=== PATIENT | male | born 1960 | race Hispanic/Latino ===

== ENCOUNTER 2018-01-18 16:32 | Inpatient (IN) | payer MEDICAID ==
[2018-01-17 23:17] VITALS: BMI 28.8
[2018-01-18] MEDS: Propofol 10 mg/ml 1,000 MG/100 ML VIAL IV PRN (16:59)
[2018-01-18] MEDS ORDERED: (Novolin R) Insulin Human Regular 100 units/ml vial SC SCH (17:00)
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
[2018-01-18] MEDS: DOBUTamine 500mg/250ml D5W 500 MG/250 ML BAG IV SCH (17:14)
[2018-01-18 17:33] LABS: BASO % 0.2 % (0.0-2.0); HEMOGLOBIN 11.4 g/dL (12.0-18.0); LYMPH # 0.3 K/uL (1.0-4.3); LYMPH % 4.1 % (20.0-40.0); MEAN CELL VOLUME 87.5 fL (80.0-94.0); MEAN CORPUSCULAR HEMOGLOBIN 28.8 pg (27.0-31.0); MEAN CORPUSCULAR HGB CONC 32.9 g/dL (33.0-37.0); MEAN PLATELET VOLUME 10.2 fL (7.2-11.7); MONO # 0.3 K/uL (0.0-0.8); MONO % 4.1 % (0.0-10.0); NEUT # 7.2 K/uL (1.8-7.0); NEUT % 91.6 % (50.0-75.0); PLATELET COUNT 144 K/uL (130-400); RBC 3.97 Mil/uL (4.40-5.90); RED CELL DISTRIBUTION WIDTH 16.3 % (11.5-14.5); WHITE BLOOD COUNT 7.9 K/uL (4.8-10.8)
[2018-01-18 17:48] LABS: ALB/GLOB RATIO 1.3 (1.0-2.1); ALBUMIN 3.6 g/dL (3.5-5.0); CALCIUM 7.4 mg/dl (8.6-10.4)
[2018-01-18] MEDS ORDERED: Sod Polystyrene Sulf 15 gm/60 ml Susp PO ONE (17:56)
[2018-01-18 18:14] LABS: HEPATITIS B SURFACE AG Negative (NEGATIVE)
[2018-01-18 18:21] LABS: HEPATITIS A IGM NEGATIVE (NEGATIVE); HEPATITIS B CORE AB NEGATIVE (NEGATIVE)
[2018-01-18 18:31] LABS: HEPATITIS C ANTIBODY NEGATIVE (NEGATIVE)
[2018-01-18 18:54] LABS: BASOPHIL 1 % (0-2); LYMPHOCYTE 6 % (20-40); MONOCYTE 5 % (0-10); NEUTROPHIL 88 % (50-75); PLATELET ESTIMATE NORMAL (NORMAL); TOTAL CELLS COUNTED 100
[2018-01-18 18:55] LABS: ANISOCYTOSIS SLIGHT; BURR CELLS SLIGHT; HYPOCHROMIC SLIGHT; OVALOCYTES SLIGHT; POIKILOCYTOSIS SLIGHT
[2018-01-19] MEDS: (Novolin R) Insulin Human Regular 100 units/ml vial SC SCH ×5 (00:25→21:26)
[2018-01-19] MEDS: Propofol 10 mg/ml 1,000 MG/100 ML VIAL IV PRN (04:32)
[2018-01-19 06:48] LABS: HEMOGLOBIN 11.3 g/dL (12.0-18.0); LYMPH # 0.3 K/uL (1.0-4.3); LYMPH % 3.7 % (20.0-40.0); MEAN CORPUSCULAR HEMOGLOBIN 29.5 pg (27.0-31.0); MEAN CORPUSCULAR HGB CONC 33.9 g/dL (33.0-37.0); MONO # 0.5 K/uL (0.0-0.8); MONO % 5.8 % (0.0-10.0); NEUT # 7.1 K/uL (1.8-7.0); NEUT % 90.5 % (50.0-75.0); PLATELET COUNT 124 K/uL (130-400); RBC 3.82 Mil/uL (4.40-5.90); RED CELL DISTRIBUTION WIDTH 16.2 % (11.5-14.5); WHITE BLOOD COUNT 7.8 K/uL (4.8-10.8)
[2018-01-19 06:53] LABS: ALB/GLOB RATIO 1.2 (1.0-2.1); ALBUMIN 3.4 g/dL (3.5-5.0); CALCIUM 8.3 mg/dl (8.6-10.4)
--- NOTE | 2018-01-19 07:57 | RAD ---
PROCEDURE: CHEST RADIOGRAPH, 1 VIEW HISTORY: intubated COMPARISON: None available. FINDINGS: LUNGS: Hazy opacity left lung base compatible with left inferolateral pleural thickening and fluid. Concomitant compressive atelectasis here possible. No dense consolidation noted. PLEURA: No pneumothorax. Left inferolateral pleural thickening/ fluid CARDIOVASCULAR: Mild cardiomegaly. Sternotomy. Coronary artery bypass clips. OSSEOUS STRUCTURES: Possible old healed right lateral rib fracture VISUALIZED UPPER ABDOMEN: Normal. OTHER FINDINGS: Endotracheal tube tip 3.5 cm cephalad to ayush Inferred nasogastric tube tip inferior to the inferior field of view image. At least coursing stomach. IMPRESSION: Left inferolateral pleural effusion/thickening. Concomitant subsegmental atelectasis (and/or infiltrate) also needs to be considered
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
[2018-01-19] MEDS: Cefepime IV 1 gm in Dextrose 1 GM/50 ML BAG IVPB SCH (09:07)
[2018-01-19 09:30] LABS: LYMPHOCYTE 4 % (20-40); MONOCYTE 4 % (0-10); NEUTROPHIL 92 % (50-75); TOTAL CELLS COUNTED 100
--- NOTE | 2018-01-19 09:30 | CP.PCM.PN ---
Subjective - Date & Time of Evaluation Date of Evaluation: 01/19/18 Time of Evaluation: 09:25 - Subjective Subjective: Medical Attending Note: Patient is awake and alert. He is not oriented. He is does not know where he is which is expected nor recall the events that brought him here. Patient does not have family except his friend Geoffrey Patient reports he is in pain over the chest. I have explained to him that he had chest compressions when he arrested at [facility] and that he is currently at [facility] because they can perform dialysis. Patient underwent dialysis. I spoke with his nurse, Rubia, they have lowered the sedation on him since he was apneic when they tried cpap trials overnight. He reports he is aware of tube and he feels it. He is ambivalent about immediate removal of the ET tube. He does not remember creation of POLST from prior hospitalization. He is amenable to discussion with the ICU in regards to the tube. He denies headache, reports chest pain, denies abdominal pain, and reports he was having diarrhea. patient is on 2 pressors, low sedation. Objective - Vital Signs/Intake and Output Vital Signs (last 24 hours): Temp Pulse Resp BP Pulse Ox 98.7 F 94 H 17 155/74 H 99 01/19/18 08:00 01/19/18 08:00 01/19/18 08:00 01/19/18 08:00 01/19/18 08:00 Intake and Output: 01/19/18 01/19/18 06:59 18:59 Intake Total 306.1 78.3 Output Total 345 25 Balance -38.9 53.3 - Medications Medications: Current Medications Acetaminophen (Tylenol 650 Mg Supp) 650 mg WA Q6H PRN PRN Reason: Fever >100.4 F Aspirin (Aspirin Chewable) 81 mg PO DAILY [facility] Last Admin: 01/19/18 09:09 Dose: 81 mg Calcium Acetate (Phoslo) 667 mg PO BIDCC [facility] Last Admin: 01/19/18 07:38 Dose: 667 mg Epoetin Jasiel (Procrit) 10,000 unit IV TTS [facility] Last Admin: 01/19/18 09:06 Dose: 10,000 unit Heparin Sodium (Porcine) (Heparin) 5,000 units SC Q8 [facility] Last Admin: 01/19/18 05:26 Dose: 5,000 units Hydrocortisone Sodium Succinate (Solu-Cortef) 50 mg IV Q8H [facility] Last Admin: 01/19/18 08:05 Dose: 50 mg Norepinephrine Bitartrate 8 mg (/ Sodium Chloride) 258 mls @ 7.74 mls/hr IV .Q24H PRN; Protocol; 4 MCG/MIN PRN Reason: TITRATE PER MD ORDER Propofol (Diprivan) 1,000 mg in 100 mls @ 2.585 mls/hr IV .Q24H PRN; Protocol; 5 MCG/KG/MIN PRN Reason: TITRATE PER MD ORDER Last Titration: 01/19/18 07:38 Dose: 5 mcg/kg/min, 2.585 mls/hr Dobutamine HCl/Dextrose (Dobutamine/Dextrose 5% 500mg/250ml) 500 mg in 250 mls @ 6.464 mls/hr IV .Q24H [facility]; 2.5 MCG/KG/MIN PRN Reason: Protocol Last Admin: 01/18/18 17:14 Dose: 2.5 mcg/kg/min, 6.464 mls/hr Cefepime HCl (Maxipime Iv 1 Gm Premix) 1 gm in 50 mls @ 100 mls/hr IVPB Q24H [facility] PRN Reason: Protocol Last Admin: 01/19/18 09:07 Dose: 100 mls/hr Insulin Human Regular (Novolin R) 0 unit SC Q6H [facility] PRN Reason: Protocol Last Admin: 01/19/18 06:11 Dose: 2 u Pantoprazole Sodium (Protonix Inj) 40 mg IVP DAILY [facility] Last Admin: 01/19/18 09:06 Dose: 40 mg - Labs Labs: 01/19/18 06:32 01/19/18 06:20 - Constitutional Appears: Non-toxic, No Acute Distress - Head Exam Additional comments: intubated. OGT. - Eye Exam Eye Exam: EOMI, PERRL - Respiratory Exam Respiratory Exam: Decreased Breath Sounds, Rales (bibasilar) Additional comments: intubated on vent PRVC AC - Cardiovascular Exam Cardiovascular Exam: REGULAR RHYTHM, +S1, +S2 - GI/Abdominal Exam GI & Abdominal Exam: Soft, Normal Bowel Sounds. absent: Distended, Firm, Guarding, Rigid, Tenderness, Rebound - Exam Additional comments: TVP via the groin (right side) Harris placed - Extremities Exam Extremities Exam: absent: Pedal Edema, Tenderness - Neurological Exam Neurological Exam: Alert, Awake Neuro motor strength exam: Left Upper Extremity: 5, Right Upper Extremity: 5, Left Lower Extremity: 5, Right Lower Extremity: 5 - Psychiatric Exam Psychiatric exam: Normal Affect, Normal Mood - Skin Skin Exam: Dry, Normal Color, Warm Assessment and Plan (1) Heart block Assessment & Plan: patient was found in complete heart block, cardiogenic shock and hyperkalemic on 01/18/18. Had a temporary venous pacemaker placed on 01/18/18 Was code blue and code heart 01/18/18 Transferred to [facility] for dialysis primarily Status: Acute (2) Cardiogenic shock Assessment & Plan: Patient is on 2 pressors Has temporary pacemaker at [facility]. Status: Acute (3) History of NJ (myocardial infarction) Assessment & Plan: 3 prior of NJ Official cardiac cath not available from [facility]--> per review of record no acute occlusion and temporary Echocardiogram (01/18/18): left ventricle is normal size, systolic function is moderately impaired EF:30% mitral regurgitation is trace, trace tricupsid regurgitation, s/p cardiac arrest, s/p TVR, and cardiac cath prior cath (04/07/17): inferobasal hypokinesis of the LV with preserved LV function EF: 50%. 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 Patent saphenous vein graft to the posterior lateral branch. Chronic. Aspirin 81mg PO daily Status: Acute (4) Hx of CABG Assessment & Plan: 3 prior of [place] Echocardiogram (01/18/18): left ventricle is normal size, systolic function is moderately impaired EF:30% mitral regurgitation is trace, trace tricupsid regurgitation, s/p cardiac arrest, s/p TVR, and cardiac cath prior cath (04/07/17): inferobasal hypokinesis of the LV with preserved LV function EF: 50%. 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 Patent saphenous vein graft to the posterior lateral branch. Chronic. Status: Acute (5) Diabetes Assessment & Plan: hgba1c: 7.6 Accuchecks Q6H insulin sliding scale subq Status: Acute (6) Amputation foot, unilat Assessment & Plan: right lower extremity Status: Chronic (7) Pneumonia Assessment & Plan: Cefepime 1gram IV q12 Status: Acute (8) ESRD (end stage renal disease) on dialysis Assessment & Plan: Nephrology (Dr. Wilson) help appreciated patient underwent dialysis last night when he was transferred from [facility] He is //thursday as outpatient Status: Acute (9) Prophylactic measure Assessment & Plan: POLST: DNR/DNI Surrogate: Geoffrey Oro [phone] Status: Acute
[2018-01-19 09:31] LABS: ANISOCYTOSIS SLIGHT; PLATELET ESTIMATE NORMAL (NORMAL)
[2018-01-19] MEDS ORDERED: Epoetin Alfa 10,000 unit/ml Dialysis IV SCH (10:00)
--- NOTE | 2018-01-19 10:08 | US ---
Right upper quadrant abdominal ultrasound History: Elevated liver enzymes. Comparison: None available. Technique: Real-time sonography was performed through the right upper quadrant of the abdomen. Findings: Liver: 18 centimeters in length. Increased echogenicity of the hepatic parenchymal cortex suggestive for fatty infiltration versus hepatic parenchymal disease. Clinical correlation. Prior cholecystectomy. Common bile duct measures 6 millimeters, within normal limits. Limited visualization of the pancreas. Visualized aorta and IVC are preserved. Right kidney: 9.8 x 4.8 x 4.8 centimeters. Increased echogenicity of the renal parenchymal cortex suggestive for medical renal disease. No calculi or hydronephrosis. Right pleural effusion noted. Impression: Increased echogenicity of the hepatic parenchymal cortex suggestive for fatty infiltration versus hepatic parenchymal disease. Clinical correlation. Prior cholecystectomy. Increased echogenicity of the renal parenchymal cortex suggestive for medical renal disease. Clinical correlation. Limited visualization of the pancreas. Right pleural effusion.
--- NOTE | 2018-01-19 11:45 | CP.CCUPN ---
<Annel Fraser - Last Filed: 01/19/18 11:43> CCU Subjective - Physician Review Subjective (Free Text): Patient seen and examined at bedside. Patient is extubated. He spoke with palliative care, if he decompensates he does not want to be reintubated. POLST DNR/DNI. CCU Objective - Vital Signs / Intake & Output Vital Signs (Last 4 hours): Vital Signs Temp Pulse Resp BP Pulse Ox 01/19/18 11:00 100 H 16 139/74 99 01/19/18 10:00 97 H 15 128/63 98 01/19/18 09:00 96 H 17 154/73 H 99 01/19/18 08:00 98.7 F 94 H 17 155/74 H 99 Intake and Output (Last 8hrs): Intake & Output 01/18/18 01/19/18 01/19/18 22:59 06:59 14:59 Intake Total 93.6 231.5 153.7 Output Total 125 220 170 Balance -31.4 11.5 -16.3 Weight 86 lb 4.8 oz 198 lb 8 oz Intake: IV 15 105 10 Intake, IV Amount 78.6 126.5 43.7 Left Distal Port Femoral 40.8 54.4 34.0 Left Medial Port Femoral 37.8 72.1 9.7 Oral 0 Tube Feeding 0 100 Output: Gastric Amount 100 100 100 Stomach 100 100 100 Urine 25 120 70 Urethral (Harris) 25 120 70 Other: Voiding Method Indwelling Catheter # Bowel Movements 1 0 - Physical Exam Head: Positive for: Atraumatic, Normocephalic Pupils: Positive for: PERRL Extroacular Muscles: Positive for: EOMI Conjunctiva: Positive for: Normal Mouth: Positive for: Dry Respiratory/Chest: Positive for: Clear to Auscultation Cardiovascular: Positive for: Regular Rate and Rhythm Abdomen: Positive for: Normal Bowel Sounds - Medications Active Medications: Active Medications Generic Name Dose Route Start Last Admin Trade Name Freq PRN Reason Stop Dose Admin Acetaminophen 650 mg 01/18/18 16:37 Tylenol 650 Mg Supp NE Q6H PRN Fever >100.4 F Aspirin 81 mg 01/19/18 10:00 01/19/18 09:09 Aspirin Chewable PO 81 mg DAILY DESTINI Administration Calcium Acetate 1,334 mg 01/19/18 09:45 01/19/18 10:19 Phoslo PO 1,334 mg TIDCC DESTINI Administration Heparin Sodium (Porcine) 5,000 units 01/18/18 22:00 01/19/18 05:26 Heparin SC 5,000 units Q8 DESTINI Administration Hydrocortisone Sodium Succinate 50 mg 01/18/18 17:00 01/19/18 08:05 Solu-Cortef IV 50 mg Q8H DESTINI Administration Norepinephrine Bitartrate 8 mg 258 mls @ 7.74 mls/hr 01/18/18 16:44 / Sodium Chloride IV .Q24H PRN TITRATE PER MD ORDER Protocol 4 MCG/MIN Propofol 1,000 mg in 100 mls @ 2.585 mls/hr 01/18/18 16:46 01/19/18 09:39 Diprivan IV 0 mcg/kg/min .Q24H PRN 0 mls/hr TITRATE PER MD ORDER Titration Protocol 5 MCG/KG/MIN Dobutamine HCl/Dextrose 500 mg in 250 mls @ 6.464 mls/hr 01/18/18 17:00 01/18 17:14 Dobutamine/Dextrose 5% 500mg/250ml IV 2.5 mcg/kg/min .Q24H DESTINI 6.464 mls/hr Protocol Administration 2.5 MCG/KG/MIN Cefepime HCl 1 gm in 50 mls @ 100 mls/hr 01/19/18 10:00 01/19/18 09:07 Maxipime Iv 1 Gm Premix IVPB 100 mls/hr Q24H DESTINI Administration Protocol Insulin Human Regular 0 unit 01/19/18 00:00 01/19/18 06:11 Novolin R SC 2 u Q6H DESTINI Administration Protocol Pantoprazole Sodium 40 mg 01/19/18 10:00 01/19/18 09:06 Protonix Inj IVP 40 mg DAILY DESTINI Administration - Patient Studies Lab Studies: Lab Studies 01/19/18 01/19/18 01/19/18 Range/Units 06:38 06:32 06:20 WBC 7.8 (4.8-10.8) K/uL RBC 3.82 L (4.40-5.90) Mil/uL Hgb 11.3 L (12.0-18.0) g/dL Hct 33.3 L (35.0-51.0) % MCV 87.0 (80.0-94.0) fL MCH 29.5 (27.0-31.0) pg MCHC 33.9 (33.0-37.0) g/dL RDW 16.2 H (11.5-14.5) % Plt Count 124 L D (130-400) K/uL MPV 10.0 (7.2-11.7) fL Neut % (Auto) 90.5 H (50.0-75.0) % Lymph % (Auto) 3.7 L (20.0-40.0) % Hartley % (Auto) 5.8 (0.0-10.0) % Eos % (Auto) 0.0 (0.0-4.0) % Baso % (Auto) 0.0 (0.0-2.0) % Neut # (Auto) 7.1 H (1.8-7.0) K/uL Lymph # (Auto) 0.3 L (1.0-4.3) K/uL Hartley # (Auto) 0.5 (0.0-0.8) K/uL Eos # (Auto) 0.0 (0.0-0.7) K/uL Baso # (Auto) 0.0 (0.0-0.2) K/uL Neutrophils % (Manual) 92 H (50-75) % Lymphocytes % (Manual) 4 L (20-40) % Monocytes % (Manual) 4 (0-10) % Basophils % (Manual) (0-2) % Platelet Estimate Normal (NORMAL) Hypochromasia (manual) Poikilocytosis (manual Anisocytosis (manual) Slight Ovalocytes [place] Cells Sodium 135 (132-148) mmol/L Potassium 4.7 (3.6-5.2) mmol/L Chloride 94 L (98-107) mmol/L Carbon Dioxide 23 (22-30) mmol/L Anion Gap 23 H (10-20) BUN 47 H (9-20) mg/dL Creatinine 8.4 H* (0.8-1.5) mg/dL Est GFR ( Amer) 8 Est GFR (Non-Af Amer) 7 POC Glucose (mg/dL) (65-110) mg/dL Random Glucose 184 H (75-110) mg/dL Lactic Acid 1.0 (0.7-2.1) mmol/L Calcium 8.3 L (8.6-10.4) mg/dl Phosphorus 10.5 H (2.5-4.5) mg/dL Magnesium 1.9 (1.6-2.3) mg/dL Total Bilirubin 0.6 (0.2-1.3) mg/dL AST 243 H (17-59) U/L ALT 143 H (21-72) U/L Alkaline Phosphatase 75 (38-126) U/L Total Protein 6.3 (6.3-8.3) g/dL Albumin 3.4 L (3.5-5.0) g/dL Globulin 2.9 (2.2-3.9) gm/dL Albumin/Globulin Ratio 1.2 (1.0-2.1) Alpha Fetoprotein (0.0-7.5) ng/mL Random Vancomycin ug/mL Hepatitis A IgM Ab (NEGATIVE) Hep Bs Antigen (NEGATIVE) Hep B Core IgM Ab (NEGATIVE) Hepatitis C Antibody (NEGATIVE) 01/19/18 01/19/18 01/18/18 Range/Units 05:38 00:11 19:07 WBC (4.8-10.8) K/uL RBC (4.40-5.90) Mil/uL Hgb (12.0-18.0) g/dL Hct (35.0-51.0) % MCV (80.0-94.0) fL MCH (27.0-31.0) pg MCHC (33.0-37.0) g/dL RDW (11.5-14.5) % Plt Count (130-400) K/uL MPV (7.2-11.7) fL Neut % (Auto) (50.0-75.0) % Lymph % (Auto) (20.0-40.0) % Hartley % (Auto) (0.0-10.0) % Eos % (Auto) (0.0-4.0) % Baso % (Auto) (0.0-2.0) % Neut # (Auto) (1.8-7.0) K/uL Lymph # (Auto) (1.0-4.3) K/uL Hartley # (Auto) (0.0-0.8) K/uL Eos # (Auto) (0.0-0.7) K/uL Baso # (Auto) (0.0-0.2) K/uL Neutrophils % (Manual) (50-75) % Lymphocytes % (Manual) (20-40) % Monocytes % (Manual) (0-10) % Basophils % (Manual) (0-2) % Platelet Estimate (NORMAL) Hypochromasia (manual) Poikilocytosis (manual Anisocytosis (manual) Ovalocytes [place] Cells Sodium (132-148) mmol/L Potassium (3.6-5.2) mmol/L Chloride (98-107) mmol/L Carbon Dioxide (22-30) mmol/L Anion Gap (10-20) BUN (9-20) mg/dL Creatinine (0.8-1.5) mg/dL Est GFR ( Amer) Est GFR (Non-Af Amer) POC Glucose (mg/dL) 207 H 182 H (65-110) mg/dL Random Glucose (75-110) mg/dL Lactic Acid (0.7-2.1) mmol/L Calcium (8.6-10.4) mg/dl Phosphorus (2.5-4.5) mg/dL Magnesium (1.6-2.3) mg/dL Total Bilirubin (0.2-1.3) mg/dL AST (17-59) U/L ALT (21-72) U/L Alkaline Phosphatase (38-126) U/L Total Protein (6.3-8.3) g/dL Albumin (3.5-5.0) g/dL Globulin (2.2-3.9) gm/dL Albumin/Globulin Ratio (1.0-2.1) Alpha Fetoprotein (0.0-7.5) ng/mL Random Vancomycin ug/mL Hepatitis A IgM Ab (NEGATIVE) Hep Bs Antigen Negative (NEGATIVE) Hep B Core IgM Ab (NEGATIVE) Hepatitis C Antibody (NEGATIVE) 01/18/18 01/18/18 01/18/18 Range/Units 19:00 17:29 17:29 WBC (4.8-10.8) K/uL RBC (4.40-5.90) Mil/uL Hgb (12.0-18.0) g/dL Hct (35.0-51.0) % MCV (80.0-94.0) fL MCH (27.0-31.0) pg MCHC (33.0-37.0) g/dL RDW (11.5-14.5) % Plt Count (130-400) K/uL MPV (7.2-11.7) fL Neut % (Auto) (50.0-75.0) % Lymph % (Auto) (20.0-40.0) % Hartley % (Auto) (0.0-10.0) % Eos % (Auto) (0.0-4.0) % Baso % (Auto) (0.0-2.0) % Neut # (Auto) (1.8-7.0) K/uL Lymph # (Auto) (1.0-4.3) K/uL Hartley # (Auto) (0.0-0.8) K/uL Eos # (Auto) (0.0-0.7) K/uL Baso # (Auto) (0.0-0.2) K/uL Neutrophils % (Manual) (50-75) % Lymphocytes % (Manual) (20-40) % Monocytes % (Manual) (0-10) % Basophils % (Manual) (0-2) % Platelet Estimate (NORMAL) Hypochromasia (manual) Poikilocytosis (manual Anisocytosis (manual) Ovalocytes [place] Cells Sodium (132-148) mmol/L Potassium (3.6-5.2) mmol/L Chloride (98-107) mmol/L Carbon Dioxide (22-30) mmol/L Anion Gap (10-20) BUN (9-20) mg/dL Creatinine (0.8-1.5) mg/dL Est GFR ( Amer) Est GFR (Non-Af Amer) POC Glucose (mg/dL) (65-110) mg/dL Random Glucose (75-110) mg/dL Lactic Acid (0.7-2.1) mmol/L Calcium (8.6-10.4) mg/dl Phosphorus (2.5-4.5) mg/dL Magnesium (1.6-2.3) mg/dL Total Bilirubin (0.2-1.3) mg/dL AST (17-59) U/L ALT (21-72) U/L Alkaline Phosphatase (38-126) U/L Total Protein (6.3-8.3) g/dL Albumin (3.5-5.0) g/dL Globulin (2.2-3.9) gm/dL Albumin/Globulin Ratio (1.0-2.1) Alpha Fetoprotein 1.5 (0.0-7.5) ng/mL Random Vancomycin < 5.0 ug/mL Hepatitis A IgM Ab Negative (NEGATIVE) Hep Bs Antigen Negative (NEGATIVE) Hep B Core IgM Ab Negative (NEGATIVE) Hepatitis C Antibody Negative (NEGATIVE) 01/18/18 01/18/18 01/18/18 Range/Units 17:29 17:29 17:29 WBC 7.9 (4.8-10.8) K/uL RBC 3.97 L (4.40-5.90) Mil/uL Hgb 11.4 L (12.0-18.0) g/dL Hct 34.8 L (35.0-51.0) % MCV 87.5 (80.0-94.0) fL MCH 28.8 (27.0-31.0) pg MCHC 32.9 L (33.0-37.0) g/dL RDW 16.3 H (11.5-14.5) % Plt Count 144 (130-400) K/uL MPV 10.2 (7.2-11.7) fL Neut % (Auto) 91.6 H (50.0-75.0) % Lymph % (Auto) 4.1 L (20.0-40.0) % Hartley % (Auto) 4.1 (0.0-10.0) % Eos % (Auto) 0.0 (0.0-4.0) % Baso % (Auto) 0.2 (0.0-2.0) % Neut # (Auto) 7.2 H (1.8-7.0) K/uL Lymph # (Auto) 0.3 L (1.0-4.3) K/uL Hartley # (Auto) 0.3 (0.0-0.8) K/uL Eos # (Auto) 0.0 (0.0-0.7) K/uL Baso # (Auto) 0.0 (0.0-0.2) K/uL Neutrophils % (Manual) 88 H (50-75) % Lymphocytes % (Manual) 6 L (20-40) % Monocytes % (Manual) 5 (0-10) % Basophils % (Manual) 1 (0-2) % Platelet Estimate Normal (NORMAL) Hypochromasia (manual) Slight Poikilocytosis (manual Slight Anisocytosis (manual) Slight Ovalocytes Slight [place] Cells Slight Sodium 132 (132-148) mmol/L Potassium 5.6 H (3.6-5.2) mmol/L Chloride 93 L (98-107) mmol/L Carbon Dioxide 19 L (22-30) mmol/L Anion Gap 26 H (10-20) BUN 66 H (9-20) mg/dL Creatinine 10.5 H* D (0.8-1.5) mg/dL Est GFR ( Amer) 6 Est GFR (Non-Af Amer) 5 POC Glucose (mg/dL) (65-110) mg/dL Random Glucose 178 H (75-110) mg/dL Lactic Acid 1.8 (0.7-2.1) mmol/L Calcium 7.4 L (8.6-10.4) mg/dl Phosphorus 11.5 H (2.5-4.5) mg/dL Magnesium 1.8 (1.6-2.3) mg/dL Total Bilirubin 0.7 (0.2-1.3) mg/dL AST 228 H (17-59) U/L ALT 150 H (21-72) U/L Alkaline Phosphatase 72 (38-126) U/L Total Protein 6.4 (6.3-8.3) g/dL Albumin 3.6 (3.5-5.0) g/dL Globulin 2.7 (2.2-3.9) gm/dL Albumin/Globulin Ratio 1.3 (1.0-2.1) Alpha Fetoprotein (0.0-7.5) ng/mL Random Vancomycin ug/mL Hepatitis A IgM Ab (NEGATIVE) Hep Bs Antigen (NEGATIVE) Hep B Core IgM Ab (NEGATIVE) Hepatitis C Antibody (NEGATIVE) 01/18/18 Range/Units 17:25 WBC (4.8-10.8) K/uL RBC (4.40-5.90) Mil/uL Hgb (12.0-18.0) g/dL Hct (35.0-51.0) % MCV (80.0-94.0) fL MCH (27.0-31.0) pg MCHC (33.0-37.0) g/dL RDW (11.5-14.5) % Plt Count (130-400) K/uL MPV (7.2-11.7) fL Neut % (Auto) (50.0-75.0) % Lymph % (Auto) (20.0-40.0) % Hartley % (Auto) (0.0-10.0) % Eos % (Auto) (0.0-4.0) % Baso % (Auto) (0.0-2.0) % Neut # (Auto) (1.8-7.0) K/uL Lymph # (Auto) (1.0-4.3) K/uL Hartley # (Auto) (0.0-0.8) K/uL Eos # (Auto) (0.0-0.7) K/uL Baso # (Auto) (0.0-0.2) K/uL Neutrophils % (Manual) (50-75) % Lymphocytes % (Manual) (20-40) % Monocytes % (Manual) (0-10) % Basophils % (Manual) (0-2) % Platelet Estimate (NORMAL) Hypochromasia (manual) Poikilocytosis (manual Anisocytosis (manual) Ovalocytes [place] Cells Sodium (132-148) mmol/L Potassium (3.6-5.2) mmol/L Chloride (98-107) mmol/L Carbon Dioxide (22-30) mmol/L Anion Gap (10-20) BUN (9-20) mg/dL Creatinine (0.8-1.5) mg/dL Est GFR ( Amer) Est GFR (Non-Af Amer) POC Glucose (mg/dL) 176 H (65-110) mg/dL Random Glucose (75-110) mg/dL Lactic Acid (0.7-2.1) mmol/L Calcium (8.6-10.4) mg/dl Phosphorus (2.5-4.5) mg/dL Magnesium (1.6-2.3) mg/dL Total Bilirubin (0.2-1.3) mg/dL AST (17-59) U/L ALT (21-72) U/L Alkaline Phosphatase (38-126) U/L Total Protein (6.3-8.3) g/dL Albumin (3.5-5.0) g/dL Globulin (2.2-3.9) gm/dL Albumin/Globulin Ratio (1.0-2.1) Alpha Fetoprotein (0.0-7.5) ng/mL Random Vancomycin ug/mL Hepatitis A IgM Ab (NEGATIVE) Hep Bs Antigen (NEGATIVE) Hep B Core IgM Ab (NEGATIVE) Hepatitis C Antibody (NEGATIVE) Laboratory Results - last 24 hr 01/18/18 01/18/18 01/18/18 17:25 17:29 17:29 WBC 7.9 RBC 3.97 L Hgb 11.4 L Hct 34.8 L MCV 87.5 MCH 28.8 MCHC 32.9 L RDW 16.3 H Plt Count 144 MPV 10.2 Neut % (Auto) 91.6 H Lymph % (Auto) 4.1 L [place] % (Auto) 4.1 Eos % (Auto) 0.0 Baso % (Auto) 0.2 Neut # (Auto) 7.2 H Lymph # (Auto) 0.3 L [place] # (Auto) 0.3 Eos # (Auto) 0.0 Baso # (Auto) 0.0 Neutrophils % (Manual) 88 H Lymphocytes % (Manual) 6 L Monocytes % (Manual) 5 Basophils % (Manual) 1 Platelet Estimate Normal Hypochromasia (manual) Slight Poikilocytosis (manual Slight Anisocytosis (manual) Slight Ovalocytes Slight [place] Cells Slight Sodium 132 Potassium 5.6 H Chloride 93 L Carbon Dioxide 19 L Anion Gap 26 H BUN 66 H Creatinine 10.5 H* D Est GFR ( Amer) 6 Est GFR (Non-Af Amer) 5 POC Glucose (mg/dL) 176 H Random Glucose 178 H Lactic Acid Calcium 7.4 L Phosphorus 11.5 H Magnesium 1.8 Total Bilirubin 0.7 AST 228 H ALT 150 H Alkaline Phosphatase 72 Total Protein 6.4 Albumin 3.6 Globulin 2.7 Albumin/Globulin Ratio 1.3 Alpha Fetoprotein Random Vancomycin Hepatitis A IgM Ab Hep Bs Antigen Hep B Core IgM Ab Hepatitis C Antibody 01/18/18 01/18/18 01/18/18 17:29 17:29 17:29 WBC RBC Hgb Hct MCV MCH MCHC RDW Plt Count MPV Neut % (Auto) Lymph % (Auto) [place] % (Auto) Eos % (Auto) Baso % (Auto) Neut # (Auto) Lymph # (Auto) Hart[place] # (Auto) Eos # (Auto) Baso # (Auto) Neutrophils % (Manual) Lymphocytes % (Manual) Monocytes % (Manual) Basophils % (Manual) Platelet Estimate Hypochromasia (manual) Poikilocytosis (manual Anisocytosis (manual) Ovalocytes [place] Cells Sodium Potassium Chloride Carbon Dioxide Anion Gap BUN Creatinine Est GFR ( Amer) Est GFR (Non-Af Amer) POC Glucose (mg/dL) Random Glucose Lactic Acid 1.8 Calcium Phosphorus Magnesium Total Bilirubin AST ALT Alkaline Phosphatase Total Protein Albumin Globulin Albumin/Globulin Ratio Alpha Fetoprotein Random Vancomycin < 5.0 Hepatitis A IgM Ab Negative Hep Bs Antigen Negative Hep B Core IgM Ab Negative Hepatitis C Antibody Negative 01/18/18 01/18/18 01/19/18 19:00 19:07 00:11 WBC RBC Hgb Hct MCV MCH MCHC RDW Plt Count MPV Neut % (Auto) Lymph % (Auto) [place] % (Auto) Eos % (Auto) Baso % (Auto) Neut # (Auto) Lymph # (Auto) [place] # (Auto) Eos # (Auto) Baso # (Auto) Neutrophils % (Manual) Lymphocytes % (Manual) Monocytes % (Manual) Basophils % (Manual) Platelet Estimate Hypochromasia (manual) Poikilocytosis (manual Anisocytosis (manual) Ovalocytes [place] Cells Sodium Potassium Chloride Carbon Dioxide Anion Gap BUN Creatinine Est GFR ( Amer) Est GFR (Non-Af Amer) POC Glucose (mg/dL) 182 H Random Glucose Lactic Acid Calcium Phosphorus Magnesium Total Bilirubin AST ALT Alkaline Phosphatase Total Protein Albumin Globulin Albumin/Globulin Ratio Alpha Fetoprotein 1.5 Random Vancomycin Hepatitis A IgM Ab Hep Bs Antigen Negative Hep B Core IgM Ab Hepatitis C Antibody 01/19/18 01/19/18 01/19/18 05:38 06:20 06:32 WBC 7.8 RBC 3.82 L Hgb 11.3 L Hct 33.3 L MCV 87.0 MCH 29.5 MCHC 33.9 RDW 16.2 H Plt Count 124 L D MPV 10.0 Neut % (Auto) 90.5 H Lymph % (Auto) 3.7 L [place] % (Auto) 5.8 Eos % (Auto) 0.0 Baso % (Auto) 0.0 Neut # (Auto) 7.1 H Lymph # (Auto) 0.3 L [place] # (Auto) 0.5 Eos # (Auto) 0.0 Baso # (Auto) 0.0 Neutrophils % (Manual) 92 H Lymphocytes % (Manual) 4 L Monocytes % (Manual) 4 Basophils % (Manual) Platelet Estimate Normal Hypochromasia (manual) Poikilocytosis (manual Anisocytosis (manual) Slight Ovalocytes [place] Cells Sodium 135 Potassium 4.7 Chloride 94 L Carbon Dioxide 23 Anion Gap 23 H BUN 47 H Creatinine 8.4 H* Est GFR ( Amer) 8 Est GFR (Non-Af Amer) 7 POC Glucose (mg/dL) 207 H Random Glucose 184 H Lactic Acid Calcium 8.3 L Phosphorus 10.5 H Magnesium 1.9 Total Bilirubin 0.6 AST 243 H ALT 143 H Alkaline Phosphatase 75 Total Protein 6.3 Albumin 3.4 L Globulin 2.9 Albumin/Globulin Ratio 1.2 Alpha Fetoprotein Random Vancomycin Hepatitis A IgM Ab Hep Bs Antigen Hep B Core IgM Ab Hepatitis C Antibody 01/19/18 06:38 WBC RBC Hgb Hct MCV MCH MCHC RDW Plt Count MPV Neut % (Auto) Lymph % (Auto) [place] % (Auto) Eos % (Auto) Baso % (Auto) Neut # (Auto) Lymph # (Auto) [place] # (Auto) Eos # (Auto) Baso # (Auto) Neutrophils % (Manual) Lymphocytes % (Manual) Monocytes % (Manual) Basophils % (Manual) Platelet Estimate Hypochromasia (manual) Poikilocytosis (manual Anisocytosis (manual) Ovalocytes [place] Cells Sodium Potassium Chloride Carbon Dioxide Anion Gap BUN Creatinine Est GFR ( Amer) Est GFR (Non-Af Amer) POC Glucose (mg/dL) Random Glucose Lactic Acid 1.0 Calcium Phosphorus Magnesium Total Bilirubin AST ALT Alkaline Phosphatase Total Protein Albumin Globulin Albumin/Globulin Ratio Alpha Fetoprotein Random Vancomycin Hepatitis A IgM Ab Hep Bs Antigen Hep B Core IgM Ab Hepatitis C Antibody Fingerstick Blood Sugar Results: 233 Critical Care Progress Note - Nutrition Nutrition: Nutrition Category Date Time Status NPO Diet [DIET] Diets 01/18/18 Dinner Active Assessment/Plan - Assessment and Plan (Free Text) Assessment: This is a 57 year old male with PMHx of HTN, CAD with CABG, s/p 3 stents, ND x 3 , T2DM on insulin with diabetic neuropathy and gastroparesis,history of diabetic foot infections S/P amputation of the 5 digits of his right foot, ESRD on HD TTS with Right AVF, hx of permacath related infection with psuedomonas and septic embolic (rule out endocarditis via FLAKITO), patient was admitted to [facility] ([facility] on 01/17, as a Code blue s/p 3 rounds of epi. Patient is intubated on Levophed and Dobutamine s/p cardiac catherization - which showed no obstruction of present graphs, LVEF 25-30%. Patient is transferred to [facility] for dialysis. Extubated 01/19/18. 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 No acute intracranial abnormality. - Aspiration precautions Cardio: A: Cardiogenic Shock - Currently on Dobutamine tapering off - Pending ECHO (done at [facility]): LVEF 30%, systolic function severely impaired A: Complete heart block - Pacing wire placed during cardiac cath - EP consulted for pacemaker/AICD A: HF with rEF with LVEF 30% A: Hx HTN, HLD - held all BP meds - Held Crestor 2/2 transaminitis A: CAD with CABG, s/p 3 stents, ND x 3 Pulm: A: Repiratory Failure - Extubated 01/19 GI: A: Transaminitis - As per GI- likely 2/ 2 ischemic hepatopathy - Viral studies negative and autoimmune studies ordered - Abdominal US: no acute findings - Held Crestor A: Chronic gastritis, nonbleeding esophagel ulcers - Prior EGD 04/06/2017 showing nonbleeding esophageal ulcers, LAGC esophagitis, and chronic gastritis - Protonix Renal: A: ESRD on HD TTS with Right AVF, oliguric -- Dr. Wilson consulted - Patient is noncompliant, attends dialysis 1 out of 3 weekly sessions - Carlee Richard - Received 100 MEQ bicarb Endo: A: T2DM on Insulin - Accuchecks, ISS - Q6H - HgbA1c 7.6 ID: A: Elevated lactate level - Likely 2/2 cardiac arrest - Lactate 4.2 -> 1.0 - On Cefepime, received 1 dose vanco, Random vanco <5.0 - F/U turner cultures done at [place] - negative to date - F/U procal - if low will DC abx Heme/ Onc: A: Anemia of Chronic Disease - Procrit, Phoslo Prophylaxis: - Protonix - SCDs, Hep Q8H - Left Femoral TLC 01/18/18 - CODE STATUS: POLST:DNR/DNI - patient was intubated out in the field by EMS Disposition: EP consulted for PPM placement. DW Dr. Arias, Annel Fraser DO, PGY-1 <Darian Arias - Last Filed: 01/19/18 18:19> CCU Objective - Vital Signs / Intake & Output Vital Signs (Last 4 hours): Vital Signs Temp Pulse Pulse Resp BP BP Pulse Ox 01/19/18 17:54 102 H 16 136/65 96 01/19/18 17:00 100 H 18 145/77 96 01/19/18 16:45 97.5 F L 99 H 22 145/77 01/19/18 16:30 148/74 01/19/18 16:15 149/78 01/19/18 16:00 98.7 F 99 H 25 H 154/78 H 159/78 H 98 01/19/18 15:45 154/78 H 01/19/18 15:30 148/73 01/19/18 15:15 147/72 01/19/18 15:00 104 H 22 130/76 125/70 97 01/19/18 14:45 130/76 01/19/18 14:30 137/70 Intake and Output (Last 8hrs): Intake & Output 01/19/18 01/19/18 01/19/18 06:59 14:59 22:59 Intake Total 231.5 294.1 320.4 Output Total 220 175 15 Balance 11.5 119.1 305.4 Weight 198 lb 8 oz Intake: IV 105 10 200 Intake, IV Amount 126.5 64.1 20.4 Left Distal Port Femoral 54.4 54.4 20.4 Left Medial Port Femoral 72.1 9.7 Oral 120 100 Tube Feeding 100 Output: Gastric Amount 100 100 Stomach 100 100 Urine 120 75 15 Urethral (Harris) 120 75 15 Other: # Bowel Movements 0 0 - Medications Active Medications: Active Medications Generic Name Dose Route Start Last Admin Trade Name Freq PRN Reason Stop Dose Admin Acetaminophen 650 mg 01/18/18 16:37 Tylenol 650 Mg Supp NE Q6H PRN Fever >100.4 F Aspirin 81 mg 01/19/18 10:00 01/19/18 09:09 Aspirin Chewable PO 81 mg DAILY DESTINI Administration Calcium Acetate 1,334 mg 01/19/18 09:45 01/19/18 17:49 Phoslo PO 1,334 mg TIDCC DESTINI Administration Heparin Sodium (Porcine) 5,000 units 01/18/18 22:00 01/19/18 14:00 Heparin SC Not Given Q8 DESTINI Hydrocortisone Sodium Succinate 50 mg 01/18/18 17:00 01/19/18 17:49 Solu-Cortef IV 50 mg Q8H DESTINI Administration Norepinephrine Bitartrate 8 mg 258 mls @ 7.74 mls/hr 01/18/18 16:44 / Sodium Chloride IV .Q24H PRN TITRATE PER MD ORDER Protocol 4 MCG/MIN Propofol 1,000 mg in 100 mls @ 2.585 mls/hr 01/18/18 16:46 01/19/18 09:39 Diprivan IV 0 mcg/kg/min .Q24H PRN 0 mls/hr TITRATE PER MD ORDER Titration Protocol 5 MCG/KG/MIN Dobutamine HCl/Dextrose 500 mg in 250 mls @ 6.464 mls/hr 01/18/18 17:00 01/19 17:54 Dobutamine/Dextrose 5% 500mg/250ml IV 2.5 mcg/kg/min .Q24H DESTINI 6.464 mls/hr Protocol Administration 2.5 MCG/KG/MIN Cefepime HCl 1 gm in 50 mls @ 100 mls/hr 01/19/18 10:00 01/19/18 09:07 Maxipime Iv 1 Gm Premix IVPB 100 mls/hr Q24H [facility] Administration Protocol Insulin Human Regular 0 unit 01/19/18 16:30 01/19/18 16:42 Novolin R SC Not Given ACHS [facility] Protocol Pantoprazole Sodium 40 mg 01/19/18 10:00 01/19/18 09:06 Protonix Inj IVP 40 mg DAILY [facility] Administration - Patient Studies Lab Studies: Microbiology Studies 01/18/18 17:06 MRSA Culture (Admit) - Final Naris MRSA NOT DETECTED Lab Studies 01/19/18 01/19/18 01/19/18 Range/Units 16:22 15:54 11:30 WBC (4.8-10.8) K/uL RBC (4.40-5.90) Mil/uL Hgb (12.0-18.0) g/dL Hct (35.0-51.0) % MCV (80.0-94.0) fL MCH (27.0-31.0) pg MCHC (33.0-37.0) g/dL RDW (11.5-14.5) % Plt Count (130-400) K/uL MPV (7.2-11.7) fL Neut % (Auto) (50.0-75.0) % Lymph % (Auto) (20.0-40.0) % [place] % (Auto) (0.0-10.0) % Eos % (Auto) (0.0-4.0) % Baso % (Auto) (0.0-2.0) % Neut # (Auto) (1.8-7.0) K/uL Lymph # (Auto) (1.0-4.3) K/uL Hart[place] # (Auto) (0.0-0.8) K/uL Eos # (Auto) (0.0-0.7) K/uL Baso # (Auto) (0.0-0.2) K/uL Neutrophils % (Manual) (50-75) % Lymphocytes % (Manual) (20-40) % Monocytes % (Manual) (0-10) % Basophils % (Manual) (0-2) % Platelet Estimate (NORMAL) Hypochromasia (manual) Poikilocytosis (manual Anisocytosis (manual) Ovalocytes [place] Cells Sodium (132-148) mmol/L Potassium (3.6-5.2) mmol/L Chloride (98-107) mmol/L Carbon Dioxide (22-30) mmol/L Anion Gap (10-20) BUN (9-20) mg/dL Creatinine (0.8-1.5) mg/dL Est GFR ( Amer) Est GFR (Non-Af Amer) POC Glucose (mg/dL) 142 H 275 H (65-110) mg/dL Random Glucose (75-110) mg/dL Lactic Acid (0.7-2.1) mmol/L Calcium (8.6-10.4) mg/dl Phosphorus (2.5-4.5) mg/dL Magnesium (1.6-2.3) mg/dL Total Bilirubin (0.2-1.3) mg/dL AST (17-59) U/L ALT (21-72) U/L Alkaline Phosphatase (38-126) U/L Total Creatine Kinase 4741 H (55-170) U/L CK-MB (Mass) 50.4 H (0.0-3.38) ng/mL Troponin I 173.0000 H* (0.00-0.120) ng/mL Total Protein (6.3-8.3) g/dL Albumin (3.5-5.0) g/dL Globulin (2.2-3.9) gm/dL Albumin/Globulin Ratio (1.0-2.1) Alpha Fetoprotein (0.0-7.5) ng/mL Hepatitis A IgM Ab (NEGATIVE) Hep Bs Antigen (NEGATIVE) Hep B Core IgM Ab (NEGATIVE) Hepatitis C Antibody (NEGATIVE) 01/19/18 01/19/18 01/19/18 Range/Units 06:38 06:32 06:20 WBC 7.8 (4.8-10.8) K/uL RBC 3.82 L (4.40-5.90) Mil/uL Hgb 11.3 L (12.0-18.0) g/dL Hct 33.3 L (35.0-51.0) % MCV 87.0 (80.0-94.0) fL MCH 29.5 (27.0-31.0) pg MCHC 33.9 (33.0-37.0) g/dL RDW 16.2 H (11.5-14.5) % Plt Count 124 L D (130-400) K/uL MPV 10.0 (7.2-11.7) fL Neut % (Auto) 90.5 H (50.0-75.0) % Lymph % (Auto) 3.7 L (20.0-40.0) % Hartley % (Auto) 5.8 (0.0-10.0) % Eos % (Auto) 0.0 (0.0-4.0) % Baso % (Auto) 0.0 (0.0-2.0) % Neut # (Auto) 7.1 H (1.8-7.0) K/uL Lymph # (Auto) 0.3 L (1.0-4.3) K/uL Hartley # (Auto) 0.5 (0.0-0.8) K/uL Eos # (Auto) 0.0 (0.0-0.7) K/uL Baso # (Auto) 0.0 (0.0-0.2) K/uL Neutrophils % (Manual) 92 H (50-75) % Lymphocytes % (Manual) 4 L (20-40) % Monocytes % (Manual) 4 (0-10) % Basophils % (Manual) (0-2) % Platelet Estimate Normal (NORMAL) Hypochromasia (manual) Poikilocytosis (manual Anisocytosis (manual) Slight Ovalocytes [place] Cells Sodium 135 (132-148) mmol/L Potassium 4.7 (3.6-5.2) mmol/L Chloride 94 L (98-107) mmol/L Carbon Dioxide 23 (22-30) mmol/L Anion Gap 23 H (10-20) BUN 47 H (9-20) mg/dL Creatinine 8.4 H* (0.8-1.5) mg/dL Est GFR ( Amer) 8 Est GFR (Non-Af Amer) 7 POC Glucose (mg/dL) (65-110) mg/dL Random Glucose 184 H (75-110) mg/dL Lactic Acid 1.0 (0.7-2.1) mmol/L Calcium 8.3 L (8.6-10.4) mg/dl Phosphorus 10.5 H (2.5-4.5) mg/dL Magnesium 1.9 (1.6-2.3) mg/dL Total Bilirubin 0.6 (0.2-1.3) mg/dL AST 243 H (17-59) U/L ALT 143 H (21-72) U/L Alkaline Phosphatase 75 (38-126) U/L Total Creatine Kinase (55-170) U/L CK-MB (Mass) (0.0-3.38) ng/mL Troponin I (0.00-0.120) ng/mL Total Protein 6.3 (6.3-8.3) g/dL Albumin 3.4 L (3.5-5.0) g/dL Globulin 2.9 (2.2-3.9) gm/dL Albumin/Globulin Ratio 1.2 (1.0-2.1) Alpha Fetoprotein (0.0-7.5) ng/mL Hepatitis A IgM Ab (NEGATIVE) Hep Bs Antigen (NEGATIVE) Hep B Core IgM Ab (NEGATIVE) Hepatitis C Antibody (NEGATIVE) 01/19/18 01/19/18 01/18/18 Range/Units 05:38 00:11 19:07 WBC (4.8-10.8) K/uL RBC (4.40-5.90) Mil/uL Hgb (12.0-18.0) g/dL Hct (35.0-51.0) % MCV (80.0-94.0) fL MCH (27.0-31.0) pg MCHC (33.0-37.0) g/dL RDW (11.5-14.5) % Plt Count (130-400) K/uL MPV (7.2-11.7) fL Neut % (Auto) (50.0-75.0) % Lymph % (Auto) (20.0-40.0) % [place] % (Auto) (0.0-10.0) % Eos % (Auto) (0.0-4.0) % Baso % (Auto) (0.0-2.0) % Neut # (Auto) (1.8-7.0) K/uL Lymph # (Auto) (1.0-4.3) K/uL [place] # (Auto) (0.0-0.8) K/uL Eos # (Auto) (0.0-0.7) K/uL Baso # (Auto) (0.0-0.2) K/uL Neutrophils % (Manual) (50-75) % Lymphocytes % (Manual) (20-40) % Monocytes % (Manual) (0-10) % Basophils % (Manual) (0-2) % Platelet Estimate (NORMAL) Hypochromasia (manual) Poikilocytosis (manual Anisocytosis (manual) Ovalocytes [place] Cells Sodium (132-148) mmol/L Potassium (3.6-5.2) mmol/L Chloride (98-107) mmol/L Carbon Dioxide (22-30) mmol/L Anion Gap (10-20) BUN (9-20) mg/dL Creatinine (0.8-1.5) mg/dL Est GFR ( Amer) Est GFR (Non-Af Amer) POC Glucose (mg/dL) 207 H 182 H (65-110) mg/dL Random Glucose (75-110) mg/dL Lactic Acid (0.7-2.1) mmol/L Calcium (8.6-10.4) mg/dl Phosphorus (2.5-4.5) mg/dL Magnesium (1.6-2.3) mg/dL Total Bilirubin (0.2-1.3) mg/dL AST (17-59) U/L ALT (21-72) U/L Alkaline Phosphatase (38-126) U/L Total Creatine Kinase (55-170) U/L CK-MB (Mass) (0.0-3.38) ng/mL Troponin I (0.00-0.120) ng/mL Total Protein (6.3-8.3) g/dL Albumin (3.5-5.0) g/dL Globulin (2.2-3.9) gm/dL Albumin/Globulin Ratio (1.0-2.1) Alpha Fetoprotein (0.0-7.5) ng/mL Hepatitis A IgM Ab (NEGATIVE) Hep Bs Antigen Negative (NEGATIVE) Hep B Core IgM Ab (NEGATIVE) Hepatitis C Antibody (NEGATIVE) 01/18/18 01/18/18 01/18/18 Range/Units 19:00 17:29 17:29 WBC (4.8-10.8) K/uL RBC (4.40-5.90) Mil/uL Hgb (12.0-18.0) g/dL Hct (35.0-51.0) % MCV (80.0-94.0) fL MCH (27.0-31.0) pg MCHC (33.0-37.0) g/dL RDW (11.5-14.5) % Plt Count (130-400) K/uL MPV (7.2-11.7) fL Neut % (Auto) (50.0-75.0) % Lymph % (Auto) (20.0-40.0) % [place] % (Auto) (0.0-10.0) % Eos % (Auto) (0.0-4.0) % Baso % (Auto) (0.0-2.0) % Neut # (Auto) (1.8-7.0) K/uL Lymph # (Auto) (1.0-4.3) K/uL [place] # (Auto) (0.0-0.8) K/uL Eos # (Auto) (0.0-0.7) K/uL Baso # (Auto) (0.0-0.2) K/uL Neutrophils % (Manual) 88 H (50-75) % Lymphocytes % (Manual) 6 L (20-40) % Monocytes % (Manual) 5 (0-10) % Basophils % (Manual) 1 (0-2) % Platelet Estimate Normal (NORMAL) Hypochromasia (manual) Slight Poikilocytosis (manual Slight Anisocytosis (manual) Slight Ovalocytes Slight [place] Cells Slight Sodium (132-148) mmol/L Potassium (3.6-5.2) mmol/L Chloride (98-107) mmol/L Carbon Dioxide (22-30) mmol/L Anion Gap (10-20) BUN (9-20) mg/dL Creatinine (0.8-1.5) mg/dL Est GFR ( Amer) Est GFR (Non-Af Amer) POC Glucose (mg/dL) (65-110) mg/dL Random Glucose (75-110) mg/dL Lactic Acid (0.7-2.1) mmol/L Calcium (8.6-10.4) mg/dl Phosphorus (2.5-4.5) mg/dL Magnesium (1.6-2.3) mg/dL Total Bilirubin (0.2-1.3) mg/dL AST (17-59) U/L ALT (21-72) U/L Alkaline Phosphatase (38-126) U/L Total Creatine Kinase (55-170) U/L CK-MB (Mass) (0.0-3.38) ng/mL Troponin I (0.00-0.120) ng/mL Total Protein (6.3-8.3) g/dL Albumin (3.5-5.0) g/dL Globulin (2.2-3.9) gm/dL Albumin/Globulin Ratio (1.0-2.1) Alpha Fetoprotein 1.5 (0.0-7.5) ng/mL Hepatitis A IgM Ab Negative (NEGATIVE) Hep Bs Antigen (NEGATIVE) Hep B Core IgM Ab Negative (NEGATIVE) Hepatitis C Antibody Negative (NEGATIVE) Laboratory Results - last 24 hr 01/18/18 01/18/18 01/18/18 17:29 17:29 19:00 WBC RBC Hgb Hct MCV MCH MCHC RDW Plt Count MPV Neut % (Auto) Lymph % (Auto) [place] % (Auto) Eos % (Auto) Baso % (Auto) Neut # (Auto) Lymph # (Auto) [place] # (Auto) Eos # (Auto) Baso # (Auto) Neutrophils % (Manual) 88 H Lymphocytes % (Manual) 6 L Monocytes % (Manual) 5 Basophils % (Manual) 1 Platelet Estimate Normal Hypochromasia (manual) Slight Poikilocytosis (manual Slight Anisocytosis (manual) Slight Ovalocytes Slight [place] Cells Slight Sodium Potassium Chloride Carbon Dioxide Anion Gap BUN Creatinine Est GFR ( Amer) Est GFR (Non-Af Amer) POC Glucose (mg/dL) Random Glucose Lactic Acid Calcium Phosphorus Magnesium Total Bilirubin AST ALT Alkaline Phosphatase Total Creatine Kinase CK-MB (Mass) Troponin I Total Protein Albumin Globulin Albumin/Globulin Ratio Alpha Fetoprotein 1.5 Hepatitis A IgM Ab Negative Hep Bs Antigen Hep B Core IgM Ab Negative Hepatitis C Antibody Negative 01/18/18 01/19/18 01/19/18 19:07 00:11 05:38 WBC RBC Hgb Hct MCV MCH MCHC RDW Plt Count MPV Neut % (Auto) Lymph % (Auto) [place] % (Auto) Eos % (Auto) Baso % (Auto) Neut # (Auto) Lymph # (Auto) [place] # (Auto) Eos # (Auto) Baso # (Auto) Neutrophils % (Manual) Lymphocytes % (Manual) Monocytes % (Manual) Basophils % (Manual) Platelet Estimate Hypochromasia (manual) Poikilocytosis (manual Anisocytosis (manual) Ovalocytes [place] Cells Sodium Potassium Chloride Carbon Dioxide Anion Gap BUN Creatinine Est GFR ( Amer) Est GFR (Non-Af Amer) POC Glucose (mg/dL) 182 H 207 H Random Glucose Lactic Acid Calcium Phosphorus Magnesium Total Bilirubin AST ALT Alkaline Phosphatase Total Creatine Kinase CK-MB (Mass) Troponin I Total Protein Albumin Globulin Albumin/Globulin Ratio Alpha Fetoprotein Hepatitis A IgM Ab Hep Bs Antigen Negative Hep B Core IgM Ab Hepatitis C Antibody 01/19/18 01/19/18 01/19/18 06:20 06:32 06:38 WBC 7.8 RBC 3.82 L Hgb 11.3 L Hct 33.3 L MCV 87.0 MCH 29.5 MCHC 33.9 RDW 16.2 H Plt Count 124 L D MPV 10.0 Neut % (Auto) 90.5 H Lymph % (Auto) 3.7 L [place] % (Auto) 5.8 Eos % (Auto) 0.0 Baso % (Auto) 0.0 Neut # (Auto) 7.1 H Lymph # (Auto) 0.3 L [place] # (Auto) 0.5 Eos # (Auto) 0.0 Baso # (Auto) 0.0 Neutrophils % (Manual) 92 H Lymphocytes % (Manual) 4 L Monocytes % (Manual) 4 Basophils % (Manual) Platelet Estimate Normal Hypochromasia (manual) Poikilocytosis (manual Anisocytosis (manual) Slight Ovalocytes [place] Cells Sodium 135 Potassium 4.7 Chloride 94 L Carbon Dioxide 23 Anion Gap 23 H BUN 47 H Creatinine 8.4 H* Est GFR ( Amer) 8 Est GFR (Non-Af Amer) 7 POC Glucose (mg/dL) Random Glucose 184 H Lactic Acid 1.0 Calcium 8.3 L Phosphorus 10.5 H Magnesium 1.9 Total Bilirubin 0.6 AST 243 H ALT 143 H Alkaline Phosphatase 75 Total Creatine Kinase CK-MB (Mass) Troponin I Total Protein 6.3 Albumin 3.4 L Globulin 2.9 Albumin/Globulin Ratio 1.2 Alpha Fetoprotein Hepatitis A IgM Ab Hep Bs Antigen Hep B Core IgM Ab Hepatitis C Antibody 01/19/18 01/19/18 01/19/18 11:30 15:54 16:22 WBC RBC Hgb Hct MCV MCH MCHC RDW Plt Count MPV Neut % (Auto) Lymph % (Auto) [place] % (Auto) Eos % (Auto) Baso % (Auto) Neut # (Auto) Lymph # (Auto) [place] # (Auto) Eos # (Auto) Baso # (Auto) Neutrophils % (Manual) Lymphocytes % (Manual) Monocytes % (Manual) Basophils % (Manual) Platelet Estimate Hypochromasia (manual) Poikilocytosis (manual Anisocytosis (manual) Ovalocytes [place] Cells Sodium Potassium Chloride Carbon Dioxide Anion Gap BUN Creatinine Est GFR ( Amer) Est GFR (Non-Af Amer) POC Glucose (mg/dL) 275 H 142 H Random Glucose Lactic Acid Calcium Phosphorus Magnesium Total Bilirubin AST ALT Alkaline Phosphatase Total Creatine Kinase 4741 H CK-MB (Mass) 50.4 H Troponin I 173.0000 H* Total Protein Albumin Globulin Albumin/Globulin Ratio Alpha Fetoprotein Hepatitis A IgM Ab Hep Bs Antigen Hep B Core IgM Ab Hepatitis C Antibody EKG/Cardiology Studies: Cardiology / EKG Studies 01/19/18 15:33 ELECTROCARDIOGRAM Stat Comment: Mode Of Transportation: Reason For Exam: chest pain Critical Care Progress Note - Nutrition Nutrition: Nutrition Category Date Time Status Consistent Carbohydrate [DIET] Diets 01/19/18 Lunch Active Attending/Attestation - Attestation I have personally seen and examined this patient.: Yes I have fully participated in the care of the patient.: Yes I have reviewed all pertinent clinical information: Yes Notes (Text): 01/19/18 18:15 patient seen and examined in the intensive care unit. Events noted. Patient extubated after a weaning trial Patient is awake and responsive status post cardiac cath yesterday and transvenous pacemaker placement Cardiology consult Ejection fraction 20-25%, consider AICD Seen by EPS
--- NOTE | 2018-01-19 12:36 | CP.PCM.CON ---
History of Present Illness - History of Present Illness History of Present Illness: Nephrology Consultation Note: Assessment: critical NSTEMI, cardiac arrest, cardiogenic shock, CHF lvef 30% lactic acidosis, hyperkalemia hx of esophageal ulceration, gastroparesis Diabetic chronic Kidney Disease (E11.22) Hypertensive Chronic Kidney Disease (I12.0) End stage renal disease (N18.6) dependence on hemodialysis (Z99.2) (TTS) Anemia (D64.9), Hyperphosphatemia (E83.39), Secondary Hyperparathyroidism (E21.1 ), HTN (I12.0) CAD s/p CABG chronic urine retention Plan: HD today as ordered per TTS schedule. continue with Nephrovite 1 tab/day. pt consented for HD last Hb 11.3 hence No TAMICA at present maintain hemodynamic stable. Glycemic control, Dialysis consistent diet added phos binders. pt non-compliant to binders as outpt Further work up/management as per primary team Dose meds/antibiotics for ESRD status. Avoid fleets enema/magnesium based laxatives. Thanks for allowing me to participate in care of your patient. Will follow patient with you. Please call if any Qs. had d/w icu team. Dr Philip Wilson Office: [phone] reason for consult: ESRD HPI: Pt is a 57 y/o M with hx of ESRD on hemodialysis (TTS) via permacath, last dialysis sat, chronic anemia, hyperphosphatemia, secondary hyperparathyroidism, Diabetes Mellitus, hypertension, urine retention s/p myles , hx of permacath related infection with psuedomonas and septic embolic, CAD s/ p CABG, esophageal ulceration, gastroparesis came with shortness of breath and went in to cardiac arrest. cardiac cath: non obstructive. had TVP placed and transferred to [facility] for dialysis. he underwent HD last night and extubated today 01/19/18. he feels better now outpt HD: refuses HD for 4 hrs as ordered, regularly cuts treatment time to 3 hrs only, counselled and educated multiple times. often misses HD as well ROS: improved. feels better. SOB better. denies CP/nausea/vomitting. rest all other neg Physical Examination: General Appearance: pt extubated. ill appearing Vitals reviewed and noted as below Head; Atraumatic, normocephalic ENT: normal mucosa EYES: Pupils are equal, round and reactive to light accommodation. Eye muscles and extraocular movement intact. Sclera is anicteric. Neck; supple no lymphadenopathy, no thyromegaly or bruit Lungs: Normal respiratory rate/effort. Breath sounds bilateral equal and with rales+ Heart: Normal rate. s1s2 normal. No rub or gallop. Extremities: no edema. No varicose veins. 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 Normal turgor. No rash. Palpitation: Normal elasticity for age Abdomen: Abdomen is soft. Bowel sounds +. There is no abdominal tenderness, no guarding/rigidity or organomegaly Psych: Ao x 3, normal affect mood MSK: no joint tenderness or swelling. Digits and nails normal, no deformity. had toe amputations : kidney or bladder not palpable. has chronic myles Access: patent AVF Labs/imaging reviewed. Past medical history, past surgical history, family history, social history, allergy reviewed and noted as below Family Hx: no hx of CKD. Non contributory Past Patient History - Infectious Disease Hx of Infectious Diseases: None - Tetanus Immunizations Tetanus Immunization: Unknown - Past Medical History & Family History Past Medical History?: Yes - Past Social History Smoking Status: Current Some Days Smoker - CARDIAC Hx Cardiac Disorders: Yes (CAD, MS x 3, CABG x 3) Hx Congestive Heart Failure: Yes Hx Hypertension: Yes - PULMONARY Hx Respiratory Disorders: Yes Other/Comment: PULMONARY EDEMA - NEUROLOGICAL Hx Neurological Disorder: Yes (NEUROPATHY) HX Cerebrovascular Accident: Yes Hx Dizziness: Yes (SYNCOPE) - HEENT Hx HEENT Problems: No (CONTACT LENSES) - RENAL Hx Chronic Kidney Disease: Yes Hx Dialysis: Yes Type of Dialysis Access: RIGHT AVF Date of Last Dialysis Treatment: 01/14/18 Hx Renal Failure: Yes - ENDOCRINE/METABOLIC Hx Endocrine Disorders: Yes Hx Diabetes Mellitus Type 2: Yes - HEMATOLOGICAL/ONCOLOGICAL Hx Blood Disorders: No - INTEGUMENTARY Hx Dermatological Problems: Yes Other/Comment: righty lower ext rash, pt stated "I have had it about 20 yrs" - MUSCULOSKELETAL/RHEUMATOLOGICAL Hx Falls: No - GASTROINTESTINAL Hx Gastrointestinal Disorders: Yes (GASTROPARESIS) - GENITOURINARY/GYNECOLOGICAL Hx Genitourinary Disorders: Yes (URINARY RETENTION-MYLES) Hx Urinary Tract Infection: Yes - PSYCHIATRIC Hx Substance Use: Yes - SURGICAL HISTORY Hx Cardiac Catheterization: Yes Hx Cholecystectomy: Yes Hx Coronary Stent: Yes (3) Other/Comment: shunt rt arm,L HIP SX,L KNEE SX, - ANESTHESIA Hx Anesthesia Reactions: No Meds Allergies/Adverse Reactions: Allergies Allergy/AdvReac Type Severity Reaction Status Date / Time shellfish derived Allergy ANAPHYLAXIS Verified 01/17/18 23:18 Seafood Allergy ANAPHYLAXIS Uncoded 01/17/18 23:18 - Medications Medications: Current Medications Acetaminophen (Tylenol 650 Mg Supp) 650 mg AK Q6H PRN PRN Reason: Fever >100.4 F Aspirin (Aspirin Chewable) 81 mg PO DAILY [facility] Last Admin: 01/19/18 09:09 Dose: 81 mg Calcium Acetate (Phoslo) 1,334 mg PO TIDCC [facility] Last Admin: 01/19/18 11:56 Dose: Not Given Heparin Sodium (Porcine) (Heparin) 5,000 units SC Q8 [facility] Last Admin: 01/19/18 05:26 Dose: 5,000 units Hydrocortisone Sodium Succinate (Solu-Cortef) 50 mg IV Q8H [facility] Last Admin: 01/19/18 08:05 Dose: 50 mg Norepinephrine Bitartrate 8 mg (/ Sodium Chloride) 258 mls @ 7.74 mls/hr IV .Q24H PRN; Protocol; 4 MCG/MIN PRN Reason: TITRATE PER MD ORDER Propofol (Diprivan) 1,000 mg in 100 mls @ 2.585 mls/hr IV .Q24H PRN; Protocol; 5 MCG/KG/MIN PRN Reason: TITRATE PER MD ORDER Last Titration: 01/19/18 09:39 Dose: 0 mcg/kg/min, 0 mls/hr Dobutamine HCl/Dextrose (Dobutamine/Dextrose 5% 500mg/250ml) 500 mg in 250 mls @ 6.464 mls/hr IV .Q24H DESTINI; 2.5 MCG/KG/MIN PRN Reason: Protocol Last Admin: 01/18/18 17:14 Dose: 2.5 mcg/kg/min, 6.464 mls/hr Cefepime HCl (Maxipime Iv 1 Gm Premix) 1 gm in 50 mls @ 100 mls/hr IVPB Q24H DESTINI PRN Reason: Protocol Last Admin: 06/26/18 09:07 Dose: 100 mls/hr Insulin Human Regular (Novolin R) 0 unit SC Q6H DESTINI PRN Reason: Protocol Last Admin: 01/19/18 11:58 Dose: 3 u Pantoprazole Sodium (Protonix Inj) 40 mg IVP DAILY [facility] Last Admin: 01/19/18 09:06 Dose: 40 mg Results - Vital Signs Recent Vital Signs: Last Vital Signs Temp 98.7 F 01/19/18 11:59 Pulse 102 H 01/19/18 11:59 Resp 22 01/19/18 11:59 BP 139/74 01/19/18 11:00 Pulse Ox 97 01/19/18 11:59 - Labs Result Diagrams: 01/19/18 06:32 01/19/18 06:20 Labs: Laboratory Results - last 24 hr 01/18/18 01/18/18 01/18/18 17:25 17:29 17:29 WBC 7.9 RBC 3.97 L Hgb 11.4 L Hct 34.8 L MCV 87.5 MCH 28.8 MCHC 32.9 L RDW 16.3 H Plt Count 144 MPV 10.2 Neut % (Auto) 91.6 H Lymph % (Auto) 4.1 L [place] % (Auto) 4.1 Eos % (Auto) 0.0 Baso % (Auto) 0.2 Neut # (Auto) 7.2 H Lymph # (Auto) 0.3 L [place] # (Auto) 0.3 Eos # (Auto) 0.0 Baso # (Auto) 0.0 Neutrophils % (Manual) 88 H Lymphocytes % (Manual) 6 L Monocytes % (Manual) 5 Basophils % (Manual) 1 Platelet Estimate Normal Hypochromasia (manual) Slight Poikilocytosis (manual Slight Anisocytosis (manual) Slight Ovalocytes Slight [place] Cells Slight Sodium 132 Potassium 5.6 H Chloride 93 L Carbon Dioxide 19 L Anion Gap 26 H BUN 66 H Creatinine 10.5 H* D Est GFR ( Amer) 6 Est GFR (Non-Af Amer) 5 POC Glucose (mg/dL) 176 H Random Glucose 178 H Lactic Acid Calcium 7.4 L Phosphorus 11.5 H Magnesium 1.8 Total Bilirubin 0.7 AST 228 H ALT 150 H Alkaline Phosphatase 72 Total Protein 6.4 Albumin 3.6 Globulin 2.7 Albumin/Globulin Ratio 1.3 Alpha Fetoprotein Random Vancomycin Hepatitis A IgM Ab Hep Bs Antigen Hep B Core IgM Ab Hepatitis C Antibody 01/18/18 01/18/18 01/18/18 17:29 17:29 17:29 WBC RBC Hgb Hct MCV MCH MCHC RDW Plt Count MPV Neut % (Auto) Lymph % (Auto) [place] % (Auto) Eos % (Auto) Baso % (Auto) Neut # (Auto) Lymph # (Auto) [place] # (Auto) Eos # (Auto) Baso # (Auto) Neutrophils % (Manual) Lymphocytes % (Manual) Monocytes % (Manual) Basophils % (Manual) Platelet Estimate Hypochromasia (manual) Poikilocytosis (manual Anisocytosis (manual) Ovalocytes [place] Cells Sodium Potassium Chloride Carbon Dioxide Anion Gap BUN Creatinine Est GFR ( Amer) Est GFR (Non-Af Amer) POC Glucose (mg/dL) Random Glucose Lactic Acid 1.8 Calcium Phosphorus Magnesium Total Bilirubin AST ALT Alkaline Phosphatase Total Protein Albumin Globulin Albumin/Globulin Ratio Alpha Fetoprotein Random Vancomycin < 5.0 Hepatitis A IgM Ab Negative Hep Bs Antigen Negative Hep B Core IgM Ab Negative Hepatitis C Antibody Negative 01/18/18 01/18/18 01/19/18 19:00 19:07 00:11 WBC RBC Hgb Hct MCV MCH MCHC RDW Plt Count MPV Neut % (Auto) Lymph % (Auto) [place] % (Auto) Eos % (Auto) Baso % (Auto) Neut # (Auto) Lymph # (Auto) [place] # (Auto) Eos # (Auto) Baso # (Auto) Neutrophils % (Manual) Lymphocytes % (Manual) Monocytes % (Manual) Basophils % (Manual) Platelet Estimate Hypochromasia (manual) Poikilocytosis (manual Anisocytosis (manual) Ovalocytes [place] Cells Sodium Potassium Chloride Carbon Dioxide Anion Gap BUN Creatinine Est GFR ( Amer) Est GFR (Non-Af Amer) POC Glucose (mg/dL) 182 H Random Glucose Lactic Acid Calcium Phosphorus Magnesium Total Bilirubin AST ALT Alkaline Phosphatase Total Protein Albumin Globulin Albumin/Globulin Ratio Alpha Fetoprotein 1.5 Random Vancomycin Hepatitis A IgM Ab Hep Bs Antigen Negative Hep B Core IgM Ab Hepatitis C Antibody 01/19/18 01/19/18 01/19/18 05:38 06:20 06:32 WBC 7.8 RBC 3.82 L Hgb 11.3 L Hct 33.3 L MCV 87.0 MCH 29.5 MCHC 33.9 RDW 16.2 H Plt Count 124 L D MPV 10.0 Neut % (Auto) 90.5 H Lymph % (Auto) 3.7 L [place] % (Auto) 5.8 Eos % (Auto) 0.0 Baso % (Auto) 0.0 Neut # (Auto) 7.1 H Lymph # (Auto) 0.3 L [place] # (Auto) 0.5 Eos # (Auto) 0.0 Baso # (Auto) 0.0 Neutrophils % (Manual) 92 H Lymphocytes % (Manual) 4 L Monocytes % (Manual) 4 Basophils % (Manual) Platelet Estimate Normal Hypochromasia (manual) Poikilocytosis (manual Anisocytosis (manual) Slight Ovalocytes [place] Cells Sodium 135 Potassium 4.7 Chloride 94 L Carbon Dioxide 23 Anion Gap 23 H BUN 47 H Creatinine 8.4 H* Est GFR ( Amer) 8 Est GFR (Non-Af Amer) 7 POC Glucose (mg/dL) 207 H Random Glucose 184 H Lactic Acid Calcium 8.3 L Phosphorus 10.5 H Magnesium 1.9 Total Bilirubin 0.6 AST 243 H ALT 143 H Alkaline Phosphatase 75 Total Protein 6.3 Albumin 3.4 L Globulin 2.9 Albumin/Globulin Ratio 1.2 Alpha Fetoprotein Random Vancomycin Hepatitis A IgM Ab Hep Bs Antigen Hep B Core IgM Ab Hepatitis C Antibody 01/19/18 06:38 WBC RBC Hgb Hct MCV MCH MCHC RDW Plt Count MPV Neut % (Auto) Lymph % (Auto) [place] % (Auto) Eos % (Auto) Baso % (Auto) Neut # (Auto) Lymph # (Auto) [place] # (Auto) Eos # (Auto) Baso # (Auto) Neutrophils % (Manual) Lymphocytes % (Manual) Monocytes % (Manual) Basophils % (Manual) Platelet Estimate Hypochromasia (manual) Poikilocytosis (manual Anisocytosis (manual) Ovalocytes [place] Cells Sodium Potassium Chloride Carbon Dioxide Anion Gap BUN Creatinine Est GFR ( Amer) Est GFR (Non-Af Amer) POC Glucose (mg/dL) Random Glucose Lactic Acid 1.0 Calcium Phosphorus Magnesium Total Bilirubin AST ALT Alkaline Phosphatase Total Protein Albumin Globulin Albumin/Globulin Ratio Alpha Fetoprotein Random Vancomycin Hepatitis A IgM Ab Hep Bs Antigen Hep B Core IgM Ab Hepatitis C Antibody
--- NOTE | 2018-01-19 14:37 | CP.PCM.CON ---
History of Present Illness - History of Present Illness History of Present Illness: Palliative consult requested by Doctor Job, for goals of care discussion. Patient is a 57 yo male admitted to [facility] post cardiac arrest, and resuscitation. Patient was intubated and placed on MV support. CXR was significant for left pleural effuson and ECHO for F of 25 - 30 %. It was reported that patient was not attending HD 3 X a week as ordered. he would go only once a week. After patient's condition was stabilized, POLST was found on patient;s record indicating DNR/DNI. Patient was transferred to [facility] for inpatient HD. PMH: ESRD with HD, HTN, DM, right foor 5 digits ampuatin, CAD, DM on insulin, infected Perm Cath with Pseudomonas, septic emboli Soc. Hx: single, lives at home, friend Geoffrey contact clerk, ,admits to occasional marijuana se, ETOH abuse X 40 years, sober X 7 years Fam. Hxc : denies Review of Systems - Review of Systems Systems not reviewed;Unavailable: Intubated All systems: reviewed and no additional remarkable complaints except Review of Systems: ROS obtained from nursing due intubation status. per nursing patient has been stable since the admission. CPAP trial today Past Patient History - Infectious Disease Hx of Infectious Diseases: None - Tetanus Immunizations Tetanus Immunization: Unknown - Past Medical History & Family History Past Medical History?: Yes - Past Social History Smoking Status: Current Some Days Smoker - CARDIAC Hx Cardiac Disorders: Yes (CAD, [place] x 3, CABG x 3) Hx Congestive Heart Failure: Yes Hx Hypertension: Yes - PULMONARY Hx Respiratory Disorders: Yes Other/Comment: PULMONARY EDEMA - NEUROLOGICAL Hx Neurological Disorder: Yes (NEUROPATHY) HX Cerebrovascular Accident: Yes Hx Dizziness: Yes (SYNCOPE) - HEENT Hx HEENT Problems: No (CONTACT LENSES) - RENAL Hx Chronic Kidney Disease: Yes Hx Dialysis: Yes Type of Dialysis Access: RIGHT AVF Date of Last Dialysis Treatment: 01/14/18 Hx Renal Failure: Yes - ENDOCRINE/METABOLIC Hx Endocrine Disorders: Yes Hx Diabetes Mellitus Type 2: Yes - HEMATOLOGICAL/ONCOLOGICAL Hx Blood Disorders: No - INTEGUMENTARY Hx Dermatological Problems: Yes Other/Comment: righty lower ext rash, pt stated "I have had it about 20 yrs" - MUSCULOSKELETAL/RHEUMATOLOGICAL Hx Falls: No - GASTROINTESTINAL Hx Gastrointestinal Disorders: Yes (GASTROPARESIS) - GENITOURINARY/GYNECOLOGICAL Hx Genitourinary Disorders: Yes (URINARY RETENTION-HAGEN) Hx Urinary Tract Infection: Yes - PSYCHIATRIC Hx Substance Use: Yes - SURGICAL HISTORY Hx Cardiac Catheterization: Yes Hx Cholecystectomy: Yes Hx Coronary Stent: Yes (3) Other/Comment: shunt rt arm,L HIP SX,L KNEE SX, - ANESTHESIA Hx Anesthesia Reactions: No Meds Allergies/Adverse Reactions: Allergies Allergy/AdvReac Type Severity Reaction Status Date / Time shellfish derived Allergy ANAPHYLAXIS Verified 01/17/18 23:18 Seafood Allergy ANAPHYLAXIS Uncoded 01/17/18 23:18 - Medications Medications: Current Medications Acetaminophen (Tylenol 650 Mg Supp) 650 mg MO Q6H PRN PRN Reason: Fever >100.4 F Aspirin (Aspirin Chewable) 81 mg PO DAILY [facility] Last Admin: 01/19/18 09:09 Dose: 81 mg Calcium Acetate (Phoslo) 1,334 mg PO TIDCC [facility] Last Admin: 01/19/18 11:56 Dose: Not Given Heparin Sodium (Porcine) (Heparin) 5,000 units SC Q8 [facility] Last Admin: 01/19/18 05:26 Dose: 5,000 units Hydrocortisone Sodium Succinate (Solu-Cortef) 50 mg IV Q8H [facility] Last Admin: 01/19/18 08:05 Dose: 50 mg Norepinephrine Bitartrate 8 mg (/ Sodium Chloride) 258 mls @ 7.74 mls/hr IV .Q24H PRN; Protocol; 4 MCG/MIN PRN Reason: TITRATE PER MD ORDER Propofol (Diprivan) 1,000 mg in 100 mls @ 2.585 mls/hr IV .Q24H PRN; Protocol; 5 MCG/KG/MIN PRN Reason: TITRATE PER MD ORDER Last Titration: 01/19/18 09:39 Dose: 0 mcg/kg/min, 0 mls/hr Dobutamine HCl/Dextrose (Dobutamine/Dextrose 5% 500mg/250ml) 500 mg in 250 mls @ 6.464 mls/hr IV .Q24H DESTINI; 2.5 MCG/KG/MIN PRN Reason: Protocol Last Admin: 01/18/18 17:14 Dose: 2.5 mcg/kg/min, 6.464 mls/hr Cefepime HCl (Maxipime Iv 1 Gm Premix) 1 gm in 50 mls @ 100 mls/hr IVPB Q24H DESTINI PRN Reason: Protocol Last Admin: 01/19/18 09:07 Dose: 100 mls/hr Insulin Human Regular (Novolin R) 0 unit SC Q6H DESTINI PRN Reason: Protocol Last Admin: 01/19/18 11:58 Dose: 3 u Pantoprazole Sodium (Protonix Inj) 40 mg IVP DAILY [facility] Last Admin: 01/19/18 09:06 Dose: 40 mg Physical Exam - Constitutional Appears: Chronically Ill - Head Exam Head Exam: ATRAUMATIC, NORMAL INSPECTION, NORMOCEPHALIC - Eye Exam Eye Exam: EOMI, Normal appearance Pupil Exam: NORMAL ACCOMODATION, PERRL - ENT Exam Additional comments: Intubated on MV support - Neck Exam Neck exam: Positive for: Normal Inspection - Respiratory Exam Respiratory Exam: Decreased Breath Sounds Additional comments: On MV support - Cardiovascular Exam Cardiovascular Exam: Tachycardia - GI/Abdominal Exam GI & Abdominal Exam: Normal Bowel Sounds, Soft - Rectal Exam Rectal Exam: Deferred - Exam Exam: NORMAL INSPECTION - Extremities Exam Extremities exam: Positive for: normal inspection Additional comments: right foot 5 digits amputated - Back Exam Back exam: NORMAL INSPECTION - Neurological Exam Neurological exam: Alert, Oriented x3 - Psychiatric Exam Psychiatric exam: Normal Affect, Normal Mood - Skin Skin Exam: Normal Color Results - Vital Signs Recent Vital Signs: Last Vital Signs Temp 99.1 F 01/19/18 13:45 Pulse 101 H 01/19/18 13:45 Resp 21 01/19/18 13:45 BP 134/64 01/19/18 14:15 Pulse Ox 97 01/19/18 13:45 - Labs Result Diagrams: 01/19/18 06:32 01/19/18 06:20 Labs: Laboratory Results - last 24 hr 01/18/18 01/18/18 01/18/18 17:25 17:29 17:29 WBC 7.9 RBC 3.97 L Hgb 11.4 L Hct 34.8 L MCV 87.5 MCH 28.8 MCHC 32.9 L RDW 16.3 H Plt Count 144 MPV 10.2 Neut % (Auto) 91.6 H Lymph % (Auto) 4.1 L Falls % (Auto) 4.1 Eos % (Auto) 0.0 Baso % (Auto) 0.2 Neut # (Auto) 7.2 H Lymph # (Auto) 0.3 L Falls # (Auto) 0.3 Eos # (Auto) 0.0 Baso # (Auto) 0.0 Neutrophils % (Manual) 88 H Lymphocytes % (Manual) 6 L Monocytes % (Manual) 5 Basophils % (Manual) 1 Platelet Estimate Normal Hypochromasia (manual) Slight Poikilocytosis (manual Slight Anisocytosis (manual) Slight Ovalocytes Slight [place] Cells Slight Sodium 132 Potassium 5.6 H Chloride 93 L Carbon Dioxide 19 L Anion Gap 26 H BUN 66 H Creatinine 10.5 H* D Est GFR ( Amer) 6 Est GFR (Non-Af Amer) 5 POC Glucose (mg/dL) 176 H Random Glucose 178 H Lactic Acid Calcium 7.4 L Phosphorus 11.5 H Magnesium 1.8 Total Bilirubin 0.7 AST 228 H ALT 150 H Alkaline Phosphatase 72 Total Protein 6.4 Albumin 3.6 Globulin 2.7 Albumin/Globulin Ratio 1.3 Alpha Fetoprotein Random Vancomycin Hepatitis A IgM Ab Hep Bs Antigen Hep B Core IgM Ab Hepatitis C Antibody 01/18/18 01/18/18 01/18/18 17:29 17:29 17:29 WBC RBC Hgb Hct MCV MCH MCHC RDW Plt Count MPV Neut % (Auto) Lymph % (Auto) Falls % (Auto) Eos % (Auto) Baso % (Auto) Neut # (Auto) Lymph # (Auto) [place] # (Auto) Eos # (Auto) Baso # (Auto) Neutrophils % (Manual) Lymphocytes % (Manual) Monocytes % (Manual) Basophils % (Manual) Platelet Estimate Hypochromasia (manual) Poikilocytosis (manual Anisocytosis (manual) Ovalocytes [place] Cells Sodium Potassium Chloride Carbon Dioxide Anion Gap BUN Creatinine Est GFR ( Amer) Est GFR (Non-Af Amer) POC Glucose (mg/dL) Random Glucose Lactic Acid 1.8 Calcium Phosphorus Magnesium Total Bilirubin AST ALT Alkaline Phosphatase Total Protein Albumin Globulin Albumin/Globulin Ratio Alpha Fetoprotein Random Vancomycin < 5.0 Hepatitis A IgM Ab Negative Hep Bs Antigen Negative Hep B Core IgM Ab Negative Hepatitis C Antibody Negative 01/18/18 01/18/18 01/19/18 19:00 19:07 00:11 WBC RBC Hgb Hct MCV MCH MCHC RDW Plt Count MPV Neut % (Auto) Lymph % (Auto) Falls % (Auto) Eos % (Auto) Baso % (Auto) Neut # (Auto) Lymph # (Auto) [place] # (Auto) Eos # (Auto) Baso # (Auto) Neutrophils % (Manual) Lymphocytes % (Manual) Monocytes % (Manual) Basophils % (Manual) Platelet Estimate Hypochromasia (manual) Poikilocytosis (manual Anisocytosis (manual) Ovalocytes [place] Cells Sodium Potassium Chloride Carbon Dioxide Anion Gap BUN Creatinine Est GFR ( Amer) Est GFR (Non-Af Amer) POC Glucose (mg/dL) 182 H Random Glucose Lactic Acid Calcium Phosphorus Magnesium Total Bilirubin AST ALT Alkaline Phosphatase Total Protein Albumin Globulin Albumin/Globulin Ratio Alpha Fetoprotein 1.5 Random Vancomycin Hepatitis A IgM Ab Hep Bs Antigen Negative Hep B Core IgM Ab Hepatitis C Antibody 01/19/18 01/19/18 01/19/18 05:38 06:20 06:32 WBC 7.8 RBC 3.82 L Hgb 11.3 L Hct 33.3 L MCV 87.0 MCH 29.5 MCHC 33.9 RDW 16.2 H Plt Count 124 L D MPV 10.0 Neut % (Auto) 90.5 H Lymph % (Auto) 3.7 L Falls % (Auto) 5.8 Eos % (Auto) 0.0 Baso % (Auto) 0.0 Neut # (Auto) 7.1 H Lymph # (Auto) 0.3 L Falls # (Auto) 0.5 Eos # (Auto) 0.0 Baso # (Auto) 0.0 Neutrophils % (Manual) 92 H Lymphocytes % (Manual) 4 L Monocytes % (Manual) 4 Basophils % (Manual) Platelet Estimate Normal Hypochromasia (manual) Poikilocytosis (manual Anisocytosis (manual) Slight Ovalocytes [place] Cells Sodium 135 Potassium 4.7 Chloride 94 L Carbon Dioxide 23 Anion Gap 23 H BUN 47 H Creatinine 8.4 H* Est GFR ( Amer) 8 Est GFR (Non-Af Amer) 7 POC Glucose (mg/dL) 207 H Random Glucose 184 H Lactic Acid Calcium 8.3 L Phosphorus 10.5 H Magnesium 1.9 Total Bilirubin 0.6 AST 243 H ALT 143 H Alkaline Phosphatase 75 Total Protein 6.3 Albumin 3.4 L Globulin 2.9 Albumin/Globulin Ratio 1.2 Alpha Fetoprotein Random Vancomycin Hepatitis A IgM Ab Hep Bs Antigen Hep B Core IgM Ab Hepatitis C Antibody 01/19/18 06:38 WBC RBC Hgb Hct MCV MCH MCHC RDW Plt Count MPV Neut % (Auto) Lymph % (Auto) Falls % (Auto) Eos % (Auto) Baso % (Auto) Neut # (Auto) Lymph # (Auto) Falls # (Auto) Eos # (Auto) Baso # (Auto) Neutrophils % (Manual) Lymphocytes % (Manual) Monocytes % (Manual) Basophils % (Manual) Platelet Estimate Hypochromasia (manual) Poikilocytosis (manual Anisocytosis (manual) Ovalocytes [place] Cells Sodium Potassium Chloride Carbon Dioxide Anion Gap BUN Creatinine Est GFR ( Amer) Est GFR (Non-Af Amer) POC Glucose (mg/dL) Random Glucose Lactic Acid 1.0 Calcium Phosphorus Magnesium Total Bilirubin AST ALT Alkaline Phosphatase Total Protein Albumin Globulin Albumin/Globulin Ratio Alpha Fetoprotein Random Vancomycin Hepatitis A IgM Ab Hep Bs Antigen Hep B Core IgM Ab Hepatitis C Antibody Assessment & Plan - Assessment and Plan (Free Text) Assessment: Palliative consult DNR/DNI, POLST on chart I reviewed medical records, all diagnostic studies, examined and interviewed patient in the bed. Patient is alert, fallows commends, fallows conversation, unable to speak due to ET tube. Communicates by facial expressions and blinking the eyes. Patient knew he was at [facility]. Patient suggested he wanted the ET tube out. I discussed with patient his current condition. I offered my concerns hat he may get in respiratory distress after extubation and he may need to be reintubated. Patent was very categorical against [facility]. I reviewed his existing POLST on chart. . Patent wanted his wishes to be fallowed as stated, DNR/DNI. Patient extubated later today, around 11 am . Stable so far. BP 130/76, HR 101. Levophed IV drip on. Patient is S/P TVR via right groin at [facility]. Help Desk Technician 8.4, last HD was last night before transfer from [place]. Doctor Wilson called on consult here. . 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
[2018-01-19 16:33] LABS: CK-MB 50.4 ng/mL (0.0-3.38)
[2018-01-19] MEDS: DOBUTamine 500mg/250ml D5W 500 MG/250 ML BAG IV SCH (17:54)
--- NOTE | 2018-01-19 23:55 | CP.PCM.CON ---
Past Patient History - Infectious Disease Hx of Infectious Diseases: None - Tetanus Immunizations Tetanus Immunization: Unknown - Past Medical History & Family History Past Medical History?: Yes - Past Social History Smoking Status: Current Some Days Smoker - CARDIAC Hx Cardiac Disorders: Yes (CAD, [place] x 3, CABG x 3) Hx Congestive Heart Failure: Yes Hx Hypertension: Yes - PULMONARY Hx Respiratory Disorders: Yes Other/Comment: PULMONARY EDEMA - NEUROLOGICAL Hx Neurological Disorder: Yes (NEUROPATHY) HX Cerebrovascular Accident: Yes Hx Dizziness: Yes (SYNCOPE) - HEENT Hx HEENT Problems: No (CONTACT LENSES) - RENAL Hx Chronic Kidney Disease: Yes Hx Dialysis: Yes Type of Dialysis Access: RIGHT AVF Date of Last Dialysis Treatment: 01/14/18 Hx Renal Failure: Yes - ENDOCRINE/METABOLIC Hx Endocrine Disorders: Yes Hx Diabetes Mellitus Type 2: Yes - HEMATOLOGICAL/ONCOLOGICAL Hx Blood Disorders: No - INTEGUMENTARY Hx Dermatological Problems: Yes Other/Comment: righty lower ext rash, pt stated "I have had it about 20 yrs" - MUSCULOSKELETAL/RHEUMATOLOGICAL Hx Falls: No - GASTROINTESTINAL Hx Gastrointestinal Disorders: Yes (GASTROPARESIS) - GENITOURINARY/GYNECOLOGICAL Hx Genitourinary Disorders: Yes (URINARY RETENTION-HAGEN) Hx Urinary Tract Infection: Yes - PSYCHIATRIC Hx Substance Use: Yes - SURGICAL HISTORY Hx Cardiac Catheterization: Yes Hx Cholecystectomy: Yes Hx Coronary Stent: Yes (3) Other/Comment: shunt rt arm,L HIP SX,L KNEE SX, - ANESTHESIA Hx Anesthesia Reactions: No Meds Allergies/Adverse Reactions: Allergies Allergy/AdvReac Type Severity Reaction Status Date / Time shellfish derived Allergy ANAPHYLAXIS Verified 01/17/18 23:18 Seafood Allergy ANAPHYLAXIS Uncoded 01/17/18 23:18 - Medications Medications: Current Medications Acetaminophen (Tylenol 650 Mg Supp) 650 mg DC Q6H PRN PRN Reason: Fever >100.4 F Aspirin (Aspirin Chewable) 81 mg PO DAILY [facility] Last Admin: 01/19/18 09:09 Dose: 81 mg Calcium Acetate (Phoslo) 1,334 mg PO TIDCC [facility] Last Admin: 01/19/18 17:49 Dose: 1,334 mg Heparin Sodium (Porcine) (Heparin) 5,000 units SC Q8 [facility] Last Admin: 01/19/18 21:26 Dose: 5,000 units Hydrocortisone Sodium Succinate (Solu-Cortef) 50 mg IV Q8H [facility] Last Admin: 01/19/18 17:49 Dose: 50 mg Norepinephrine Bitartrate 8 mg (/ Sodium Chloride) 258 mls @ 7.74 mls/hr IV .Q24H PRN; Protocol; 4 MCG/MIN PRN Reason: TITRATE PER MD ORDER Propofol (Diprivan) 1,000 mg in 100 mls @ 2.585 mls/hr IV .Q24H PRN; Protocol; 5 MCG/KG/MIN PRN Reason: TITRATE PER MD ORDER Last Titration: 01/19/18 09:39 Dose: 0 mcg/kg/min, 0 mls/hr Dobutamine HCl/Dextrose (Dobutamine/Dextrose 5% 500mg/250ml) 500 mg in 250 mls @ 6.464 mls/hr IV .Q24H DESTINI; 2.5 MCG/KG/MIN PRN Reason: Protocol Last Admin: 01/19/18 17:54 Dose: 2.5 mcg/kg/min, 6.464 mls/hr Cefepime HCl (Maxipime Iv 1 Gm Premix) 1 gm in 50 mls @ 100 mls/hr IVPB Q24H DESTINI PRN Reason: Protocol Last Admin: 01/19/18 09:07 Dose: 100 mls/hr Insulin Human Regular (Novolin R) 0 unit SC ACHS DESTINI PRN Reason: Protocol Last Admin: 01/19/18 21:26 Dose: 3 u Pantoprazole Sodium (Protonix Inj) 40 mg IVP DAILY [facility] Last Admin: 01/19/18 09:06 Dose: 40 mg Results - Vital Signs Recent Vital Signs: Last Vital Signs Temp 99.1 F 01/19/18 20:00 Pulse 104 H 01/19/18 19:00 Resp 24 01/19/18 19:00 BP 124/63 01/19/18 19:00 Pulse Ox 95 01/19/18 19:00 - Labs Result Diagrams: 01/19/18 06:32 01/19/18 06:20 Labs: Laboratory Results - last 24 hr 01/19/18 01/19/18 01/19/18 00:11 05:38 06:20 WBC RBC Hgb Hct MCV MCH MCHC RDW Plt Count MPV Neut % (Auto) Lymph % (Auto) [place] % (Auto) Eos % (Auto) Baso % (Auto) Neut # (Auto) Lymph # (Auto) [place] # (Auto) Eos # (Auto) Baso # (Auto) Neutrophils % (Manual) Lymphocytes % (Manual) Monocytes % (Manual) Platelet Estimate Anisocytosis (manual) Sodium 135 Potassium 4.7 Chloride 94 L Carbon Dioxide 23 Anion Gap 23 H BUN 47 H Creatinine 8.4 H* Est GFR ( Amer) 8 Est GFR (Non-Af Amer) 7 POC Glucose (mg/dL) 182 H 207 H Random Glucose 184 H Lactic Acid Calcium 8.3 L Phosphorus 10.5 H Magnesium 1.9 Total Bilirubin 0.6 AST 243 H ALT 143 H Alkaline Phosphatase 75 Total Creatine Kinase CK-MB (Mass) Troponin I Total Protein 6.3 Albumin 3.4 L Globulin 2.9 Albumin/Globulin Ratio 1.2 Procalcitonin 01/19/18 01/19/18 01/19/18 06:32 06:38 11:30 WBC 7.8 RBC 3.82 L Hgb 11.3 L Hct 33.3 L MCV 87.0 MCH 29.5 MCHC 33.9 RDW 16.2 H Plt Count 124 L D MPV 10.0 Neut % (Auto) 90.5 H Lymph % (Auto) 3.7 L [place] % (Auto) 5.8 Eos % (Auto) 0.0 Baso % (Auto) 0.0 Neut # (Auto) 7.1 H Lymph # (Auto) 0.3 L [place] # (Auto) 0.5 Eos # (Auto) 0.0 Baso # (Auto) 0.0 Neutrophils % (Manual) 92 H Lymphocytes % (Manual) 4 L Monocytes % (Manual) 4 Platelet Estimate Normal Anisocytosis (manual) Slight Sodium Potassium Chloride Carbon Dioxide Anion Gap BUN Creatinine Est GFR ( Amer) Est GFR (Non-Af Amer) POC Glucose (mg/dL) 275 H Random Glucose Lactic Acid 1.0 Calcium Phosphorus Magnesium Total Bilirubin AST ALT Alkaline Phosphatase Total Creatine Kinase CK-MB (Mass) Troponin I Total Protein Albumin Globulin Albumin/Globulin Ratio Procalcitonin 01/19/18 01/19/18 01/19/18 14:30 15:54 16:22 WBC RBC Hgb Hct MCV MCH MCHC RDW Plt Count MPV Neut % (Auto) Lymph % (Auto) [place] % (Auto) Eos % (Auto) Baso % (Auto) Neut # (Auto) Lymph # (Auto) [place] # (Auto) Eos # (Auto) Baso # (Auto) Neutrophils % (Manual) Lymphocytes % (Manual) Monocytes % (Manual) Platelet Estimate Anisocytosis (manual) Sodium Potassium Chloride Carbon Dioxide Anion Gap BUN Creatinine Est GFR ( Amer) Est GFR (Non-Af Amer) POC Glucose (mg/dL) 142 H Random Glucose Lactic Acid Calcium Phosphorus Magnesium Total Bilirubin AST ALT Alkaline Phosphatase Total Creatine Kinase 4741 H CK-MB (Mass) 50.4 H Troponin I 173.0000 H* Total Protein Albumin Globulin Albumin/Globulin Ratio Procalcitonin 23.35 H 01/19/18 21:20 WBC RBC Hgb Hct MCV MCH MCHC RDW Plt Count MPV Neut % (Auto) Lymph % (Auto) [place] % (Auto) Eos % (Auto) Baso % (Auto) Neut # (Auto) Lymph # (Auto) [place] # (Auto) Eos # (Auto) Baso # (Auto) Neutrophils % (Manual) Lymphocytes % (Manual) Monocytes % (Manual) Platelet Estimate Anisocytosis (manual) Sodium Potassium Chloride Carbon Dioxide Anion Gap BUN Creatinine Est GFR ( Amer) Est GFR (Non-Af Amer) POC Glucose (mg/dL) 256 H Random Glucose Lactic Acid Calcium Phosphorus Magnesium Total Bilirubin AST ALT Alkaline Phosphatase Total Creatine Kinase CK-MB (Mass) Troponin I Total Protein Albumin Globulin Albumin/Globulin Ratio Procalcitonin
[2018-01-20] MEDS: (Novolin R) Insulin Human Regular 100 units/ml vial SC SCH ×4 (07:36→22:00)
[2018-01-20 07:46] LABS: ALB/GLOB RATIO 1.3 (1.0-2.1); ALBUMIN 3.7 g/dL (3.5-5.0); CALCIUM 8.1 mg/dl (8.6-10.4)
[2018-01-20 08:04] LABS: BASO % 0.2 % (0.0-2.0); HEMOGLOBIN 11.8 g/dL (12.0-18.0); LYMPH # 0.5 K/uL (1.0-4.3); MEAN CELL VOLUME 88.6 fL (80.0-94.0); MEAN CORPUSCULAR HEMOGLOBIN 29.4 pg (27.0-31.0); MEAN CORPUSCULAR HGB CONC 33.2 g/dL (33.0-37.0); MEAN PLATELET VOLUME 11.4 fL (7.2-11.7); MONO # 0.6 K/uL (0.0-0.8); MONO % 7.3 % (0.0-10.0); NEUT # 6.6 K/uL (1.8-7.0); NEUT % 86.5 % (50.0-75.0); PLATELET COUNT 170 K/uL (130-400); RED CELL DISTRIBUTION WIDTH 16.5 % (11.5-14.5); WHITE BLOOD COUNT 7.7 K/uL (4.8-10.8)
[2018-01-20] MEDS: Cefepime IV 1 gm in Dextrose 1 GM/50 ML BAG IVPB SCH (09:33)
[2018-01-20] MEDS ORDERED: Vancomycin 1 gm/NS 200 ml 1 GM/200 ML BAG IVPB SCH (10:00)
[2018-01-20 10:08] LABS: LYMPHOCYTE 3 % (20-40); MONOCYTE 8 % (0-10); NEUTROPHIL 89 % (50-75); PLATELET ESTIMATE NORMAL (NORMAL); TOTAL CELLS COUNTED 100
[2018-01-20 10:09] LABS: ANISOCYTOSIS SLIGHT; HYPOCHROMIC SLIGHT; POIKILOCYTOSIS SLIGHT
--- NOTE | 2018-01-20 10:20 | CP.CCUPN ---
<Annel Fraser - Last Filed: 01/20/18 10:09> CCU Subjective - Physician Review Subjective (Free Text): Patient seen and examined at bedside. Patient is extubated. He spoke with palliative care, if he decompensates he does not want to be reintubated. POLST DNR/DNI. Patient reports some lower back pain, otherwise, no complaints. CCU Objective - Vital Signs / Intake & Output Vital Signs (Last 4 hours): Vital Signs Temp Pulse Resp BP Pulse Ox 01/20/18 09:00 93 H 18 153/87 H 94 L 01/20/18 08:00 98.6 F 108 H 22 168/89 H 01/20/18 07:00 99 H 18 171/88 H 94 L Intake and Output (Last 8hrs): Intake & Output 01/19/18 01/20/18 01/20/18 22:59 06:59 14:59 Intake Total 574.4 104.4 253.6 Output Total 60 50 Balance 514.4 54.4 253.6 Intake: IV 200 Intake, IV Amount 54.4 54.4 13.6 Left Distal Port Femoral 54.4 54.4 13.6 Oral 320 50 240 Output: Urine 60 50 Urethral (Harris) 60 50 Other: # Bowel Movements 1 - Physical Exam Head: Positive for: Atraumatic, Normocephalic Pupils: Positive for: PERRL Extroacular Muscles: Positive for: EOMI Conjunctiva: Positive for: Normal Mouth: Positive for: Dry Respiratory/Chest: Positive for: Clear to Auscultation Cardiovascular: Positive for: Regular Rate and Rhythm Abdomen: Positive for: Normal Bowel Sounds - Medications Active Medications: Active Medications Generic Name Dose Route Start Last Admin Trade Name Freq PRN Reason Stop Dose Admin Acetaminophen 650 mg 01/18/18 16:37 Tylenol 650 Mg Supp [place] Q6H PRN Fever >100.4 F Acetaminophen 650 mg 01/20/18 10:06 Tylenol 325mg Tab PO Q6 PRN Pain, Mild (1-3) Aspirin 81 mg 01/19/18 10:00 01/20/18 09:33 Aspirin Chewable PO 81 mg DAILY DESTINI Administration Calcium Acetate 1,334 mg 01/19/18 09:45 01/20/18 07:38 Phoslo PO 1,334 mg TIDCC DESTINI Administration Heparin Sodium (Porcine) 5,000 units 06/25/18 22:00 01/20/18 05:28 Heparin SC 5,000 units Q8 DESTINI Administration Hydrocortisone Sodium Succinate 50 mg 01/18/18 17:00 01/20/18 09:33 Solu-Cortef IV 50 mg Q8H DESTINI Administration Cefepime HCl 1 gm in 50 mls @ 100 mls/hr 01/19/18 10:00 01/20/18 09:33 Maxipime Iv 1 Gm Premix IVPB 100 mls/hr Q24H DESTINI Administration Protocol Insulin Human Regular 0 unit 01/19/18 16:30 01/20/18 07:36 Novolin R SC 4 u ACHS DESTINI Administration Protocol Pantoprazole Sodium 40 mg 01/19/18 10:00 01/20/18 09:34 Protonix Inj IVP 40 mg DAILY DESTINI Administration - Patient Studies Lab Studies: Microbiology Studies 01/18/18 17:06 MRSA Culture (Admit) - Final Naris MRSA NOT DETECTED Lab Studies 01/20/18 01/20/18 01/20/18 Range/Units 07:13 07:13 07:12 WBC 7.7 (4.8-10.8) K/uL RBC 4.00 L (4.40-5.90) Mil/uL Hgb 11.8 L (12.0-18.0) g/dL Hct 35.5 (35.0-51.0) % MCV 88.6 (80.0-94.0) fL MCH 29.4 (27.0-31.0) pg MCHC 33.2 (33.0-37.0) g/dL RDW 16.5 H (11.5-14.5) % Plt Count 170 (130-400) K/uL MPV 11.4 (7.2-11.7) fL Neut % (Auto) 86.5 H (50.0-75.0) % Lymph % (Auto) 6.0 L (20.0-40.0) % [place] % (Auto) 7.3 (0.0-10.0) % Eos % (Auto) 0.0 (0.0-4.0) % Baso % (Auto) 0.2 (0.0-2.0) % Neut # (Auto) 6.6 (1.8-7.0) K/uL Lymph # (Auto) 0.5 L (1.0-4.3) K/uL [place] # (Auto) 0.6 (0.0-0.8) K/uL Eos # (Auto) 0.0 (0.0-0.7) K/uL Baso # (Auto) 0.0 (0.0-0.2) K/uL Neutrophils % (Manual) 89 H (50-75) % Lymphocytes % (Manual) 3 L (20-40) % Monocytes % (Manual) 8 (0-10) % Platelet Estimate Normal (NORMAL) Hypochromasia (manual) Slight Poikilocytosis (manual Slight Anisocytosis (manual) Slight Sodium 136 (132-148) mmol/L Potassium 4.4 (3.6-5.2) mmol/L Chloride 93 L (98-107) mmol/L Carbon Dioxide 24 (22-30) mmol/L Anion Gap 22 H (10-20) BUN 40 H (9-20) mg/dL Creatinine 6.6 H (0.8-1.5) mg/dL Est GFR ( Amer) 11 Est GFR (Non-Af Amer) 9 POC Glucose (mg/dL) 340 H (65-110) mg/dL Random Glucose 312 H (75-110) mg/dL Calcium 8.1 L (8.6-10.4) mg/dl Phosphorus 7.5 H (2.5-4.5) mg/dL Magnesium 2.1 (1.6-2.3) mg/dL Total Bilirubin 0.7 (0.2-1.3) mg/dL AST 116 H D (17-59) U/L ALT 126 H (21-72) U/L Alkaline Phosphatase 85 (38-126) U/L Total Creatine Kinase (55-170) U/L CK-MB (Mass) (0.0-3.38) ng/mL Troponin I (0.00-0.120) ng/mL Total Protein 6.6 (6.3-8.3) g/dL Albumin 3.7 (3.5-5.0) g/dL Globulin 2.9 (2.2-3.9) gm/dL Albumin/Globulin Ratio 1.3 (1.0-2.1) Procalcitonin (0.19-0.49) NG/ML 01/19/18 01/19/18 01/19/18 Range/Units 21:20 16:22 15:54 WBC (4.8-10.8) K/uL RBC (4.40-5.90) Mil/uL Hgb (12.0-18.0) g/dL Hct (35.0-51.0) % MCV (80.0-94.0) fL MCH (27.0-31.0) pg MCHC (33.0-37.0) g/dL RDW (11.5-14.5) % Plt Count (130-400) K/uL MPV (7.2-11.7) fL Neut % (Auto) (50.0-75.0) % Lymph % (Auto) (20.0-40.0) % [place] % (Auto) (0.0-10.0) % Eos % (Auto) (0.0-4.0) % Baso % (Auto) (0.0-2.0) % Neut # (Auto) (1.8-7.0) K/uL Lymph # (Auto) (1.0-4.3) K/uL [place] # (Auto) (0.0-0.8) K/uL Eos # (Auto) (0.0-0.7) K/uL Baso # (Auto) (0.0-0.2) K/uL Neutrophils % (Manual) (50-75) % Lymphocytes % (Manual) (20-40) % Monocytes % (Manual) (0-10) % Platelet Estimate (NORMAL) Hypochromasia (manual) Poikilocytosis (manual Anisocytosis (manual) Sodium (132-148) mmol/L Potassium (3.6-5.2) mmol/L Chloride (98-107) mmol/L Carbon Dioxide (22-30) mmol/L Anion Gap (10-20) BUN (9-20) mg/dL Creatinine (0.8-1.5) mg/dL Est GFR ( Amer) Est GFR (Non-Af Amer) POC Glucose (mg/dL) 256 H 142 H (65-110) mg/dL Random Glucose (75-110) mg/dL Calcium (8.6-10.4) mg/dl Phosphorus (2.5-4.5) mg/dL Magnesium (1.6-2.3) mg/dL Total Bilirubin (0.2-1.3) mg/dL AST (17-59) U/L ALT (21-72) U/L Alkaline Phosphatase (38-126) U/L Total Creatine Kinase 4741 H (55-170) U/L CK-MB (Mass) 50.4 H (0.0-3.38) ng/mL Troponin I 173.0000 H* (0.00-0.120) ng/mL Total Protein (6.3-8.3) g/dL Albumin (3.5-5.0) g/dL Globulin (2.2-3.9) gm/dL Albumin/Globulin Ratio (1.0-2.1) Procalcitonin (0.19-0.49) NG/ML 01/19/18 01/19/18 Range/Units 14:30 11:30 WBC (4.8-10.8) K/uL RBC (4.40-5.90) Mil/uL Hgb (12.0-18.0) g/dL Hct (35.0-51.0) % MCV (80.0-94.0) fL MCH (27.0-31.0) pg MCHC (33.0-37.0) g/dL RDW (11.5-14.5) % Plt Count (130-400) K/uL MPV (7.2-11.7) fL Neut % (Auto) (50.0-75.0) % Lymph % (Auto) (20.0-40.0) % [place] % (Auto) (0.0-10.0) % Eos % (Auto) (0.0-4.0) % Baso % (Auto) (0.0-2.0) % Neut # (Auto) (1.8-7.0) K/uL Lymph # (Auto) (1.0-4.3) K/uL [place] # (Auto) (0.0-0.8) K/uL Eos # (Auto) (0.0-0.7) K/uL Baso # (Auto) (0.0-0.2) K/uL Neutrophils % (Manual) (50-75) % Lymphocytes % (Manual) (20-40) % Monocytes % (Manual) (0-10) % Platelet Estimate (NORMAL) Hypochromasia (manual) Poikilocytosis (manual Anisocytosis (manual) Sodium (132-148) mmol/L Potassium (3.6-5.2) mmol/L Chloride (98-107) mmol/L Carbon Dioxide (22-30) mmol/L Anion Gap (10-20) BUN (9-20) mg/dL Creatinine (0.8-1.5) mg/dL Est GFR ( Amer) Est GFR (Non-Af Amer) POC Glucose (mg/dL) 275 H (65-110) mg/dL Random Glucose (75-110) mg/dL Calcium (8.6-10.4) mg/dl Phosphorus (2.5-4.5) mg/dL Magnesium (1.6-2.3) mg/dL Total Bilirubin (0.2-1.3) mg/dL AST (17-59) U/L ALT (21-72) U/L Alkaline Phosphatase (38-126) U/L Total Creatine Kinase (55-170) U/L CK-MB (Mass) (0.0-3.38) ng/mL Troponin I (0.00-0.120) ng/mL Total Protein (6.3-8.3) g/dL Albumin (3.5-5.0) g/dL Globulin (2.2-3.9) gm/dL Albumin/Globulin Ratio (1.0-2.1) Procalcitonin 23.35 H (0.19-0.49) NG/ML Laboratory Results - last 24 hr 01/19/18 01/19/18 01/19/18 11:30 14:30 15:54 WBC RBC Hgb Hct MCV MCH MCHC RDW Plt Count MPV Neut % (Auto) Lymph % (Auto) [place] % (Auto) Eos % (Auto) Baso % (Auto) Neut # (Auto) Lymph # (Auto) [place] # (Auto) Eos # (Auto) Baso # (Auto) Neutrophils % (Manual) Lymphocytes % (Manual) Monocytes % (Manual) Platelet Estimate Hypochromasia (manual) Poikilocytosis (manual Anisocytosis (manual) Sodium Potassium Chloride Carbon Dioxide Anion Gap BUN Creatinine Est GFR ( Amer) Est GFR (Non-Af Amer) POC Glucose (mg/dL) 275 H Random Glucose Calcium Phosphorus Magnesium Total Bilirubin AST ALT Alkaline Phosphatase Total Creatine Kinase 4741 H CK-MB (Mass) 50.4 H Troponin I 173.0000 H* Total Protein Albumin Globulin Albumin/Globulin Ratio Procalcitonin 23.35 H 01/19/18 01/19/18 01/20/18 16:22 21:20 07:12 WBC RBC Hgb Hct MCV MCH MCHC RDW Plt Count MPV Neut % (Auto) Lymph % (Auto) [place] % (Auto) Eos % (Auto) Baso % (Auto) Neut # (Auto) Lymph # (Auto) [place] # (Auto) Eos # (Auto) Baso # (Auto) Neutrophils % (Manual) Lymphocytes % (Manual) Monocytes % (Manual) Platelet Estimate Hypochromasia (manual) Poikilocytosis (manual Anisocytosis (manual) Sodium Potassium Chloride Carbon Dioxide Anion Gap BUN Creatinine Est GFR ( Amer) Est GFR (Non-Af Amer) POC Glucose (mg/dL) 142 H 256 H 340 H Random Glucose Calcium Phosphorus Magnesium Total Bilirubin AST ALT Alkaline Phosphatase Total Creatine Kinase CK-MB (Mass) Troponin I Total Protein Albumin Globulin Albumin/Globulin Ratio Procalcitonin 01/20/18 01/20/18 07:13 07:13 WBC 7.7 RBC 4.00 L Hgb 11.8 L Hct 35.5 MCV 88.6 MCH 29.4 MCHC 33.2 RDW 16.5 H Plt Count 170 MPV 11.4 Neut % (Auto) 86.5 H Lymph % (Auto) 6.0 L [place] % (Auto) 7.3 Eos % (Auto) 0.0 Baso % (Auto) 0.2 Neut # (Auto) 6.6 Lymph # (Auto) 0.5 L [place] # (Auto) 0.6 Eos # (Auto) 0.0 Baso # (Auto) 0.0 Neutrophils % (Manual) 89 H Lymphocytes % (Manual) 3 L Monocytes % (Manual) 8 Platelet Estimate Normal Hypochromasia (manual) Slight Poikilocytosis (manual Slight Anisocytosis (manual) Slight Sodium 136 Potassium 4.4 Chloride 93 L Carbon Dioxide 24 Anion Gap 22 H BUN 40 H Creatinine 6.6 H Est GFR ( Amer) 11 Est GFR (Non-Af Amer) 9 POC Glucose (mg/dL) Random Glucose 312 H Calcium 8.1 L Phosphorus 7.5 H Magnesium 2.1 Total Bilirubin 0.7 AST 116 H D ALT 126 H Alkaline Phosphatase 85 Total Creatine Kinase CK-MB (Mass) Troponin I Total Protein 6.6 Albumin 3.7 Globulin 2.9 Albumin/Globulin Ratio 1.3 Procalcitonin EKG/Cardiology Studies: Cardiology / EKG Studies 01/19/18 15:33 ELECTROCARDIOGRAM Stat Comment: Mode Of Transportation: Reason For Exam: chest pain Fingerstick Blood Sugar Results: 340 Critical Care Progress Note - Nutrition Nutrition: Nutrition Category Date Time Status Renal Diet [DIET] Diets 01/20/18 Lunch Active Assessment/Plan - Assessment and Plan (Free Text) Assessment: This is a 57 year old male with PMHx of HTN, CAD with CABG, s/p 3 stents, PR x 3 , T2DM on insulin with diabetic neuropathy and gastroparesis,history of diabetic foot infections S/P amputation of the 5 digits of his right foot, ESRD on HD TTS with Right AVF, hx of permacath related infection with psuedomonas and septic embolic (rule out endocarditis via FLAKITO), patient was admitted to [facility] ([facility] on 01/17, as a Code blue s/p 3 rounds of epi. Patient is intubated on Levophed and Dobutamine s/p cardiac catherization - which showed no obstruction of present graphs, LVEF 25-30%. Patient is transferred to [facility] for dialysis. Extubated 01/19/18. POLST DNR/DNI. 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 No acute intracranial abnormality. - Aspiration precautions Cardio: A: Cardiogenic Shock - Currently off Dobutamine - ECHO (done at [facility]): LVEF 30%, systolic function severely impaired A: Complete heart block - Pacing wire placed during cardiac cath - EP consulted for pacemaker/AICD - pending A: HF with rEF with LVEF 30% A: Hx HTN, HLD - held all BP meds - Held Crestor 2/2 transaminitis A: CAD with CABG, s/p 3 stents, PR x 3 - ASA Pulm: A: Repiratory Failure - Extubated 01/19 GI: A: Transaminitis - downtrending - As per GI- likely 2/ 2 ischemic hepatopathy - Viral studies negative and autoimmune studies ordered - Abdominal US: no acute findings - Held Crestor A: Chronic gastritis, nonbleeding esophagel ulcers - Prior EGD 04/06/2017 showing nonbleeding esophageal ulcers, LAGC esophagitis, and chronic gastritis - Protonix Renal: A: ESRD on HD TTS with Right AVF, making urine -- Dr. Wilson consulted - Patient is noncompliant, attends dialysis 1 out of 3 weekly sessions - Jose Manuel, Phoslo - Received 100 MEQ bicarb Endo: A: T2DM on Insulin - Accuchecks, ISS - Q6H - HgbA1c 7.6 ID: A: LLL Pneumonia vs Effusion - Likely 2/2 cardiac arrest - Lactate 4.2 -> 1.0 - Procal high - On Cefepime, started Azithro - F/U turner cultures - negative to date (done at [facility]) - f/u pneumonia work up Heme/ Onc: A: Anemia of Chronic Disease - Procrit, Phoslo Prophylaxis: - Protonix - SCDs, Hep Q8H - Left Femoral TLC 01/18/18 - removed 01/21 - CODE STATUS: POLST:DNR/DNI - patient was intubated out in the field by EMS Disposition: EP consulted for PPM placement. DW Dr. Arias, Annel Fraser DO, PGY-1 <Darian Arias - Last Filed: 01/20/18 15:15> CCU Objective - Vital Signs / Intake & Output Vital Signs (Last 4 hours): Vital Signs Temp Pulse Resp BP Pulse Ox 01/20/18 14:00 90 21 138/76 95 01/20/18 13:00 96 H 20 155/90 H 01/20/18 12:00 98.4 F 93 H 16 142/84 94 L Intake and Output (Last 8hrs): Intake & Output 01/20/18 01/20/18 01/20/18 06:59 14:59 22:59 Intake Total 104.4 783.6 0 Output Total 50 30 Balance 54.4 753.6 0 Intake: Intake, IV Amount 54.4 63.6 Left Distal Port Femoral 54.4 13.6 Left Medial Port Femoral 50 Oral 50 720 0 Output: Urine 50 30 Urethral (Harris) 50 30 - Medications Active Medications: Active Medications Generic Name Dose Route Start Last Admin Trade Name Freq PRN Reason Stop Dose Admin Acetaminophen 650 mg 01/18/18 16:37 Tylenol 650 Mg Supp [place] Q6H PRN Fever >100.4 F Acetaminophen 650 mg 01/20/18 10:06 01/20/18 10:15 Tylenol 325mg Tab PO 650 mg Q6 PRN Administration Pain, Mild (1-3) Aspirin 81 mg 01/19/18 10:00 01/20/18 09:33 Aspirin Chewable PO 81 mg DAILY DESTINI Administration Calcium Acetate 1,334 mg 01/19/18 09:45 01/20/18 12:27 Phoslo PO 1,334 mg TIDCC DESTINI Administration Heparin Sodium (Porcine) 5,000 units 01/18/18 22:00 01/20/18 15:01 Heparin SC 5,000 units Q8 DESTINI Administration Cefepime HCl 1 gm in 50 mls @ 100 mls/hr 01/19/18 10:00 01/20/18 09:33 Maxipime Iv 1 Gm Premix IVPB 100 mls/hr Q24H DESTINI Administration Protocol Insulin Human Regular 0 unit 01/19/18 16:30 01/20/18 12:27 Novolin R SC 3 u ACHS DESTINI Administration Protocol Pantoprazole Sodium 40 mg 01/19/18 10:00 01/20/18 09:34 Protonix Inj IVP 40 mg DAILY DESTINI Administration - Patient Studies Lab Studies: Microbiology Studies 01/18/18 17:06 MRSA Culture (Admit) - Final Naris MRSA NOT DETECTED Lab Studies 01/20/18 01/20/18 01/20/18 Range/Units 11:53 07:13 07:13 WBC 7.7 (4.8-10.8) K/uL RBC 4.00 L (4.40-5.90) Mil/uL Hgb 11.8 L (12.0-18.0) g/dL Hct 35.5 (35.0-51.0) % MCV 88.6 (80.0-94.0) fL MCH 29.4 (27.0-31.0) pg MCHC 33.2 (33.0-37.0) g/dL RDW 16.5 H (11.5-14.5) % Plt Count 170 (130-400) K/uL MPV 11.4 (7.2-11.7) fL Neut % (Auto) 86.5 H (50.0-75.0) % Lymph % (Auto) 6.0 L (20.0-40.0) % [place] % (Auto) 7.3 (0.0-10.0) % Eos % (Auto) 0.0 (0.0-4.0) % Baso % (Auto) 0.2 (0.0-2.0) % Neut # (Auto) 6.6 (1.8-7.0) K/uL Lymph # (Auto) 0.5 L (1.0-4.3) K/uL [place] # (Auto) 0.6 (0.0-0.8) K/uL Eos # (Auto) 0.0 (0.0-0.7) K/uL Baso # (Auto) 0.0 (0.0-0.2) K/uL Neutrophils % (Manual) 89 H (50-75) % Lymphocytes % (Manual) 3 L (20-40) % Monocytes % (Manual) 8 (0-10) % Platelet Estimate Normal (NORMAL) Hypochromasia (manual) Slight Poikilocytosis (manual Slight Anisocytosis (manual) Slight Sodium 136 (132-148) mmol/L Potassium 4.4 (3.6-5.2) mmol/L Chloride 93 L (98-107) mmol/L Carbon Dioxide 24 (22-30) mmol/L Anion Gap 22 H (10-20) BUN 40 H (9-20) mg/dL Creatinine 6.6 H (0.8-1.5) mg/dL Est GFR ( Amer) 11 Est GFR (Non-Af Amer) 9 POC Glucose (mg/dL) 280 H (65-110) mg/dL Random Glucose 312 H (75-110) mg/dL Calcium 8.1 L (8.6-10.4) mg/dl Phosphorus 7.5 H (2.5-4.5) mg/dL Magnesium 2.1 (1.6-2.3) mg/dL Total Bilirubin 0.7 (0.2-1.3) mg/dL AST 116 H D (17-59) U/L ALT 126 H (21-72) U/L Alkaline Phosphatase 85 (38-126) U/L Total Creatine Kinase (55-170) U/L CK-MB (Mass) (0.0-3.38) ng/mL Troponin I (0.00-0.120) ng/mL Total Protein 6.6 (6.3-8.3) g/dL Albumin 3.7 (3.5-5.0) g/dL Globulin 2.9 (2.2-3.9) gm/dL Albumin/Globulin Ratio 1.3 (1.0-2.1) Ceruloplasmin (18-36) mg/dL Procalcitonin (0.19-0.49) NG/ML Anti-Mitochondrial Ab (Negative) Hepatitis Be Antigen (Non-reactive) 01/20/18 01/19/18 01/19/18 Range/Units 07:12 21:20 16:22 WBC (4.8-10.8) K/uL RBC (4.40-5.90) Mil/uL Hgb (12.0-18.0) g/dL Hct (35.0-51.0) % MCV (80.0-94.0) fL MCH (27.0-31.0) pg MCHC (33.0-37.0) g/dL RDW (11.5-14.5) % Plt Count (130-400) K/uL MPV (7.2-11.7) fL Neut % (Auto) (50.0-75.0) % Lymph % (Auto) (20.0-40.0) % [place] % (Auto) (0.0-10.0) % Eos % (Auto) (0.0-4.0) % Baso % (Auto) (0.0-2.0) % Neut # (Auto) (1.8-7.0) K/uL Lymph # (Auto) (1.0-4.3) K/uL [place] # (Auto) (0.0-0.8) K/uL Eos # (Auto) (0.0-0.7) K/uL Baso # (Auto) (0.0-0.2) K/uL Neutrophils % (Manual) (50-75) % Lymphocytes % (Manual) (20-40) % Monocytes % (Manual) (0-10) % Platelet Estimate (NORMAL) Hypochromasia (manual) Poikilocytosis (manual Anisocytosis (manual) Sodium (132-148) mmol/L Potassium (3.6-5.2) mmol/L Chloride (98-107) mmol/L Carbon Dioxide (22-30) mmol/L Anion Gap (10-20) BUN (9-20) mg/dL Creatinine (0.8-1.5) mg/dL Est GFR ( Amer) Est GFR (Non-Af Amer) POC Glucose (mg/dL) 340 H 256 H 142 H (65-110) mg/dL Random Glucose (75-110) mg/dL Calcium (8.6-10.4) mg/dl Phosphorus (2.5-4.5) mg/dL Magnesium (1.6-2.3) mg/dL Total Bilirubin (0.2-1.3) mg/dL AST (17-59) U/L ALT (21-72) U/L Alkaline Phosphatase (38-126) U/L Total Creatine Kinase (55-170) U/L CK-MB (Mass) (0.0-3.38) ng/mL Troponin I (0.00-0.120) ng/mL Total Protein (6.3-8.3) g/dL Albumin (3.5-5.0) g/dL Globulin (2.2-3.9) gm/dL Albumin/Globulin Ratio (1.0-2.1) Ceruloplasmin (18-36) mg/dL Procalcitonin (0.19-0.49) NG/ML Anti-Mitochondrial Ab (Negative) Hepatitis Be Antigen (Non-reactive) 01/19/18 01/19/18 01/19/18 Range/Units 15:54 14:30 11:30 WBC (4.8-10.8) K/uL RBC (4.40-5.90) Mil/uL Hgb (12.0-18.0) g/dL Hct (35.0-51.0) % MCV (80.0-94.0) fL MCH (27.0-31.0) pg MCHC (33.0-37.0) g/dL RDW (11.5-14.5) % Plt Count (130-400) K/uL MPV (7.2-11.7) fL Neut % (Auto) (50.0-75.0) % Lymph % (Auto) (20.0-40.0) % [place] % (Auto) (0.0-10.0) % Eos % (Auto) (0.0-4.0) % Baso % (Auto) (0.0-2.0) % Neut # (Auto) (1.8-7.0) K/uL Lymph # (Auto) (1.0-4.3) K/uL [place] # (Auto) (0.0-0.8) K/uL Eos # (Auto) (0.0-0.7) K/uL Baso # (Auto) (0.0-0.2) K/uL Neutrophils % (Manual) (50-75) % Lymphocytes % (Manual) (20-40) % Monocytes % (Manual) (0-10) % Platelet Estimate (NORMAL) Hypochromasia (manual) Poikilocytosis (manual Anisocytosis (manual) Sodium (132-148) mmol/L Potassium (3.6-5.2) mmol/L Chloride (98-107) mmol/L Carbon Dioxide (22-30) mmol/L Anion Gap (10-20) BUN (9-20) mg/dL Creatinine (0.8-1.5) mg/dL Est GFR ( Amer) Est GFR (Non-Af Amer) POC Glucose (mg/dL) 275 H (65-110) mg/dL Random Glucose (75-110) mg/dL Calcium (8.6-10.4) mg/dl Phosphorus (2.5-4.5) mg/dL Magnesium (1.6-2.3) mg/dL Total Bilirubin (0.2-1.3) mg/dL AST (17-59) U/L ALT (21-72) U/L Alkaline Phosphatase (38-126) U/L Total Creatine Kinase 4741 H (55-170) U/L CK-MB (Mass) 50.4 H (0.0-3.38) ng/mL Troponin I 173.0000 H* (0.00-0.120) ng/mL Total Protein (6.3-8.3) g/dL Albumin (3.5-5.0) g/dL Globulin (2.2-3.9) gm/dL Albumin/Globulin Ratio (1.0-2.1) Ceruloplasmin (18-36) mg/dL Procalcitonin 23.35 H (0.19-0.49) NG/ML Anti-Mitochondrial Ab (Negative) Hepatitis Be Antigen (Non-reactive) 01/18/18 Range/Units 08:07 WBC (4.8-10.8) K/uL RBC (4.40-5.90) Mil/uL Hgb (12.0-18.0) g/dL Hct (35.0-51.0) % MCV (80.0-94.0) fL MCH (27.0-31.0) pg MCHC (33.0-37.0) g/dL RDW (11.5-14.5) % Plt Count (130-400) K/uL MPV (7.2-11.7) fL Neut % (Auto) (50.0-75.0) % Lymph % (Auto) (20.0-40.0) % [place] % (Auto) (0.0-10.0) % Eos % (Auto) (0.0-4.0) % Baso % (Auto) (0.0-2.0) % Neut # (Auto) (1.8-7.0) K/uL Lymph # (Auto) (1.0-4.3) K/uL [place] # (Auto) (0.0-0.8) K/uL Eos # (Auto) (0.0-0.7) K/uL Baso # (Auto) (0.0-0.2) K/uL Neutrophils % (Manual) (50-75) % Lymphocytes % (Manual) (20-40) % Monocytes % (Manual) (0-10) % Platelet Estimate (NORMAL) Hypochromasia (manual) Poikilocytosis (manual Anisocytosis (manual) Sodium (132-148) mmol/L Potassium (3.6-5.2) mmol/L Chloride (98-107) mmol/L Carbon Dioxide (22-30) mmol/L Anion Gap (10-20) BUN (9-20) mg/dL Creatinine (0.8-1.5) mg/dL Est GFR ( Amer) Est GFR (Non-Af Amer) POC Glucose (mg/dL) (65-110) mg/dL Random Glucose (75-110) mg/dL Calcium (8.6-10.4) mg/dl Phosphorus (2.5-4.5) mg/dL Magnesium (1.6-2.3) mg/dL Total Bilirubin (0.2-1.3) mg/dL AST (17-59) U/L ALT (21-72) U/L Alkaline Phosphatase (38-126) U/L Total Creatine Kinase (55-170) U/L CK-MB (Mass) (0.0-3.38) ng/mL Troponin I (0.00-0.120) ng/mL Total Protein (6.3-8.3) g/dL Albumin (3.5-5.0) g/dL Globulin (2.2-3.9) gm/dL Albumin/Globulin Ratio (1.0-2.1) Ceruloplasmin 25 (18-36) mg/dL Procalcitonin (0.19-0.49) NG/ML Anti-Mitochondrial Ab Negative (Negative) Hepatitis Be Antigen Non-reactive (Non-reactive) Laboratory Results - last 24 hr 01/18/18 01/19/18 01/19/18 08:07 11:30 14:30 WBC RBC Hgb Hct MCV MCH MCHC RDW Plt Count MPV Neut % (Auto) Lymph % (Auto) [place] % (Auto) Eos % (Auto) Baso % (Auto) Neut # (Auto) Lymph # (Auto) [place] # (Auto) Eos # (Auto) Baso # (Auto) Neutrophils % (Manual) Lymphocytes % (Manual) Monocytes % (Manual) Platelet Estimate Hypochromasia (manual) Poikilocytosis (manual Anisocytosis (manual) Sodium Potassium Chloride Carbon Dioxide Anion Gap BUN Creatinine Est GFR ( Amer) Est GFR (Non-Af Amer) POC Glucose (mg/dL) 275 H Random Glucose Calcium Phosphorus Magnesium Total Bilirubin AST ALT Alkaline Phosphatase Total Creatine Kinase CK-MB (Mass) Troponin I Total Protein Albumin Globulin Albumin/Globulin Ratio Ceruloplasmin 25 Procalcitonin 23.35 H Anti-Mitochondrial Ab Negative Hepatitis Be Antigen Non-reactive 01/19/18 01/19/18 01/19/18 15:54 16:22 21:20 WBC RBC Hgb Hct MCV MCH MCHC RDW Plt Count MPV Neut % (Auto) Lymph % (Auto) [place] % (Auto) Eos % (Auto) Baso % (Auto) Neut # (Auto) Lymph # (Auto) [place] # (Auto) Eos # (Auto) Baso # (Auto) Neutrophils % (Manual) Lymphocytes % (Manual) Monocytes % (Manual) Platelet Estimate Hypochromasia (manual) Poikilocytosis (manual Anisocytosis (manual) Sodium Potassium Chloride Carbon Dioxide Anion Gap BUN Creatinine Est GFR ( Amer) Est GFR (Non-Af Amer) POC Glucose (mg/dL) 142 H 256 H Random Glucose Calcium Phosphorus Magnesium Total Bilirubin AST ALT Alkaline Phosphatase Total Creatine Kinase 4741 H CK-MB (Mass) 50.4 H Troponin I 173.0000 H* Total Protein Albumin Globulin Albumin/Globulin Ratio Ceruloplasmin Procalcitonin Anti-Mitochondrial Ab Hepatitis Be Antigen 01/20/18 01/20/18 01/20/18 07:12 07:13 07:13 WBC 7.7 RBC 4.00 L Hgb 11.8 L Hct 35.5 MCV 88.6 MCH 29.4 MCHC 33.2 RDW 16.5 H Plt Count 170 MPV 11.4 Neut % (Auto) 86.5 H Lymph % (Auto) 6.0 L [place] % (Auto) 7.3 Eos % (Auto) 0.0 Baso % (Auto) 0.2 Neut # (Auto) 6.6 Lymph # (Auto) 0.5 L [place] # (Auto) 0.6 Eos # (Auto) 0.0 Baso # (Auto) 0.0 Neutrophils % (Manual) 89 H Lymphocytes % (Manual) 3 L Monocytes % (Manual) 8 Platelet Estimate Normal Hypochromasia (manual) Slight Poikilocytosis (manual Slight Anisocytosis (manual) Slight Sodium 136 Potassium 4.4 Chloride 93 L Carbon Dioxide 24 Anion Gap 22 H BUN 40 H Creatinine 6.6 H Est GFR ( Amer) 11 Est GFR (Non-Af Amer) 9 POC Glucose (mg/dL) 340 H Random Glucose 312 H Calcium 8.1 L Phosphorus 7.5 H Magnesium 2.1 Total Bilirubin 0.7 AST 116 H D ALT 126 H Alkaline Phosphatase 85 Total Creatine Kinase CK-MB (Mass) Troponin I Total Protein 6.6 Albumin 3.7 Globulin 2.9 Albumin/Globulin Ratio 1.3 Ceruloplasmin Procalcitonin Anti-Mitochondrial Ab Hepatitis Be Antigen 01/20/18 11:53 WBC RBC Hgb Hct MCV MCH MCHC RDW Plt Count MPV Neut % (Auto) Lymph % (Auto) [place] % (Auto) Eos % (Auto) Baso % (Auto) Neut # (Auto) Lymph # (Auto) [place] # (Auto) Eos # (Auto) Baso # (Auto) Neutrophils % (Manual) Lymphocytes % (Manual) Monocytes % (Manual) Platelet Estimate Hypochromasia (manual) Poikilocytosis (manual Anisocytosis (manual) Sodium Potassium Chloride Carbon Dioxide Anion Gap BUN Creatinine Est GFR ( Amer) Est GFR (Non-Af Amer) POC Glucose (mg/dL) 280 H Random Glucose Calcium Phosphorus Magnesium Total Bilirubin AST ALT Alkaline Phosphatase Total Creatine Kinase CK-MB (Mass) Troponin I Total Protein Albumin Globulin Albumin/Globulin Ratio Ceruloplasmin Procalcitonin Anti-Mitochondrial Ab Hepatitis Be Antigen EKG/Cardiology Studies: Cardiology / EKG Studies 01/19/18 15:33 ELECTROCARDIOGRAM Stat Comment: Mode Of Transportation: Reason For Exam: chest pain Critical Care Progress Note - Nutrition Nutrition: Nutrition Category Date Time Status Renal Diet [DIET] Diets 01/20/18 Lunch Active Attending/Attestation - Attestation I have personally seen and examined this patient.: Yes I have fully participated in the care of the patient.: Yes I have reviewed all pertinent clinical information: Yes Notes (Text): 01/20/18 15:14 patient seen and examined in the intensive care unit. Sitting comfortably in no acute distress Patient agreed for pacemaker/AICD Continue present treatment for now Continue antibiotics
[2018-01-20 10:21] LABS: CERULOPLASMIN 25 mg/dL (18-36)
--- NOTE | 2018-01-20 20:14 | CP.PCM.PN ---
Subjective - Date & Time of Evaluation Date of Evaluation: 01/20/18 Time of Evaluation: 18:15 - Subjective Subjective: Hospitalist Progress Note Patient was seen and examined at 6:15 PM Upon FULL ROS he currently has not complaints He is for AICD/Pacmaker [place] [facility] [place] Novak either 01/21/18 or 01/22/18 - Constitutional Appears: Non-toxic, No Acute Distress - Head Exam Additional comments: NCA - Eye Exam Eye Exam: EOMI, PERRL - Respiratory Exam Respiratory Exam: Decreased Breath Sounds, Rales (bibasilar) Additional comments: - Cardiovascular Exam Cardiovascular Exam: REGULAR RHYTHM, +S1, +S2 - GI/Abdominal Exam GI & Abdominal Exam: Soft, Normal Bowel Sounds. absent: Distended, Firm, Guarding, Rigid, Tenderness, Rebound - Exam Additional comments: TVP via the groin (right side) - Extremities Exam Extremities Exam: absent: Pedal Edema, Tenderness - Neurological Exam Neurological Exam: Alert, Awake Neuro motor strength exam: Left Upper Extremity: 5, Right Upper Extremity: 5, Left Lower Extremity: 5, Right Lower Extremity: 5 - Psychiatric Exam Psychiatric exam: Normal Affect, Normal Mood - Skin Skin Exam: Dry, Normal Color, Warm Assessment and Plan (1) Heart block Assessment & Plan: patient was found in complete heart block, cardiogenic shock and hyperkalemic on 01/18/18. Had a temporary venous pacemaker placed on 01/18/18 Was code blue and code heart 01/18/18 Transferred to [facility], [place] for dialysis primarily Status: Acute (2) Cardiogenic shock Assessment & Plan: Had temporary pacemaker placed at [facility] Status: Acute (3) History of OK (myocardial infarction) Assessment & Plan: 3 prior of OK Official cardiac cath not available from [facility]--> per review of record no acute occlusion and temporary Echocardiogram (01/18/18): left ventricle is normal size, systolic function is moderately impaired EF:30% mitral regurgitation is trace, trace tricupsid regurgitation, s/p cardiac arrest, s/p TVR, and cardiac cath prior cath (04/07/17): inferobasal hypokinesis of the LV with preserved LV function EF: 50%. 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 Patent saphenous vein graft to the posterior lateral branch. Chronic. Aspirin 81mg PO daily Status: Acute (4) Hx of CABG Assessment & Plan: 3 prior of OK Echocardiogram (01/18/18): left ventricle is normal size, systolic function is moderately impaired EF:30% mitral regurgitation is trace, trace tricupsid regurgitation, s/p cardiac arrest, s/p TVR, and cardiac cath prior cath (04/07/17): inferobasal hypokinesis of the LV with preserved LV function EF: 50%. 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 Patent saphenous vein graft to the posterior lateral branch. Chronic. Status: Acute (5) Diabetes Assessment & Plan: hgba1c: 7.6 Accuchecks Q6H insulin sliding scale subq Status: Acute (6) Amputation foot, unilat Assessment & Plan: right lower extremity all toes amputed Status: Chronic (7) Pneumonia Assessment & Plan: Cefepime 1gram IV q12 Status: Acute (8) ESRD (end stage renal disease) on dialysis Assessment & Plan: Nephrology (Dr. Wilson) help appreciated patient underwent dialysis last night when he was transferred from [facility] He is //thursday as outpatient Status: Acute (9) Prophylactic measure Assessment & Plan: POLST: DNR/DNI Surrogate: Geoffrey Oro [phone] Status: Acute Jurgen Barron D.O. Objective - Vital Signs/Intake and Output Vital Signs (last 24 hours): Temp Pulse Resp BP Pulse Ox 98.8 F 90 16 163/91 H 95 01/20/18 20:00 01/20/18 19:00 01/20/18 19:00 01/20/18 19:00 01/20/18 17:00 Intake and Output: 01/20/18 01/21/18 18:59 06:59 Intake Total 1023.6 0 Output Total 30 Balance 993.6 0 - Medications Medications: Current Medications Acetaminophen (Tylenol 650 Mg Supp) 650 mg [place] Q6H PRN PRN Reason: Fever >100.4 F Acetaminophen (Tylenol 325mg Tab) 650 mg PO Q6 PRN PRN Reason: Pain, Mild (1-3) Last Admin: 06/27/18 10:15 Dose: 650 mg Aspirin (Aspirin Chewable) 81 mg PO DAILY [facility] Last Admin: 01/20/18 09:33 Dose: 81 mg Calcium Acetate (Phoslo) 1,334 mg PO TIDCC [facility] Last Admin: 01/20/18 17:00 Dose: 1,334 mg Heparin Sodium (Porcine) (Heparin) 5,000 units SC Q8 [facility] Last Admin: 01/20/18 15:01 Dose: 5,000 units Cefepime HCl (Maxipime Iv 1 Gm Premix) 1 gm in 50 mls @ 100 mls/hr IVPB Q24H [facility] PRN Reason: Protocol Last Admin: 01/20/18 09:33 Dose: 100 mls/hr Insulin Human Regular (Novolin R) 0 unit SC ACHS [facility] PRN Reason: Protocol Last Admin: 01/20/18 17:00 Dose: 4 u Pantoprazole Sodium (Protonix Inj) 40 mg IVP DAILY [facility] Last Admin: 01/20/18 09:34 Dose: 40 mg - Labs Labs: 01/20/18 07:13 01/20/18 07:13
--- NOTE | 2018-01-20 22:28 | CARD ---
APPROVED REPORT EKG Measurement Heart [id number] <Conclusion> Sinus rhythm with premature atrial complexes Left axis deviation Right bundle branch block Septal infarct, age undetermined Abnormal ECG
--- NOTE | 2018-01-20 22:52 | CP.PCM.PN ---
Subjective - Date & Time of Evaluation Date of Evaluation: 01/20/18 Time of Evaluation: 11:10 - Subjective Subjective: Patient seen and evaluated denies chest pain and dyspnea Patient s/p Cardiac arrest Patient agreed for AICD Objective - Vital Signs/Intake and Output Vital Signs (last 24 hours): Temp Pulse Resp BP Pulse Ox 98.8 F 90 16 163/91 H 95 01/20/18 20:00 01/20/18 19:00 01/20/18 19:00 01/20/18 19:00 01/20/18 17:00 Intake and Output: 01/20/18 01/21/18 18:59 06:59 Intake Total 1023.6 0 Output Total 30 Balance 993.6 0 - Medications Medications: Current Medications Acetaminophen (Tylenol 650 Mg Supp) 650 mg [place] Q6H PRN PRN Reason: Fever >100.4 F Acetaminophen (Tylenol 325mg Tab) 650 mg PO Q6 PRN PRN Reason: Pain, Mild (1-3) Last Admin: 01/20/18 10:15 Dose: 650 mg Aspirin (Aspirin Chewable) 81 mg PO DAILY [facility] Last Admin: 01/20/18 09:33 Dose: 81 mg Calcium Acetate (Phoslo) 1,334 mg PO TIDCC [facility] Last Admin: 01/20/18 17:00 Dose: 1,334 mg Heparin Sodium (Porcine) (Heparin) 5,000 units SC Q8 [facility] Last Admin: 01/20/18 22:00 Dose: 5,000 units Cefepime HCl (Maxipime Iv 1 Gm Premix) 1 gm in 50 mls @ 100 mls/hr IVPB Q24H [facility] PRN Reason: Protocol Last Admin: 01/20/18 09:33 Dose: 100 mls/hr Insulin Human Regular (Novolin R) 0 unit SC ACHS [facility] PRN Reason: Protocol Last Admin: 01/20/18 17:00 Dose: 4 u Pantoprazole Sodium (Protonix Inj) 40 mg IVP DAILY [facility] Last Admin: 01/20/18 09:34 Dose: 40 mg - Labs Labs: 01/20/18 07:13 01/20/18 07:13
[2018-01-21] MEDS ORDERED: Metoprolol 1 mg/ml Inj IVP STA (06:08)
[2018-01-21] MEDS ORDERED: Metoprolol 1 mg/ml Inj IVP ONE (06:14)
[2018-01-21 06:25] LABS: BASO % 0.5 % (0.0-2.0); EOS % 0.3 % (0.0-4.0); HEMOGLOBIN 12.8 g/dL (12.0-18.0); LYMPH # 1.8 K/uL (1.0-4.3); LYMPH % 18.8 % (20.0-40.0); MEAN CORPUSCULAR HEMOGLOBIN 29.5 pg (27.0-31.0); MEAN CORPUSCULAR HGB CONC 33.5 g/dL (33.0-37.0); MEAN PLATELET VOLUME 10.9 fL (7.2-11.7); MONO # 0.9 K/uL (0.0-0.8); MONO % 9.2 % (0.0-10.0); NEUT # 6.7 K/uL (1.8-7.0); NEUT % 71.2 % (50.0-75.0); NRBC % 0.1 % (0.0-2.0); RBC 4.33 Mil/uL (4.40-5.90); RED CELL DISTRIBUTION WIDTH 15.9 % (11.5-14.5); WHITE BLOOD COUNT 9.5 K/uL (4.8-10.8)
--- NOTE | 2018-01-21 06:30 | CP.PCM.PN ---
Subjective - Date & Time of Evaluation Date of Evaluation: 01/21/18 Time of Evaluation: 06:30 - Subjective Subjective: Called to evaluate this patient with Tachycardia The patient is awake and alert complaining of chest discomfort Resp: Harsh CVS: S1 S2 Irregular and tachycardic Abd: Full, Nontender Neuro: Non focal Cardiac Strip: A wide complex tachycardia in [id number], triplets and salvos of 20 beats and a rate of 130s/min EKG 12 lead: A wide complex sinus rhythm with bursts of Tachycardia A&P: #. Wide Complex Tachycardia, most likely V Tach - Metoprolol 5mg Given IV stat; The Tachycardia resolved and the rhythm returned to NSR at 85/min The patient referred feeling better. Critical care time 20mins Rafiq Mackenzie MD Objective - Vital Signs/Intake and Output Vital Signs (last 24 hours): Temp Pulse Resp BP Pulse Ox 98.8 F 89 10 L 162/88 H 92 L 01/20/18 20:00 01/21/18 03:40 01/21/18 03:40 01/21/18 03:31 01/21/18 03:40 Intake and Output: 01/20/18 01/21/18 18:59 06:59 Intake Total 1023.6 0 Output Total 30 Balance 993.6 0 - Medications Medications: Current Medications Acetaminophen (Tylenol 650 Mg Supp) 650 mg [place] Q6H PRN PRN Reason: Fever >100.4 F Acetaminophen (Tylenol 325mg Tab) 650 mg PO Q6 PRN PRN Reason: Pain, Mild (1-3) Last Admin: 01/20/18 10:15 Dose: 650 mg Aspirin (Aspirin Chewable) 81 mg PO DAILY [facility] Last Admin: 01/20/18 09:33 Dose: 81 mg Calcium Acetate (Phoslo) 1,334 mg PO TIDCC [facility] Last Admin: 01/20/18 17:00 Dose: 1,334 mg Heparin Sodium (Porcine) (Heparin) 5,000 units SC Q8 [facility] Last Admin: 01/21/18 05:26 Dose: 5,000 units Cefepime HCl (Maxipime Iv 1 Gm Premix) 1 gm in 50 mls @ 100 mls/hr IVPB Q24H [facility] PRN Reason: Protocol Last Admin: 01/20/18 09:33 Dose: 100 mls/hr Insulin Human Regular (Novolin R) 0 unit SC ACHS [facility] PRN Reason: Protocol Last Admin: 01/20/18 22:00 Dose: Not Given Pantoprazole Sodium (Protonix Inj) 40 mg IVP DAILY [facility] Last Admin: 01/20/18 09:34 Dose: 40 mg - Labs Labs: 01/21/18 06:18 01/20/18 07:13
[2018-01-21 06:41] LABS: ALB/GLOB RATIO 1.3 (1.0-2.1); ALBUMIN 4.1 g/dL (3.5-5.0); CALCIUM 8.6 mg/dl (8.6-10.4)
[2018-01-21 06:52] LABS: INR 1.1; PROTHROMBIN TIME 11.8 SECONDS (9.7-12.2)
[2018-01-21] MEDS: (Novolin R) Insulin Human Regular 100 units/ml vial SC SCH ×4 (08:58→21:25)
[2018-01-21 10:01] LABS: ARTERIAL BLOOD GAS HCO3 20.1 mmol/L (21-28); ARTERIAL BLOOD GAS O2 SAT 48.8 % (95-98); ARTERIAL BLOOD GAS PCO2 37 mm/Hg (35-45); ARTERIAL BLOOD GAS PH 7.35 (7.35-7.45); ARTERIAL BLOOD GAS PO2 30 mm/Hg (80-100); ARTERIAL BLOOD GAS TCO2 21.5 mmol/L (22-28)
[2018-01-21] MEDS: Magnesium Sulfate 1 gm in D5W 1 GM/100 ML BAG IVPB SCH (10:17)
[2018-01-21] MEDS: Cefepime IV 1 gm in Dextrose 1 GM/50 ML BAG IVPB SCH (10:18)
[2018-01-21 10:19] LABS: BASO % 0.6 % (0.0-2.0); EOS % 0.3 % (0.0-4.0); HEMOGLOBIN 11.8 g/dL (12.0-18.0); MEAN CELL VOLUME 87.2 fL (80.0-94.0); MEAN CORPUSCULAR HEMOGLOBIN 28.7 pg (27.0-31.0); MEAN PLATELET VOLUME 10.4 fL (7.2-11.7); MONO # 0.7 K/uL (0.0-0.8); MONO % 8.8 % (0.0-10.0); NEUT # 5.7 K/uL (1.8-7.0); NEUT % 77.3 % (50.0-75.0); NRBC % 0.2 % (0.0-2.0); RBC 4.1 Mil/uL (4.40-5.90); RED CELL DISTRIBUTION WIDTH 15.6 % (11.5-14.5); WHITE BLOOD COUNT 7.4 K/uL (4.8-10.8)
[2018-01-21 10:34] LABS: ALB/GLOB RATIO 1.2 (1.0-2.1); ALBUMIN 3.4 g/dL (3.5-5.0); CALCIUM 8.1 mg/dl (8.6-10.4)
[2018-01-21 10:45] LABS: CK-MB 7.59 ng/mL (0.0-3.38)
--- NOTE | 2018-01-21 13:00 | CP.PCM.PN ---
Subjective - Date & Time of Evaluation Date of Evaluation: 01/21/18 Time of Evaluation: 10:00 - Subjective Subjective: Patient denies acute symptoms. Appears tired and unable to fully concentrate. Answers " yes" to many questions. Alert and oriented X 3. Objective - Vital Signs/Intake and Output Vital Signs (last 24 hours): Temp Pulse Resp BP Pulse Ox 98.3 F 73 13 132/75 98 01/21/18 12:00 01/21/18 12:31 01/21/18 12:31 01/21/18 12:31 01/21/18 11:40 Intake and Output: 01/21/18 01/21/18 06:59 18:59 Intake Total 480 686.63 Output Total 350 0 Balance 130 686.63 - Medications Medications: Current Medications Acetaminophen (Tylenol 650 Mg Supp) 650 mg [place] Q6H PRN PRN Reason: Fever >100.4 F Acetaminophen (Tylenol 325mg Tab) 650 mg PO Q6 PRN PRN Reason: Pain, Mild (1-3) Last Admin: 01/20/18 10:15 Dose: 650 mg Aspirin (Aspirin Chewable) 81 mg PO DAILY [facility] Last Admin: 01/21/18 08:59 Dose: 81 mg Calcium Acetate (Phoslo) 1,334 mg PO TIDCC [facility] Last Admin: 01/21/18 12:56 Dose: 1,334 mg Heparin Sodium (Porcine) (Heparin) 5,000 units SC Q8 [facility] Last Admin: 01/21/18 05:26 Dose: 5,000 units Cefepime HCl (Maxipime Iv 1 Gm Premix) 1 gm in 50 mls @ 100 mls/hr IVPB Q24H [facility] PRN Reason: Protocol Last Admin: 01/21/18 10:18 Dose: 100 mls/hr Amiodarone HCl 900 mg/ (Dextrose) 500 mls @ 33.33 mls/hr IV .Q15H1M ONE; 1 MG/ MIN PRN Reason: Protocol Stop: 01/22/18 00:51 Last Admin: 01/21/18 11:12 Dose: 33.33 mls/hr Insulin Human Regular (Novolin R) 0 unit SC ACHS [facility] PRN Reason: Protocol Last Admin: 01/21/18 12:56 Dose: 4 u Metoprolol Tartrate (Lopressor) 25 mg PO BID [facility] Last Admin: 01/21/18 10:16 Dose: 25 mg Pantoprazole Sodium (Protonix Inj) 40 mg IVP DAILY [facility] Last Admin: 01/21/18 08:59 Dose: 40 mg - Labs Labs: 01/21/18 10:15 01/21/18 10:15 PT 11.8 SECONDS (9.7-12.2) 01/21/18 06:19 INR 1.1 01/21/18 06:19 APTT 27 SECONDS (21-34) 01/21/18 06:19 - Constitutional Appears: Chronically Ill - Head Exam Head Exam: ATRAUMATIC, NORMAL INSPECTION, NORMOCEPHALIC - Eye Exam Eye Exam: EOMI, Normal appearance, PERRL Pupil Exam: NORMAL ACCOMODATION, PERRL - ENT Exam ENT Exam: Mucous Membranes Moist, Normal Exam - Neck Exam Neck Exam: Full ROM - Respiratory Exam Respiratory Exam: Decreased Breath Sounds, NORMAL BREATHING PATTERN - Cardiovascular Exam Cardiovascular Exam: Tachycardia, Irregular Rhythm - GI/Abdominal Exam GI & Abdominal Exam: Normal Bowel Sounds - Exam Exam: NORMAL INSPECTION - Extremities Exam Additional comments: right foot amputated digits - Back Exam Back Exam: NORMAL INSPECTION - Neurological Exam Neurological Exam: Alert, Altered Neuro motor strength exam: Left Upper Extremity: 2/1, Right Upper Extremity: 2/1 , Left Lower Extremity: 2/1, Right Lower Extremity: 2/1 - Psychiatric Exam Psychiatric exam: Normal Affect, Normal Mood - Skin Skin Exam: Normal Color, Warm Assessment and Plan - Assessment and Plan (Free Text) Assessment: Palliative progress note Patient examined in bed. Denies acute symptoms, only complaints of " feeling warm". Body temperature normal. last night , patient was with irregular heart beats, V Tach seen on EKG. Patient was given Metoprolol 5 mg IV STAT and rhythm converted to regular, 85 bpm. ICU team this morning did not feeling comfortable with current patient's Code status, as he has been giving different answers to different people at different time. Last time when discussed Code status with patent, just prior ET tube was removed, he wanted his wishes on POLST to be fallowed, indicating DNR/DNI. This morning Code status discussed again, first by MD Barron on rounds, than by me. I reviewed patient's clinical presentation with him and shared ICU team concerns regarding CODE status as team feels patient was sending them mixed messages. I also discussed the arrhythmias of last night with his HR of 122. Patient was able to fallow discussion, but his answers were " I don't know' or " yes" to many questions. I asked patient if he would want me to talk to his friend Geoffrey who patient chose as a surrogate decision maker. Patient agreed. Family meting attended by Mr. Hale Dawsonisaac, patient's surrogate decision maker. Patient's condition and events of last night reviewed again. Goals of care discussed. Mr. Hale believes that patient has survived for a reason; if his previously stated wishes in POLST were fallowed, he would be by now. Patient listened carefully, trying to put things together. Geoffrey believes that patient should be treated as needed applying all measures, including aggressive. Only if patient's life would permanently depend on life support, that at that time life support should be removed. Patient agreed. Impression * Chronically ill man, recovering from cardiac arrest * Mild confusion, preventing patient from acting upon his best interest * Weakness * V Tach over night * Patient's friend Geoffrey advocates for patient and chose Full Code Suggestion * Assist with ADLs * Promote safety * Full Code Advance planing 45 min
--- NOTE | 2018-01-21 13:43 | CP.CCUPN ---
<Annel Fraser - Last Filed: 01/21/18 13:37> CCU Subjective - Physician Review Subjective (Free Text): Patient seen and examined at bedside. Patient had dialysis today, went into VTACH. No pulse during HD. HD was stopped. Patient was bagged. Patient's rhythm returned to initially sinus tach, then normal sinus. Patient was alert, lethargic, unable to formulate words. lopressor 5mg IVP given, Mg x 2 bags, amiodarone drip given, lopressor 25mg PO BID (given once patient's mentation returned). Patient's code status was re-evaluated. As of 10am 01/21/18 patient is FULL CODE ; confirmed with patient and MrPriscilla Oro, patient's surrogate decision maker - patient is now FULL CODE. CCU Objective - Vital Signs / Intake & Output Vital Signs (Last 4 hours): Vital Signs Temp Pulse Resp BP BP Pulse Ox 01/21/18 13:16 149/80 01/21/18 13:15 71 14 96 01/21/18 13:10 72 19 96 01/21/18 13:01 73 15 150/81 97 01/21/18 13:00 72 16 96 01/21/18 12:50 73 13 96 01/21/18 12:46 73 15 137/80 97 01/21/18 12:40 74 13 01/21/18 12:31 73 13 132/75 01/21/18 12:30 73 11 L 01/21/18 12:20 75 18 01/21/18 12:16 75 27 H 143/89 01/21/18 12:10 80 12 01/21/18 12:01 75 18 141/77 01/21/18 12:00 98.3 F 74 24 01/21/18 11:50 76 14 01/21/18 11:46 75 16 151/79 H 01/21/18 11:40 76 10 L 98 01/21/18 11:31 77 12 151/86 H 98 01/21/18 11:30 77 26 H 01/21/18 11:20 77 21 98 01/21/18 11:16 78 11 L 125/66 98 01/21/18 11:12 162/88 H 01/21/18 11:10 79 24 98 01/21/18 11:01 80 29 H 162/88 H 98 01/21/18 11:00 81 23 98 01/21/18 10:50 81 25 H 97 01/21/18 10:46 82 26 H 157/85 H 98 01/21/18 10:40 85 22 98 01/21/18 10:31 86 24 154/85 H 98 01/21/18 10:30 85 14 97 01/21/18 10:20 86 21 98 01/21/18 10:18 85 14 156/90 H 98 01/21/18 10:16 174/94 H 01/21/18 10:10 88 24 98 01/21/18 10:01 91 H 19 174/94 H 99 01/21/18 10:00 104 H 27 H 99 01/21/18 09:59 106 H 22 169/94 H 98 01/21/18 09:54 92 H 29 H 195/110 H 100 01/21/18 09:50 97 H 28 H 100 01/21/18 09:46 88 28 H 126/69 95 01/21/18 09:45 126/69 01/21/18 09:40 88 27 H 96 Intake and Output (Last 8hrs): Intake & Output 01/20/18 01/21/18 01/21/18 22:59 06:59 14:59 Intake Total 360 360 831.93 Output Total 0 350 0 Balance 360 10 831.93 Weight 196 lb 10 oz Intake: Intake, IV Amount 499.93 Left Forearm 200 Left Wrist 299.93 Oral 360 360 332 Output: Urine 0 350 0 Urine, Voided 0 350 0 Other: # Voids Urine, Voided 1 2 # Bowel Movements 1 1 - Physical Exam Head: Positive for: Atraumatic, Normocephalic Pupils: Positive for: PERRL Extroacular Muscles: Positive for: EOMI Conjunctiva: Positive for: Normal Mouth: Positive for: Dry Respiratory/Chest: Positive for: Clear to Auscultation Cardiovascular: Positive for: Regular Rate and Rhythm Abdomen: Positive for: Normal Bowel Sounds - Medications Active Medications: Active Medications Generic Name Dose Route Start Last Admin Trade Name Freq PRN Reason Stop Dose Admin Acetaminophen 650 mg 01/18/18 16:37 Tylenol 650 Mg Supp MO Q6H PRN Fever >100.4 F Acetaminophen 650 mg 01/20/18 10:06 01/20/18 10:15 Tylenol 325mg Tab PO 650 mg Q6 PRN Administration Pain, Mild (1-3) Aspirin 81 mg 01/19/18 10:00 01/21/18 08:59 Aspirin Chewable PO 81 mg DAILY DESTINI Administration Calcium Acetate 1,334 mg 01/19/18 09:45 01/21/18 12:56 Phoslo PO 1,334 mg TIDCC DESTINI Administration Heparin Sodium (Porcine) 5,000 units 01/18/18 22:00 01/21/18 12:59 Heparin SC 5,000 units Q8 DESTINI Administration Cefepime HCl 1 gm in 50 mls @ 100 mls/hr 01/19/18 10:00 01/21/18 10:18 Maxipime Iv 1 Gm Premix IVPB 100 mls/hr Q24H DESTINI Administration Protocol Amiodarone HCl 900 mg/ 500 mls @ 33.33 mls/hr 01/21/18 09:51 01/21/18 11:12 Dextrose IV 01/22/18 00:51 33.33 mls/hr .Q15H1M ONE Administration Protocol 1 MG/MIN Insulin Human Regular 0 unit 01/19/18 16:30 01/21/18 12:56 Novolin R SC 4 u ACHS DESTINI Administration Protocol Metoprolol Tartrate 25 mg 01/21/18 10:15 01/21/18 10:16 Lopressor PO 25 mg BID DESTINI Administration Pantoprazole Sodium 40 mg 01/19/18 10:00 01/21/18 08:59 Protonix Inj IVP 40 mg DAILY DESTINI Administration - Patient Studies Lab Studies: Lab Studies 01/21/18 01/21/18 01/21/18 Range/Units 11:58 10:15 10:15 WBC 7.4 (4.8-10.8) K/uL RBC 4.10 L (4.40-5.90) Mil/uL Hgb 11.8 L (12.0-18.0) g/dL Hct 35.7 (35.0-51.0) % MCV 87.2 (80.0-94.0) fL MCH 28.7 (27.0-31.0) pg MCHC 33.0 (33.0-37.0) g/dL RDW 15.6 H (11.5-14.5) % Plt Count 195 (130-400) K/uL MPV 10.4 (7.2-11.7) fL Neut % (Auto) 77.3 H (50.0-75.0) % Lymph % (Auto) 13.0 L (20.0-40.0) % Arthur % (Auto) 8.8 (0.0-10.0) % Eos % (Auto) 0.3 (0.0-4.0) % Baso % (Auto) 0.6 (0.0-2.0) % Neut # (Auto) 5.7 (1.8-7.0) K/uL Lymph # (Auto) 1.0 (1.0-4.3) K/uL Arthur # (Auto) 0.7 (0.0-0.8) K/uL Eos # (Auto) 0.0 (0.0-0.7) K/uL Baso # (Auto) 0.0 (0.0-0.2) K/uL PT (9.7-12.2) SECONDS INR APTT (21-34) SECONDS Puncture Site pCO2 (35-45) mm/Hg pO2 (80-100) mm/Hg HCO3 (21-28) mmol/L ABG pH (7.35-7.45) ABG Total CO2 (22-28) mmol/L ABG O2 Saturation (95-98) % ABG Base Excess (-2.0-3.0) mmol/L Vickey Test ABG Potassium (3.6-5.2) mmol/L Glucose (75-110) mg/dl Lactate (0.7-2.1) mmol/L Liter Flow Blood Gas Comments Crit Value Called To Crit Value Called By Crit Value Read Back Blood Gas Notified Time Sodium 132 (132-148) mmol/L Potassium 4.2 (3.6-5.2) mmol/L Chloride 95 L (98-107) mmol/L Carbon Dioxide 23 (22-30) mmol/L Anion Gap 19 (10-20) BUN 57 H (9-20) mg/dL Creatinine 8.0 H* (0.8-1.5) mg/dL Est GFR ( Amer) 8 Est GFR (Non-Af Amer) 7 POC Glucose (mg/dL) 348 H (65-110) mg/dL Random Glucose 299 H (75-110) mg/dL Calcium 8.1 L (8.6-10.4) mg/dl Phosphorus 7.1 H (2.5-4.5) mg/dL Magnesium 2.3 (1.6-2.3) mg/dL Total Bilirubin 0.4 (0.2-1.3) mg/dL AST 54 (17-59) U/L ALT 89 H (21-72) U/L Alkaline Phosphatase 75 (38-126) U/L Total Creatine Kinase 686 H (55-170) U/L CK-MB (Mass) 7.59 H (0.0-3.38) ng/mL Troponin I 112.0000 H* (0.00-0.120) ng/mL Total Protein 6.3 (6.3-8.3) g/dL Albumin 3.4 L (3.5-5.0) g/dL Globulin 2.9 (2.2-3.9) gm/dL Albumin/Globulin Ratio 1.2 (1.0-2.1) Arterial Blood Potassium (3.6-5.2) mmol/L Anti-Mitochondrial Ab (Negative) 01/21/18 01/21/18 01/21/18 Range/Units 09:54 07:15 06:19 WBC (4.8-10.8) K/uL RBC (4.40-5.90) Mil/uL Hgb (12.0-18.0) g/dL Hct (35.0-51.0) % MCV (80.0-94.0) fL MCH (27.0-31.0) pg MCHC (33.0-37.0) g/dL RDW (11.5-14.5) % Plt Count (130-400) K/uL MPV (7.2-11.7) fL Neut % (Auto) (50.0-75.0) % Lymph % (Auto) (20.0-40.0) % Arthur % (Auto) (0.0-10.0) % Eos % (Auto) (0.0-4.0) % Baso % (Auto) (0.0-2.0) % Neut # (Auto) (1.8-7.0) K/uL Lymph # (Auto) (1.0-4.3) K/uL Arthur # (Auto) (0.0-0.8) K/uL Eos # (Auto) (0.0-0.7) K/uL Baso # (Auto) (0.0-0.2) K/uL PT 11.8 (9.7-12.2) SECONDS INR 1.1 APTT 27 (21-34) SECONDS Puncture Site L/f pCO2 37 (35-45) mm/Hg pO2 30 L* (80-100) mm/Hg HCO3 20.1 L (21-28) mmol/L ABG pH 7.35 (7.35-7.45) ABG Total CO2 21.5 L (22-28) mmol/L ABG O2 Saturation 48.8 L (95-98) % ABG Base Excess -4.7 L (-2.0-3.0) mmol/L Vickey Test Na ABG Potassium 2.9 L (3.6-5.2) mmol/L Glucose 216 H (75-110) mg/dl Lactate 1.2 (0.7-2.1) mmol/L Liter Flow 4.0 Blood Gas Comments Venous blood as/ dr harley Crit Value Called To Dr milton harley Crit Value Called By Geoffrey de la rosa [facility] Crit Value Read Back Y Blood Gas Notified Time 1000 Sodium 140.0 (132-148) mmol/L Potassium (3.6-5.2) mmol/L Chloride 108.0 H (98-107) mmol/L Carbon Dioxide (22-30) mmol/L Anion Gap (10-20) BUN (9-20) mg/dL Creatinine (0.8-1.5) mg/dL Est GFR ( Amer) Est GFR (Non-Af Amer) POC Glucose (mg/dL) 278 H (65-110) mg/dL Random Glucose (75-110) mg/dL Calcium (8.6-10.4) mg/dl Phosphorus (2.5-4.5) mg/dL Magnesium (1.6-2.3) mg/dL Total Bilirubin (0.2-1.3) mg/dL AST (17-59) U/L ALT (21-72) U/L Alkaline Phosphatase (38-126) U/L Total Creatine Kinase (55-170) U/L CK-MB (Mass) (0.0-3.38) ng/mL Troponin I (0.00-0.120) ng/mL Total Protein (6.3-8.3) g/dL Albumin (3.5-5.0) g/dL Globulin (2.2-3.9) gm/dL Albumin/Globulin Ratio (1.0-2.1) Arterial Blood Potassium 2.9 L (3.6-5.2) mmol/L Anti-Mitochondrial Ab (Negative) 01/21/18 01/21/18 01/20/18 Range/Units 06:19 06:18 21:11 WBC 9.5 (4.8-10.8) K/uL RBC 4.33 L (4.40-5.90) Mil/uL Hgb 12.8 (12.0-18.0) g/dL Hct 38.1 (35.0-51.0) % MCV 88.0 (80.0-94.0) fL MCH 29.5 (27.0-31.0) pg MCHC 33.5 (33.0-37.0) g/dL RDW 15.9 H (11.5-14.5) % Plt Count 223 (130-400) K/uL MPV 10.9 (7.2-11.7) fL Neut % (Auto) 71.2 (50.0-75.0) % Lymph % (Auto) 18.8 L (20.0-40.0) % Arthur % (Auto) 9.2 (0.0-10.0) % Eos % (Auto) 0.3 (0.0-4.0) % Baso % (Auto) 0.5 (0.0-2.0) % Neut # (Auto) 6.7 (1.8-7.0) K/uL Lymph # (Auto) 1.8 (1.0-4.3) K/uL Arthur # (Auto) 0.9 H (0.0-0.8) K/uL Eos # (Auto) 0.0 (0.0-0.7) K/uL Baso # (Auto) 0.0 (0.0-0.2) K/uL PT (9.7-12.2) SECONDS INR APTT (21-34) SECONDS Puncture Site pCO2 (35-45) mm/Hg pO2 (80-100) mm/Hg HCO3 (21-28) mmol/L ABG pH (7.35-7.45) ABG Total CO2 (22-28) mmol/L ABG O2 Saturation (95-98) % ABG Base Excess (-2.0-3.0) mmol/L Vickey Test ABG Potassium (3.6-5.2) mmol/L Glucose (75-110) mg/dl Lactate (0.7-2.1) mmol/L Liter Flow Blood Gas Comments Crit Value Called To Crit Value Called By Crit Value Read Back Blood Gas Notified Time Sodium 136 (132-148) mmol/L Potassium 4.3 (3.6-5.2) mmol/L Chloride 94 L (98-107) mmol/L Carbon Dioxide 21 L (22-30) mmol/L Anion Gap 25 H (10-20) BUN 59 H (9-20) mg/dL Creatinine 8.6 H* D (0.8-1.5) mg/dL Est GFR ( Amer) 8 Est GFR (Non-Af Amer) 6 POC Glucose (mg/dL) 214 H (65-110) mg/dL Random Glucose 229 H (75-110) mg/dL Calcium 8.6 (8.6-10.4) mg/dl Phosphorus 7.7 H (2.5-4.5) mg/dL Magnesium 2.3 (1.6-2.3) mg/dL Total Bilirubin 0.7 (0.2-1.3) mg/dL AST 73 H D (17-59) U/L ALT 107 H (21-72) U/L Alkaline Phosphatase 94 (38-126) U/L Total Creatine Kinase (55-170) U/L CK-MB (Mass) (0.0-3.38) ng/mL Troponin I 143.0000 H* (0.00-0.120) ng/mL Total Protein 7.2 (6.3-8.3) g/dL Albumin 4.1 (3.5-5.0) g/dL Globulin 3.1 (2.2-3.9) gm/dL Albumin/Globulin Ratio 1.3 (1.0-2.1) Arterial Blood Potassium (3.6-5.2) mmol/L Anti-Mitochondrial Ab (Negative) 01/20/18 01/18/18 Range/Units 16:08 08:07 WBC (4.8-10.8) K/uL RBC (4.40-5.90) Mil/uL Hgb (12.0-18.0) g/dL Hct (35.0-51.0) % MCV (80.0-94.0) fL MCH (27.0-31.0) pg MCHC (33.0-37.0) g/dL RDW (11.5-14.5) % Plt Count (130-400) K/uL MPV (7.2-11.7) fL Neut % (Auto) (50.0-75.0) % Lymph % (Auto) (20.0-40.0) % Arthur % (Auto) (0.0-10.0) % Eos % (Auto) (0.0-4.0) % Baso % (Auto) (0.0-2.0) % Neut # (Auto) (1.8-7.0) K/uL Lymph # (Auto) (1.0-4.3) K/uL Arthur # (Auto) (0.0-0.8) K/uL Eos # (Auto) (0.0-0.7) K/uL Baso # (Auto) (0.0-0.2) K/uL PT (9.7-12.2) SECONDS INR APTT (21-34) SECONDS Puncture Site pCO2 (35-45) mm/Hg pO2 (80-100) mm/Hg HCO3 (21-28) mmol/L ABG pH (7.35-7.45) ABG Total CO2 (22-28) mmol/L ABG O2 Saturation (95-98) % ABG Base Excess (-2.0-3.0) mmol/L Vickey Test ABG Potassium (3.6-5.2) mmol/L Glucose (75-110) mg/dl Lactate (0.7-2.1) mmol/L Liter Flow Blood Gas Comments Crit Value Called To Crit Value Called By Crit Value Read Back Blood Gas Notified Time Sodium (132-148) mmol/L Potassium (3.6-5.2) mmol/L Chloride (98-107) mmol/L Carbon Dioxide (22-30) mmol/L Anion Gap (10-20) BUN (9-20) mg/dL Creatinine (0.8-1.5) mg/dL Est GFR ( Amer) Est GFR (Non-Af Amer) POC Glucose (mg/dL) 348 H (65-110) mg/dL Random Glucose (75-110) mg/dL Calcium (8.6-10.4) mg/dl Phosphorus (2.5-4.5) mg/dL Magnesium (1.6-2.3) mg/dL Total Bilirubin (0.2-1.3) mg/dL AST (17-59) U/L ALT (21-72) U/L Alkaline Phosphatase (38-126) U/L Total Creatine Kinase (55-170) U/L CK-MB (Mass) (0.0-3.38) ng/mL Troponin I (0.00-0.120) ng/mL Total Protein (6.3-8.3) g/dL Albumin (3.5-5.0) g/dL Globulin (2.2-3.9) gm/dL Albumin/Globulin Ratio (1.0-2.1) Arterial Blood Potassium (3.6-5.2) mmol/L Anti-Mitochondrial Ab Negative (Negative) Laboratory Results - last 24 hr 01/18/18 01/20/18 01/20/18 08:07 16:08 21:11 WBC RBC Hgb Hct MCV MCH MCHC RDW Plt Count MPV Neut % (Auto) Lymph % (Auto) Arthur % (Auto) Eos % (Auto) Baso % (Auto) Neut # (Auto) Lymph # (Auto) Arthur # (Auto) Eos # (Auto) Baso # (Auto) PT INR APTT Puncture Site pCO2 pO2 HCO3 ABG pH ABG Total CO2 ABG O2 Saturation ABG Base Excess Vickey Test ABG Potassium Glucose Lactate Liter Flow Blood Gas Comments Crit Value Called To Crit Value Called By Crit Value Read Back Blood Gas Notified Time Sodium Potassium Chloride Carbon Dioxide Anion Gap BUN Creatinine Est GFR ( Amer) Est GFR (Non-Af Amer) POC Glucose (mg/dL) 348 H 214 H Random Glucose Calcium Phosphorus Magnesium Total Bilirubin AST ALT Alkaline Phosphatase Total Creatine Kinase CK-MB (Mass) Troponin I Total Protein Albumin Globulin Albumin/Globulin Ratio Arterial Blood Potassium Anti-Mitochondrial Ab Negative 01/21/18 01/21/18 01/21/18 06:18 06:19 06:19 WBC 9.5 RBC 4.33 L Hgb 12.8 Hct 38.1 MCV 88.0 MCH 29.5 MCHC 33.5 RDW 15.9 H Plt Count 223 MPV 10.9 Neut % (Auto) 71.2 Lymph % (Auto) 18.8 L Arthur % (Auto) 9.2 Eos % (Auto) 0.3 Baso % (Auto) 0.5 Neut # (Auto) 6.7 Lymph # (Auto) 1.8 Arthur # (Auto) 0.9 H Eos # (Auto) 0.0 Baso # (Auto) 0.0 PT 11.8 INR 1.1 APTT 27 Puncture Site pCO2 pO2 HCO3 ABG pH ABG Total CO2 ABG O2 Saturation ABG Base Excess Vickey Test ABG Potassium Glucose Lactate Liter Flow Blood Gas Comments Crit Value Called To Crit Value Called By Crit Value Read Back Blood Gas Notified Time Sodium 136 Potassium 4.3 Chloride 94 L Carbon Dioxide 21 L Anion Gap 25 H BUN 59 H Creatinine 8.6 H* D Est GFR ( Amer) 8 Est GFR (Non-Af Amer) 6 POC Glucose (mg/dL) Random Glucose 229 H Calcium 8.6 Phosphorus 7.7 H Magnesium 2.3 Total Bilirubin 0.7 AST 73 H D ALT 107 H Alkaline Phosphatase 94 Total Creatine Kinase CK-MB (Mass) Troponin I 143.0000 H* Total Protein 7.2 Albumin 4.1 Globulin 3.1 Albumin/Globulin Ratio 1.3 Arterial Blood Potassium Anti-Mitochondrial Ab 01/21/18 01/21/18 01/21/18 07:15 09:54 10:15 WBC 7.4 RBC 4.10 L Hgb 11.8 L Hct 35.7 MCV 87.2 MCH 28.7 MCHC 33.0 RDW 15.6 H Plt Count 195 MPV 10.4 Neut % (Auto) 77.3 H Lymph % (Auto) 13.0 L Arthur % (Auto) 8.8 Eos % (Auto) 0.3 Baso % (Auto) 0.6 Neut # (Auto) 5.7 Lymph # (Auto) 1.0 Arthur # (Auto) 0.7 Eos # (Auto) 0.0 Baso # (Auto) 0.0 PT INR APTT Puncture Site L/f pCO2 37 pO2 30 L* HCO3 20.1 L ABG pH 7.35 ABG Total CO2 21.5 L ABG O2 Saturation 48.8 L ABG Base Excess -4.7 L Vickey Test Na ABG Potassium 2.9 L Glucose 216 H Lactate 1.2 Liter Flow 4.0 Blood Gas Comments Venous blood as/ dr harley Crit Value Called To Dr milton harley Crit Value Called By Geoffrey de la rosa [facility] Crit Value Read Back Y Blood Gas Notified Time 1000 Sodium 140.0 Potassium Chloride 108.0 H Carbon Dioxide Anion Gap BUN Creatinine Est GFR ( Amer) Est GFR (Non-Af Amer) POC Glucose (mg/dL) 278 H Random Glucose Calcium Phosphorus Magnesium Total Bilirubin AST ALT Alkaline Phosphatase Total Creatine Kinase CK-MB (Mass) Troponin I Total Protein Albumin Globulin Albumin/Globulin Ratio Arterial Blood Potassium 2.9 L Anti-Mitochondrial Ab 01/21/18 01/21/18 10:15 11:58 WBC RBC Hgb Hct MCV MCH MCHC RDW Plt Count MPV Neut % (Auto) Lymph % (Auto) Arthur % (Auto) Eos % (Auto) Baso % (Auto) Neut # (Auto) Lymph # (Auto) Arthur # (Auto) Eos # (Auto) Baso # (Auto) PT INR APTT Puncture Site pCO2 pO2 HCO3 ABG pH ABG Total CO2 ABG O2 Saturation ABG Base Excess Vickey Test ABG Potassium Glucose Lactate Liter Flow Blood Gas Comments Crit Value Called To Crit Value Called By Crit Value Read Back Blood Gas Notified Time Sodium 132 Potassium 4.2 Chloride 95 L Carbon Dioxide 23 Anion Gap 19 BUN 57 H Creatinine 8.0 H* Est GFR ( Amer) 8 Est GFR (Non-Af Amer) 7 POC Glucose (mg/dL) 348 H Random Glucose 299 H Calcium 8.1 L Phosphorus 7.1 H Magnesium 2.3 Total Bilirubin 0.4 AST 54 ALT 89 H Alkaline Phosphatase 75 Total Creatine Kinase 686 H CK-MB (Mass) 7.59 H Troponin I 112.0000 H* Total Protein 6.3 Albumin 3.4 L Globulin 2.9 Albumin/Globulin Ratio 1.2 Arterial Blood Potassium Anti-Mitochondrial Ab EKG/Cardiology Studies: Cardiology / EKG Studies 01/21/18 05:52 EKG [ELECTROCARDIOGRAM] Stat Comment: Mode Of Transportation: Reason For Exam: Rapid Heart Rate 01/21/18 06:21 EKG [ELECTROCARDIOGRAM] Routine Comment: Mode Of Transportation: Reason For Exam: Follow up 01/21/18 10:06 EKG [ELECTROCARDIOGRAM] Stat Comment: Mode Of Transportation: Reason For Exam: vtach Fingerstick Blood Sugar Results: 348 Critical Care Progress Note - Nutrition Nutrition: Nutrition Category Date Time Status NPO Diet [DIET] Diets 01/22/18 Breakfast Active Renal Diet [DIET] Diets 01/20/18 Lunch Active Assessment/Plan - Assessment and Plan (Free Text) Assessment: This is a 57 year old male with PMHx of HTN, CAD with CABG, s/p 3 stents, DE x 3 , T2DM on insulin with diabetic neuropathy and gastroparesis,history of diabetic foot infections S/P amputation of the 5 digits of his right foot, ESRD on HD TTS with Right AVF, hx of permacath related infection with psuedomonas and septic embolic (rule out endocarditis via FLAKITO), patient was admitted to [facility] on 01/17, as a Code blue s/p 3 rounds of epi. Patient is intubated on Levophed and Dobutamine s/p cardiac catherization - which showed no obstruction of present graphs, LVEF 25-30%. Patient is transferred to [facility] for dialysis. Extubated 01/19/18. Patient's code status was re-evaluated. As of 10am 01/21/18 patient is FULL CODE; Palliative care confirmed with patient and Mr. Geoffrey Oro, patient's surrogate decision maker - patient is now FULL CODE. Patient is for PPM/AICD in [facility] 01/22/18 2pm. Will not return to [facility]. 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 No acute intracranial abnormality. - Aspiration precautions Cardio: A: Cardiogenic Shock -RESOLVED - ECHO (done at [facility]): LVEF 30%, systolic function severely impaired A: Complete heart block - Pacing wire placed during cardiac cath, removed - Patient is for PPM/AICD in [facility] 01/22/18 2pm A: HF with rEF with LVEF 30% A: Hx HTN, HLD - Lopressor 25mg PO BID - Held Crestor 2/2 transaminitis A: CAD with CABG, s/p 3 stents, DE x 3 - ASA Pulm: A: Repiratory Failure - Extubated 01/19 GI: A: Transaminitis - downtrending - As per GI- likely 2/ 2 ischemic hepatopathy - Viral studies negative and autoimmune studies ordered - Abdominal US: no acute findings - Held Crestor A: Chronic gastritis, nonbleeding esophagel ulcers - Prior EGD 04/06/2017 showing nonbleeding esophageal ulcers, LAGC esophagitis, and chronic gastritis - Protonix Renal: A: ESRD on HD TTS with Right AVF, making urine -- Dr. Wilson consulted - Patient is noncompliant, attends dialysis 1 out of 3 weekly sessions - [facility] - Received 100 MEQ bicarb Endo: A: T2DM on Insulin - Accuchecks, ISS - Q6H - HgbA1c 7.6 ID: A: LLL Pneumonia vs Effusion - Likely 2/2 cardiac arrest - Lactate 4.2 -> 1.0 - Procal high - On Cefepime, started Azithro - F/U turner cultures - negative to date (done at [facility]) - f/u pneumonia work up Heme/ Onc: A: Anemia of Chronic Disease - Procrit, Phoslo Prophylaxis: - Protonix - SCDs, Hep Q8H - Left Femoral TLC 01/18/18 - removed 01/20 - CODE STATUS: POLST:DNR/DNI (prior code status) - patient was intubated out in the field by EMS Disposition: Disposition: As of 10am 01/21/18 patient is FULL CODE; Palliative care confirmed with patient and Mr. Geoffrey Oro, patient's surrogate decision maker - patient is now FULL CODE. Patient is for PPM/AICD in [facility] 01/22/18 2pm. Will not return to [facility]. DW Dr. Velvet Harley, Annel Fraser DO, PGY-1 <Velvet Harley M - Last Filed: 01/21/18 16:56> CCU Objective - Vital Signs / Intake & Output Vital Signs (Last 4 hours): Vital Signs Temp Pulse Resp BP Pulse Ox 01/21/18 16:02 74 11 L 121/49 L 01/21/18 16:00 98.3 F 74 16 01/21/18 15:50 73 14 01/21/18 15:46 74 16 120/55 L 01/21/18 15:40 73 15 01/21/18 15:32 75 17 113/54 L 01/21/18 15:30 74 18 01/21/18 15:20 72 15 01/21/18 15:16 70 12 133/70 01/21/18 15:10 75 11 L 01/21/18 15:01 72 31 H 137/66 01/21/18 15:00 71 12 01/21/18 14:50 72 20 01/21/18 14:47 70 16 116/31 L 01/21/18 14:40 73 10 L 01/21/18 14:33 73 22 116/67 01/21/18 14:30 70 10 L 94 L 01/21/18 14:20 68 26 H 91 L 01/21/18 14:17 68 16 127/34 L 01/21/18 14:10 65 15 95 01/21/18 14:02 68 12 113/44 L 76 L 01/21/18 14:00 68 19 01/21/18 13:50 69 25 H 01/21/18 13:47 68 13 119/60 01/21/18 13:40 69 20 96 01/21/18 13:31 69 13 130/63 99 01/21/18 13:30 70 21 93 L 01/21/18 13:20 71 10 L 96 01/21/18 13:16 71 22 149/80 96 01/21/18 13:15 71 14 96 01/21/18 13:10 72 19 96 01/21/18 13:01 73 15 150/81 97 01/21/18 13:00 72 16 96 Intake and Output (Last 8hrs): Intake & Output 01/21/18 01/21/18 01/21/18 06:59 14:59 22:59 Intake Total 360 831.93 112 Output Total 350 0 Balance 10 831.93 112 Weight 196 lb 10 oz Intake: Intake, IV Amount 499.93 0 Left Forearm 200 Left Wrist 299.93 0 Oral 360 332 112 Output: Urine 350 0 Urine, Voided 350 0 Other: # Voids Urine, Voided 2 # Bowel Movements 1 - Medications Active Medications: Active Medications Generic Name Dose Route Start Last Admin Trade Name Freq PRN Reason Stop Dose Admin Acetaminophen 650 mg 01/18/18 16:37 Tylenol 650 Mg Supp MO Q6H PRN Fever >100.4 F Acetaminophen 650 mg 01/20/18 10:06 01/20/18 10:15 Tylenol 325mg Tab PO 650 mg Q6 PRN Administration Pain, Mild (1-3) Aspirin 81 mg 01/19/18 10:00 01/21/18 08:59 Aspirin Chewable PO 81 mg DAILY DESTINI Administration Calcium Acetate 1,334 mg 01/19/18 09:45 01/21/18 16:22 Phoslo PO 1,334 mg TIDCC DESTINI Administration Heparin Sodium (Porcine) 5,000 units 01/18/18 22:00 01/21/18 12:59 Heparin SC 5,000 units Q8 DESTINI Administration Cefepime HCl 1 gm in 50 mls @ 100 mls/hr 01/19/18 10:00 01/21/18 10:18 Maxipime Iv 1 Gm Premix IVPB 100 mls/hr Q24H DESTINI Administration Protocol Insulin Human Regular 0 unit 01/19/18 16:30 01/21/18 16:21 Novolin R SC 5 u ACHS DESTINI Administration Protocol Metoprolol Tartrate 12.5 mg 01/21/18 16:31 Lopressor PO BID DESTINI Pantoprazole Sodium 40 mg 01/19/18 10:00 01/21/18 08:59 Protonix Inj IVP 40 mg DAILY DESTINI Administration - Patient Studies Lab Studies: Lab Studies 01/21/18 01/21/18 01/21/18 Range/Units 16:04 11:58 10:15 WBC (4.8-10.8) K/uL RBC (4.40-5.90) Mil/uL Hgb (12.0-18.0) g/dL Hct (35.0-51.0) % MCV (80.0-94.0) fL MCH (27.0-31.0) pg MCHC (33.0-37.0) g/dL RDW (11.5-14.5) % Plt Count (130-400) K/uL MPV (7.2-11.7) fL Neut % (Auto) (50.0-75.0) % Lymph % (Auto) (20.0-40.0) % Arthur % (Auto) (0.0-10.0) % Eos % (Auto) (0.0-4.0) % Baso % (Auto) (0.0-2.0) % Neut # (Auto) (1.8-7.0) K/uL Lymph # (Auto) (1.0-4.3) K/uL Arthur # (Auto) (0.0-0.8) K/uL Eos # (Auto) (0.0-0.7) K/uL Baso # (Auto) (0.0-0.2) K/uL PT (9.7-12.2) SECONDS INR APTT (21-34) SECONDS Puncture Site pCO2 (35-45) mm/Hg pO2 (80-100) mm/Hg HCO3 (21-28) mmol/L ABG pH (7.35-7.45) ABG Total CO2 (22-28) mmol/L ABG O2 Saturation (95-98) % ABG Base Excess (-2.0-3.0) mmol/L Vickey Test ABG Potassium (3.6-5.2) mmol/L Glucose (75-110) mg/dl Lactate (0.7-2.1) mmol/L Liter Flow Blood Gas Comments Crit Value Called To Crit Value Called By Crit Value Read Back Blood Gas Notified Time Sodium 132 (132-148) mmol/L Potassium 4.2 (3.6-5.2) mmol/L Chloride 95 L (98-107) mmol/L Carbon Dioxide 23 (22-30) mmol/L Anion Gap 19 (10-20) BUN 57 H (9-20) mg/dL Creatinine 8.0 H* (0.8-1.5) mg/dL Est GFR ( Amer) 8 Est GFR (Non-Af Amer) 7 POC Glucose (mg/dL) 379 H 348 H (65-110) mg/dL Random Glucose 299 H (75-110) mg/dL Calcium 8.1 L (8.6-10.4) mg/dl Phosphorus 7.1 H (2.5-4.5) mg/dL Magnesium 2.3 (1.6-2.3) mg/dL Total Bilirubin 0.4 (0.2-1.3) mg/dL AST 54 (17-59) U/L ALT 89 H (21-72) U/L Alkaline Phosphatase 75 (38-126) U/L Total Creatine Kinase 686 H (55-170) U/L CK-MB (Mass) 7.59 H (0.0-3.38) ng/mL Troponin I 112.0000 H* (0.00-0.120) ng/mL Total Protein 6.3 (6.3-8.3) g/dL Albumin 3.4 L (3.5-5.0) g/dL Globulin 2.9 (2.2-3.9) gm/dL Albumin/Globulin Ratio 1.2 (1.0-2.1) Arterial Blood Potassium (3.6-5.2) mmol/L 01/21/18 01/21/18 01/21/18 Range/Units 10:15 09:54 07:15 WBC 7.4 (4.8-10.8) K/uL RBC 4.10 L (4.40-5.90) Mil/uL Hgb 11.8 L (12.0-18.0) g/dL Hct 35.7 (35.0-51.0) % MCV 87.2 (80.0-94.0) fL MCH 28.7 (27.0-31.0) pg MCHC 33.0 (33.0-37.0) g/dL RDW 15.6 H (11.5-14.5) % Plt Count 195 (130-400) K/uL MPV 10.4 (7.2-11.7) fL Neut % (Auto) 77.3 H (50.0-75.0) % Lymph % (Auto) 13.0 L (20.0-40.0) % Arthur % (Auto) 8.8 (0.0-10.0) % Eos % (Auto) 0.3 (0.0-4.0) % Baso % (Auto) 0.6 (0.0-2.0) % Neut # (Auto) 5.7 (1.8-7.0) K/uL Lymph # (Auto) 1.0 (1.0-4.3) K/uL Arthur # (Auto) 0.7 (0.0-0.8) K/uL Eos # (Auto) 0.0 (0.0-0.7) K/uL Baso # (Auto) 0.0 (0.0-0.2) K/uL PT (9.7-12.2) SECONDS INR APTT (21-34) SECONDS Puncture Site L/f pCO2 37 (35-45) mm/Hg pO2 30 L* (80-100) mm/Hg HCO3 20.1 L (21-28) mmol/L ABG pH 7.35 (7.35-7.45) ABG Total CO2 21.5 L (22-28) mmol/L ABG O2 Saturation 48.8 L (95-98) % ABG Base Excess -4.7 L (-2.0-3.0) mmol/L Vickey Test Na ABG Potassium 2.9 L (3.6-5.2) mmol/L Glucose 216 H (75-110) mg/dl Lactate 1.2 (0.7-2.1) mmol/L Liter Flow 4.0 Blood Gas Comments Venous blood as/ dr harley Crit Value Called To Dr milton harley Crit Value Called By Geoffrey de la rosa [facility] Crit Value Read Back Y Blood Gas Notified Time 1000 Sodium 140.0 (132-148) mmol/L Potassium (3.6-5.2) mmol/L Chloride 108.0 H (98-107) mmol/L Carbon Dioxide (22-30) mmol/L Anion Gap (10-20) BUN (9-20) mg/dL Creatinine (0.8-1.5) mg/dL Est GFR ( Amer) Est GFR (Non-Af Amer) POC Glucose (mg/dL) 278 H (65-110) mg/dL Random Glucose (75-110) mg/dL Calcium (8.6-10.4) mg/dl Phosphorus (2.5-4.5) mg/dL Magnesium (1.6-2.3) mg/dL Total Bilirubin (0.2-1.3) mg/dL AST (17-59) U/L ALT (21-72) U/L Alkaline Phosphatase (38-126) U/L Total Creatine Kinase (55-170) U/L CK-MB (Mass) (0.0-3.38) ng/mL Troponin I (0.00-0.120) ng/mL Total Protein (6.3-8.3) g/dL Albumin (3.5-5.0) g/dL Globulin (2.2-3.9) gm/dL Albumin/Globulin Ratio (1.0-2.1) Arterial Blood Potassium 2.9 L (3.6-5.2) mmol/L 01/21/18 01/21/18 01/21/18 Range/Units 06:19 06:19 06:18 WBC 9.5 (4.8-10.8) K/uL RBC 4.33 L (4.40-5.90) Mil/uL Hgb 12.8 (12.0-18.0) g/dL Hct 38.1 (35.0-51.0) % MCV 88.0 (80.0-94.0) fL MCH 29.5 (27.0-31.0) pg MCHC 33.5 (33.0-37.0) g/dL RDW 15.9 H (11.5-14.5) % Plt Count 223 (130-400) K/uL MPV 10.9 (7.2-11.7) fL Neut % (Auto) 71.2 (50.0-75.0) % Lymph % (Auto) 18.8 L (20.0-40.0) % Arthur % (Auto) 9.2 (0.0-10.0) % Eos % (Auto) 0.3 (0.0-4.0) % Baso % (Auto) 0.5 (0.0-2.0) % Neut # (Auto) 6.7 (1.8-7.0) K/uL Lymph # (Auto) 1.8 (1.0-4.3) K/uL Arthur # (Auto) 0.9 H (0.0-0.8) K/uL Eos # (Auto) 0.0 (0.0-0.7) K/uL Baso # (Auto) 0.0 (0.0-0.2) K/uL PT 11.8 (9.7-12.2) SECONDS INR 1.1 APTT 27 (21-34) SECONDS Puncture Site pCO2 (35-45) mm/Hg pO2 (80-100) mm/Hg HCO3 (21-28) mmol/L ABG pH (7.35-7.45) ABG Total CO2 (22-28) mmol/L ABG O2 Saturation (95-98) % ABG Base Excess (-2.0-3.0) mmol/L Vickey Test ABG Potassium (3.6-5.2) mmol/L Glucose (75-110) mg/dl Lactate (0.7-2.1) mmol/L Liter Flow Blood Gas Comments Crit Value Called To Crit Value Called By Crit Value Read Back Blood Gas Notified Time Sodium 136 (132-148) mmol/L Potassium 4.3 (3.6-5.2) mmol/L Chloride 94 L (98-107) mmol/L Carbon Dioxide 21 L (22-30) mmol/L Anion Gap 25 H (10-20) BUN 59 H (9-20) mg/dL Creatinine 8.6 H* D (0.8-1.5) mg/dL Est GFR ( Amer) 8 Est GFR (Non-Af Amer) 6 POC Glucose (mg/dL) (65-110) mg/dL Random Glucose 229 H (75-110) mg/dL Calcium 8.6 (8.6-10.4) mg/dl Phosphorus 7.7 H (2.5-4.5) mg/dL Magnesium 2.3 (1.6-2.3) mg/dL Total Bilirubin 0.7 (0.2-1.3) mg/dL AST 73 H D (17-59) U/L ALT 107 H (21-72) U/L Alkaline Phosphatase 94 (38-126) U/L Total Creatine Kinase (55-170) U/L CK-MB (Mass) (0.0-3.38) ng/mL Troponin I 143.0000 H* (0.00-0.120) ng/mL Total Protein 7.2 (6.3-8.3) g/dL Albumin 4.1 (3.5-5.0) g/dL Globulin 3.1 (2.2-3.9) gm/dL Albumin/Globulin Ratio 1.3 (1.0-2.1) Arterial Blood Potassium (3.6-5.2) mmol/L 06/27/18 06/27/18 Range/Units 21:11 16:08 WBC (4.8-10.8) K/uL RBC (4.40-5.90) Mil/uL Hgb (12.0-18.0) g/dL Hct (35.0-51.0) % MCV (80.0-94.0) fL MCH (27.0-31.0) pg MCHC (33.0-37.0) g/dL RDW (11.5-14.5) % Plt Count (130-400) K/uL MPV (7.2-11.7) fL Neut % (Auto) (50.0-75.0) % Lymph % (Auto) (20.0-40.0) % Arthur % (Auto) (0.0-10.0) % Eos % (Auto) (0.0-4.0) % Baso % (Auto) (0.0-2.0) % Neut # (Auto) (1.8-7.0) K/uL Lymph # (Auto) (1.0-4.3) K/uL Arthur # (Auto) (0.0-0.8) K/uL Eos # (Auto) (0.0-0.7) K/uL Baso # (Auto) (0.0-0.2) K/uL PT (9.7-12.2) SECONDS INR APTT (21-34) SECONDS Puncture Site pCO2 (35-45) mm/Hg pO2 (80-100) mm/Hg HCO3 (21-28) mmol/L ABG pH (7.35-7.45) ABG Total CO2 (22-28) mmol/L ABG O2 Saturation (95-98) % ABG Base Excess (-2.0-3.0) mmol/L Vickey Test ABG Potassium (3.6-5.2) mmol/L Glucose (75-110) mg/dl Lactate (0.7-2.1) mmol/L Liter Flow Blood Gas Comments Crit Value Called To Crit Value Called By Crit Value Read Back Blood Gas Notified Time Sodium (132-148) mmol/L Potassium (3.6-5.2) mmol/L Chloride (98-107) mmol/L Carbon Dioxide (22-30) mmol/L Anion Gap (10-20) BUN (9-20) mg/dL Creatinine (0.8-1.5) mg/dL Est GFR ( Amer) Est GFR (Non-Af Amer) POC Glucose (mg/dL) 214 H 348 H (65-110) mg/dL Random Glucose (75-110) mg/dL Calcium (8.6-10.4) mg/dl Phosphorus (2.5-4.5) mg/dL Magnesium (1.6-2.3) mg/dL Total Bilirubin (0.2-1.3) mg/dL AST (17-59) U/L ALT (21-72) U/L Alkaline Phosphatase (38-126) U/L Total Creatine Kinase (55-170) U/L CK-MB (Mass) (0.0-3.38) ng/mL Troponin I (0.00-0.120) ng/mL Total Protein (6.3-8.3) g/dL Albumin (3.5-5.0) g/dL Globulin (2.2-3.9) gm/dL Albumin/Globulin Ratio (1.0-2.1) Arterial Blood Potassium (3.6-5.2) mmol/L Laboratory Results - last 24 hr 01/20/18 01/20/18 01/21/18 16:08 21:11 06:18 WBC 9.5 RBC 4.33 L Hgb 12.8 Hct 38.1 MCV 88.0 MCH 29.5 MCHC 33.5 RDW 15.9 H Plt Count 223 MPV 10.9 Neut % (Auto) 71.2 Lymph % (Auto) 18.8 L Arthur % (Auto) 9.2 Eos % (Auto) 0.3 Baso % (Auto) 0.5 Neut # (Auto) 6.7 Lymph # (Auto) 1.8 Arthur # (Auto) 0.9 H Eos # (Auto) 0.0 Baso # (Auto) 0.0 PT INR APTT Puncture Site pCO2 pO2 HCO3 ABG pH ABG Total CO2 ABG O2 Saturation ABG Base Excess Vickey Test ABG Potassium Glucose Lactate Liter Flow Blood Gas Comments Crit Value Called To Crit Value Called By Crit Value Read Back Blood Gas Notified Time Sodium Potassium Chloride Carbon Dioxide Anion Gap BUN Creatinine Est GFR ( Amer) Est GFR (Non-Af Amer) POC Glucose (mg/dL) 348 H 214 H Random Glucose Calcium Phosphorus Magnesium Total Bilirubin AST ALT Alkaline Phosphatase Total Creatine Kinase CK-MB (Mass) Troponin I Total Protein Albumin Globulin Albumin/Globulin Ratio Arterial Blood Potassium 01/21/18 01/21/18 01/21/18 06:19 06:19 07:15 WBC RBC Hgb Hct MCV MCH MCHC RDW Plt Count MPV Neut % (Auto) Lymph % (Auto) Arthur % (Auto) Eos % (Auto) Baso % (Auto) Neut # (Auto) Lymph # (Auto) Arthur # (Auto) Eos # (Auto) Baso # (Auto) PT 11.8 INR 1.1 APTT 27 Puncture Site pCO2 pO2 HCO3 ABG pH ABG Total CO2 ABG O2 Saturation ABG Base Excess Vickey Test ABG Potassium Glucose Lactate Liter Flow Blood Gas Comments Crit Value Called To Crit Value Called By Crit Value Read Back Blood Gas Notified Time Sodium 136 Potassium 4.3 Chloride 94 L Carbon Dioxide 21 L Anion Gap 25 H BUN 59 H Creatinine 8.6 H* D Est GFR ( Amer) 8 Est GFR (Non-Af Amer) 6 POC Glucose (mg/dL) 278 H Random Glucose 229 H Calcium 8.6 Phosphorus 7.7 H Magnesium 2.3 Total Bilirubin 0.7 AST 73 H D ALT 107 H Alkaline Phosphatase 94 Total Creatine Kinase CK-MB (Mass) Troponin I 143.0000 H* Total Protein 7.2 Albumin 4.1 Globulin 3.1 Albumin/Globulin Ratio 1.3 Arterial Blood Potassium 01/21/18 01/21/18 01/21/18 09:54 10:15 10:15 WBC 7.4 RBC 4.10 L Hgb 11.8 L Hct 35.7 MCV 87.2 MCH 28.7 MCHC 33.0 RDW 15.6 H Plt Count 195 MPV 10.4 Neut % (Auto) 77.3 H Lymph % (Auto) 13.0 L Arthur % (Auto) 8.8 Eos % (Auto) 0.3 Baso % (Auto) 0.6 Neut # (Auto) 5.7 Lymph # (Auto) 1.0 Arthur # (Auto) 0.7 Eos # (Auto) 0.0 Baso # (Auto) 0.0 PT INR APTT Puncture Site L/f pCO2 37 pO2 30 L* HCO3 20.1 L ABG pH 7.35 ABG Total CO2 21.5 L ABG O2 Saturation 48.8 L ABG Base Excess -4.7 L Vickey Test Na ABG Potassium 2.9 L Glucose 216 H Lactate 1.2 Liter Flow 4.0 Blood Gas Comments Venous blood as/ dr harley Crit Value Called To Dr milton harley Crit Value Called By Geoffrey de la rosa [facility] Crit Value Read Back Y Blood Gas Notified Time 1000 Sodium 140.0 132 Potassium 4.2 Chloride 108.0 H 95 L Carbon Dioxide 23 Anion Gap 19 BUN 57 H Creatinine 8.0 H* Est GFR ( Amer) 8 Est GFR (Non-Af Amer) 7 POC Glucose (mg/dL) Random Glucose 299 H Calcium 8.1 L Phosphorus 7.1 H Magnesium 2.3 Total Bilirubin 0.4 AST 54 ALT 89 H Alkaline Phosphatase 75 Total Creatine Kinase 686 H CK-MB (Mass) 7.59 H Troponin I 112.0000 H* Total Protein 6.3 Albumin 3.4 L Globulin 2.9 Albumin/Globulin Ratio 1.2 Arterial Blood Potassium 2.9 L 01/21/18 01/21/18 11:58 16:04 WBC RBC Hgb Hct MCV MCH MCHC RDW Plt Count MPV Neut % (Auto) Lymph % (Auto) Arthur % (Auto) Eos % (Auto) Baso % (Auto) Neut # (Auto) Lymph # (Auto) Arthur # (Auto) Eos # (Auto) Baso # (Auto) PT INR APTT Puncture Site pCO2 pO2 HCO3 ABG pH ABG Total CO2 ABG O2 Saturation ABG Base Excess Vickey Test ABG Potassium Glucose Lactate Liter Flow Blood Gas Comments Crit Value Called To Crit Value Called By Crit Value Read Back Blood Gas Notified Time Sodium Potassium Chloride Carbon Dioxide Anion Gap BUN Creatinine Est GFR ( Amer) Est GFR (Non-Af Amer) POC Glucose (mg/dL) 348 H 379 H Random Glucose Calcium Phosphorus Magnesium Total Bilirubin AST ALT Alkaline Phosphatase Total Creatine Kinase CK-MB (Mass) Troponin I Total Protein Albumin Globulin Albumin/Globulin Ratio Arterial Blood Potassium EKG/Cardiology Studies: Cardiology / EKG Studies 01/21/18 05:52 EKG [ELECTROCARDIOGRAM] Stat Comment: Mode Of Transportation: Reason For Exam: Rapid Heart Rate 01/21/18 06:21 EKG [ELECTROCARDIOGRAM] Routine Comment: Mode Of Transportation: Reason For Exam: Follow up 01/21/18 10:06 EKG [ELECTROCARDIOGRAM] Stat Comment: Mode Of Transportation: Reason For Exam: on license of [facility] Critical Care Progress Note - Nutrition Nutrition: Nutrition Category Date Time Status NPO Diet [DIET] Diets 01/22/18 Breakfast Active Renal Diet [DIET] Diets 01/20/18 Lunch Active Assessment/Plan - Assessment and Plan (Free Text) Plan: Patient seen and examined at bedside. PAtietn with underlyign severe systolic heart failure and at risk of V-tach. -will benefit from AV irineo blokcer -continue acei as BP tolerates -continue asa, statin -dvt ppx heparin sq -pud ppx protonix -Patient remains hemodynamically stable -pending AICD -goals of care: full code. -external vest until AICD placed - Date & Time Date: 01/21/18 Time: 16:56
--- NOTE | 2018-01-21 14:21 | CP.PCM.PN ---
Subjective - Date & Time of Evaluation Date of Evaluation: 01/21/18 Time of Evaluation: 14:19 - Subjective Subjective: Nephrology Consultation Note: Assessment: critical NSTEMI, cardiac arrest, cardiogenic shock, CHF lvef 30% lactic acidosis, hyperkalemia hx of esophageal ulceration, gastroparesis Diabetic chronic Kidney Disease (E11.22) Hypertensive Chronic Kidney Disease (I12.0) End stage renal disease (N18.6) dependence on hemodialysis (Z99.2) (TTS) Anemia (D64.9), Hyperphosphatemia (E83.39), Secondary Hyperparathyroidism (E21.1 ), HTN (I12.0) CAD s/p CABG chronic urine retention Plan: HD today as ordered per TTS schedule. continue with Nephrovite 1 tab/day. anemia monitor lytes reviewed maintain hemodynamic stable. Glycemic control, Dialysis consistent diet added phos binders. pt non-compliant to binders as outpt Physical Examination: General Appearance ill appearing Vitals reviewed and noted as below Head; Atraumatic, normocephalic ENT: normal mucosa EYES: Eye muscles and extraocular movement intact. Sclera is anicteric. Neck; supple no lymphadenopathy, no thyromegaly or bruit Lungs: Normal respiratory rate/effort. Breath sounds bilateral equal and with rales+ Heart: Normal rate. s1s2 normal. No rub or gallop. Extremities: no edema. No varicose veins. 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 Normal turgor. No rash. Abdomen: Abdomen is soft. Bowel sounds +. There is no abdominal tenderness, no guarding/rigidity or organomegaly Psych: Ao x 3, normal affect mood MSK: no joint tenderness or swelling. Access: patent AVF Objective - Vital Signs/Intake and Output Vital Signs (last 24 hours): Temp Pulse Resp BP Pulse Ox 98.3 F 71 14 149/80 96 01/21/18 12:00 01/21/18 13:15 01/21/18 13:15 01/21/18 13:16 01/21/18 13:15 Intake and Output: 01/21/18 01/21/18 06:59 18:59 Intake Total 480 831.93 Output Total 350 0 Balance 130 831.93 - Medications Medications: Current Medications Acetaminophen (Tylenol 650 Mg Supp) 650 mg MA Q6H PRN PRN Reason: Fever >100.4 F Acetaminophen (Tylenol 325mg Tab) 650 mg PO Q6 PRN PRN Reason: Pain, Mild (1-3) Last Admin: 01/20/18 10:15 Dose: 650 mg Aspirin (Aspirin Chewable) 81 mg PO DAILY [facility] Last Admin: 01/21/18 08:59 Dose: 81 mg Calcium Acetate (Phoslo) 1,334 mg PO TIDCC [facility] Last Admin: 01/21/18 12:56 Dose: 1,334 mg Heparin Sodium (Porcine) (Heparin) 5,000 units SC Q8 [facility] Last Admin: 01/21/18 12:59 Dose: 5,000 units Cefepime HCl (Maxipime Iv 1 Gm Premix) 1 gm in 50 mls @ 100 mls/hr IVPB Q24H [facility] PRN Reason: Protocol Last Admin: 01/21/18 10:18 Dose: 100 mls/hr Insulin Human Regular (Novolin R) 0 unit SC ACHS [facility] PRN Reason: Protocol Last Admin: 01/21/18 12:56 Dose: 4 u Metoprolol Tartrate (Lopressor) 25 mg PO BID [facility] Last Admin: 01/21/18 10:16 Dose: 25 mg Pantoprazole Sodium (Protonix Inj) 40 mg IVP DAILY [facility] Last Admin: 01/21/18 08:59 Dose: 40 mg - Labs Labs: 01/21/18 10:15 01/21/18 10:15 PT 11.8 SECONDS (9.7-12.2) 01/21/18 06:19 INR 1.1 01/21/18 06:19 APTT 27 SECONDS (21-34) 01/21/18 06:19
--- NOTE | 2018-01-21 19:13 | CP.PCM.PN ---
Subjective - Date & Time of Evaluation Date of Evaluation: 01/21/18 Time of Evaluation: 19:00 - Subjective Subjective: Hospitalist Progress Note Patient was seen and examined at 7:00 PM Upon FULL ROS he currently has not complaints States that he is not hungray He [place] [facility] [place] on morning of 01/22/18 and patient will be [place] [facility] [place] is deemed stable. - Constitutional Appears: Non-toxic, No Acute Distress - Head Exam Additional comments: NCA - Eye Exam Eye Exam: EOMI, PERRL - Respiratory Exam Respiratory Exam: Decreased Breath Sounds, Rales (bibasilar) Additional comments: - Cardiovascular Exam Cardiovascular Exam: REGULAR RHYTHM, +S1, +S2 - GI/Abdominal Exam GI & Abdominal Exam: Soft, Normal Bowel Sounds. absent: Distended, Firm, Guarding, Rigid, Tenderness, Rebound - Exam Additional comments: TVP via the groin (right side) - Extremities Exam Extremities Exam: absent: Pedal Edema, Tenderness - Neurological Exam Neurological Exam: Alert, Awake Neuro motor strength exam: Left Upper Extremity: 5, Right Upper Extremity: 5, Left Lower Extremity: 5, Right Lower Extremity: 5 - Psychiatric Exam Psychiatric exam: Normal Affect, Normal Mood - Skin Skin Exam: Dry, Normal Color, Warm Assessment and Plan (1) Heart block Assessment & Plan: patient was found in complete heart block, cardiogenic shock and hyperkalemic on 01/18/18. Had a temporary venous pacemaker placed on 01/18/18 Was code blue and code heart 01/18/18 Transferred to [facility] for dialysis primarily Status: Acute (2) Cardiogenic shock Assessment & Plan: Had temporary pacemaker placed at [place] Status: Acute (3) History of NM (myocardial infarction) Assessment & Plan: 3 prior of NM Official cardiac cath not available from [place]--> per review of record no acute occlusion and temporary Echocardiogram (01/18/18): left ventricle is normal size, systolic function is moderately impaired EF:30% mitral regurgitation is trace, trace tricupsid regurgitation, s/p cardiac arrest, s/p TVR, and cardiac cath prior cath (04/07/17): inferobasal hypokinesis of the LV with preserved LV function EF: 50%. 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 Patent saphenous vein graft to the posterior lateral branch. Chronic. Aspirin 81mg PO daily Status: Acute (4) Hx of CABG Assessment & Plan: 3 prior of NM Echocardiogram (01/18/18): left ventricle is normal size, systolic function is moderately impaired EF:30% mitral regurgitation is trace, trace tricupsid regurgitation, s/p cardiac arrest, s/p TVR, and cardiac cath prior cath (04/07/17): inferobasal hypokinesis of the LV with preserved LV function EF: 50%. 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 Patent saphenous vein graft to the posterior lateral branch. Chronic. Status: Acute (5) Diabetes Assessment & Plan: hgba1c: 7.6 Accuchecks Q6H insulin sliding scale subq Status: Acute (6) Amputation foot, unilat Assessment & Plan: right lower extremity all toes amputed Status: Chronic (7) Pneumonia Assessment & Plan: Cefepime 1gram IV q12 Status: Acute (8) ESRD (end stage renal disease) on dialysis Assessment & Plan: Nephrology (Dr. Wilson) help appreciated patient underwent dialysis last night when he was transferred from [place] He is //Thursday as outpatient Status: Acute (9) Prophylactic measure Assessment & Plan: POLST: DNR/DNI Surrogate: Geoffrey Oro [phone] Status: Acute Jurgen Barron D.O. Objective - Vital Signs/Intake and Output Vital Signs (last 24 hours): Temp Pulse Resp BP Pulse Ox 98.3 F 75 15 130/62 95 01/21/18 16:00 01/21/18 17:01 01/21/18 17:01 01/21/18 17:01 01/21/18 17:01 Intake and Output: 01/21/18 01/22/18 18:59 06:59 Intake Total 943.93 Output Total 0 Balance 943.93 - Medications Medications: Current Medications Acetaminophen (Tylenol 650 Mg Supp) 650 mg RI Q6H PRN PRN Reason: Fever >100.4 F Acetaminophen (Tylenol 325mg Tab) 650 mg PO Q6 PRN PRN Reason: Pain, Mild (1-3) Last Admin: 01/20/18 10:15 Dose: 650 mg Aspirin (Aspirin Chewable) 81 mg PO DAILY [facility] Last Admin: 01/21/18 08:59 Dose: 81 mg Calcium Acetate (Phoslo) 1,334 mg PO TIDCC [facility] Last Admin: 01/21/18 16:22 Dose: 1,334 mg Heparin Sodium (Porcine) (Heparin) 5,000 units SC Q8 [facility] Last Admin: 01/21/18 12:59 Dose: 5,000 units Cefepime HCl (Maxipime Iv 1 Gm Premix) 1 gm in 50 mls @ 100 mls/hr IVPB Q24H [facility] PRN Reason: Protocol Last Admin: 01/21/18 10:18 Dose: 100 mls/hr Insulin Human Regular (Novolin R) 0 unit SC ACHS [facility] PRN Reason: Protocol Last Admin: 01/21/18 16:21 Dose: 5 u Metoprolol Tartrate (Lopressor) 12.5 mg PO BID [facility] Last Admin: 01/21/18 18:06 Dose: 12.5 mg Pantoprazole Sodium (Protonix Inj) 40 mg IVP DAILY [facility] Last Admin: 01/21/18 08:59 Dose: 40 mg - Labs Labs: 01/21/18 10:15 01/21/18 10:15 PT 11.8 SECONDS (9.7-12.2) 01/21/18 06:19 INR 1.1 01/21/18 06:19 APTT 27 SECONDS (21-34) 01/21/18 06:19
--- NOTE | 2018-01-22 00:02 | CP.PCM.PN ---
Subjective - Date & Time of Evaluation Date of Evaluation: 01/21/18 Time of Evaluation: 15:30 - Subjective Subjective: Patient seen and evaluated Denies chest pain and dyspnea Patient for AICD tomorrow Objective - Vital Signs/Intake and Output Vital Signs (last 24 hours): Temp Pulse Resp BP Pulse Ox 98.5 F 79 16 137/72 95 01/21/18 20:00 01/21/18 21:10 01/21/18 21:10 01/21/18 21:05 01/21/18 21:10 Intake and Output: 01/21/18 01/22/18 18:59 06:59 Intake Total 943.93 0 Output Total 0 Balance 943.93 0 - Medications Medications: Current Medications Acetaminophen (Tylenol 650 Mg Supp) 650 mg IN Q6H PRN PRN Reason: Fever >100.4 F Acetaminophen (Tylenol 325mg Tab) 650 mg PO Q6 PRN PRN Reason: Pain, Mild (1-3) Last Admin: 01/20/18 10:15 Dose: 650 mg Aspirin (Aspirin Chewable) 81 mg PO DAILY [facility] Last Admin: 01/21/18 08:59 Dose: 81 mg Calcium Acetate (Phoslo) 1,334 mg PO TIDCC [facility] Last Admin: 01/21/18 16:22 Dose: 1,334 mg Heparin Sodium (Porcine) (Heparin) 5,000 units SC Q8 [facility] Last Admin: 01/21/18 22:55 Dose: 5,000 units Cefepime HCl (Maxipime Iv 1 Gm Premix) 1 gm in 50 mls @ 100 mls/hr IVPB Q24H [facility] PRN Reason: Protocol Last Admin: 01/21/18 10:18 Dose: 100 mls/hr Insulin Human Regular (Novolin R) 0 unit SC ACHS [facility] PRN Reason: Protocol Last Admin: 01/21/18 21:25 Dose: Not Given Metoprolol Tartrate (Lopressor) 12.5 mg PO BID [facility] Last Admin: 01/21/18 18:06 Dose: 12.5 mg Pantoprazole Sodium (Protonix Inj) 40 mg IVP DAILY [facility] Last Admin: 01/21/18 08:59 Dose: 40 mg - Labs Labs: 01/21/18 10:15 01/21/18 10:15 PT 11.8 SECONDS (9.7-12.2) 01/21/18 06:19 INR 1.1 01/21/18 06:19 APTT 27 SECONDS (21-34) 01/21/18 06:19
[2018-01-22 06:22] LABS: BASO # 0.1 K/uL (0.0-0.2); BASO % 0.8 % (0.0-2.0); EOS # 0.1 K/uL (0.0-0.7); EOS % 0.6 % (0.0-4.0); HEMOGLOBIN 12.5 g/dL (12.0-18.0); LYMPH # 1.4 K/uL (1.0-4.3); LYMPH % 14.8 % (20.0-40.0); MEAN CELL VOLUME 87.9 fL (80.0-94.0); MEAN CORPUSCULAR HEMOGLOBIN 29.3 pg (27.0-31.0); MEAN CORPUSCULAR HGB CONC 33.4 g/dL (33.0-37.0); MEAN PLATELET VOLUME 10.9 fL (7.2-11.7); MONO # 1.1 K/uL (0.0-0.8); MONO % 11.2 % (0.0-10.0); NEUT # 6.8 K/uL (1.8-7.0); NEUT % 72.6 % (50.0-75.0); RBC 4.25 Mil/uL (4.40-5.90); RED CELL DISTRIBUTION WIDTH 16.2 % (11.5-14.5); WHITE BLOOD COUNT 9.4 K/uL (4.8-10.8)
[2018-01-22 06:44] LABS: ALB/GLOB RATIO 1.2 (1.0-2.1); ALBUMIN 3.4 g/dL (3.5-5.0); CALCIUM 8.2 mg/dl (8.6-10.4)
[2018-01-22] MEDS: (Novolin R) Insulin Human Regular 100 units/ml vial SC SCH (07:58)
--- NOTE | 2018-01-22 08:27 | CP.CCUPN ---
Addendum entered and electronically signed by Annel Fraser DO 01/22/18 09:18 : Patient is downgraded to telemetry. Original Note: <Annel Fraser - Last Filed: 01/22/18 08:22> CCU Subjective - Physician Review Subjective (Free Text): Patient seen and examined at bedside. Patient reports he feels okay. He is for PPM/AICD placement [place] [facility] [place]. Will be transported and stay at [facility]. CCU Objective - Vital Signs / Intake & Output Vital Signs (Last 4 hours): Vital Signs Pulse Resp BP Pulse Ox 01/22/18 06:40 42 L 89 L 01/22/18 06:30 84 17 94 L 01/22/18 06:20 108 H 27 H 92 L 01/22/18 06:17 81 25 H 112/54 L 90 L 01/22/18 06:10 85 41 H 93 L 01/22/18 06:00 81 25 H 01/22/18 05:50 84 29 H 91 L 01/22/18 05:40 83 26 H 95 01/22/18 05:30 85 18 96 01/22/18 05:20 81 22 93 L 01/22/18 05:17 80 13 149/74 94 L 01/22/18 05:10 82 25 H 94 L 01/22/18 05:00 86 22 92 L 01/22/18 04:50 85 18 01/22/18 04:40 86 15 01/22/18 04:30 85 28 H Intake and Output (Last 8hrs): Intake & Output 01/21/18 01/22/18 01/22/18 22:59 06:59 14:59 Intake Total 112 240 Output Total 450 Balance 112 -210 Weight 196 lb 2 oz Intake: Intake, IV Amount 0 Left Wrist 0 Oral 112 240 Output: Urine 450 Urine, Voided 450 Other: # Voids Urine, Voided 2 # Bowel Movements 1 1 - Physical Exam Head: Positive for: Atraumatic, Normocephalic Pupils: Positive for: PERRL Extroacular Muscles: Positive for: EOMI Conjunctiva: Positive for: Normal Mouth: Positive for: Dry Respiratory/Chest: Positive for: Clear to Auscultation Cardiovascular: Positive for: Regular Rate and Rhythm Abdomen: Positive for: Normal Bowel Sounds - Medications Active Medications: Active Medications Generic Name Dose Route Start Last Admin Trade Name Freq PRN Reason Stop Dose Admin Acetaminophen 650 mg 01/18/18 16:37 Tylenol 650 Mg Supp OK Q6H PRN Fever >100.4 F Acetaminophen 650 mg 01/20/18 10:06 01/20/18 10:15 Tylenol 325mg Tab PO 650 mg Q6 PRN Administration Pain, Mild (1-3) Aspirin 81 mg 01/19/18 10:00 01/21/18 08:59 Aspirin Chewable PO 81 mg DAILY DESTINI Administration Calcium Acetate 1,334 mg 01/19/18 09:45 01/21/18 16:22 Phoslo PO 1,334 mg TIDCC DESTINI Administration Heparin Sodium (Porcine) 5,000 units 01/18/18 22:00 01/21/18 22:55 Heparin SC 5,000 units Q8 DESTINI Administration Insulin Human Regular 0 unit 01/19/18 16:30 01/22/18 07:58 Novolin R SC 2 u ACHS DESTINI Administration Protocol Metoprolol Tartrate 12.5 mg 01/21/18 16:31 01/21/18 18:06 Lopressor PO 12.5 mg BID DESTINI Administration Pantoprazole Sodium 40 mg 01/19/18 10:00 01/21/18 08:59 Protonix Inj IVP 40 mg DAILY DESTINI Administration - Patient Studies Lab Studies: Lab Studies 01/22/18 01/22/18 01/22/18 Range/Units 07:34 06:14 06:14 WBC 9.4 (4.8-10.8) K/uL RBC 4.25 L (4.40-5.90) Mil/uL Hgb 12.5 (12.0-18.0) g/dL Hct 37.3 (35.0-51.0) % MCV 87.9 (80.0-94.0) fL MCH 29.3 (27.0-31.0) pg MCHC 33.4 (33.0-37.0) g/dL RDW 16.2 H (11.5-14.5) % Plt Count 211 (130-400) K/uL MPV 10.9 (7.2-11.7) fL Neut % (Auto) 72.6 (50.0-75.0) % Lymph % (Auto) 14.8 L (20.0-40.0) % Kent % (Auto) 11.2 H (0.0-10.0) % Eos % (Auto) 0.6 (0.0-4.0) % Baso % (Auto) 0.8 (0.0-2.0) % Neut # (Auto) 6.8 (1.8-7.0) K/uL Lymph # (Auto) 1.4 (1.0-4.3) K/uL Kent # (Auto) 1.1 H (0.0-0.8) K/uL Eos # (Auto) 0.1 (0.0-0.7) K/uL Baso # (Auto) 0.1 (0.0-0.2) K/uL Puncture Site pCO2 (35-45) mm/Hg pO2 (80-100) mm/Hg HCO3 (21-28) mmol/L ABG pH (7.35-7.45) ABG Total CO2 (22-28) mmol/L ABG O2 Saturation (95-98) % ABG Base Excess (-2.0-3.0) mmol/L Vickey Test ABG Potassium (3.6-5.2) mmol/L Sodium 131 L (132-148) mmol/l Chloride 92 L (98-107) mmol/L Glucose (75-110) mg/dl Lactate (0.7-2.1) mmol/L Liter Flow Blood Gas Comments Crit Value Called To Crit Value Called By Crit Value Read Back Blood Gas Notified Time Potassium 4.6 (3.6-5.2) mmol/L Carbon Dioxide 19 L (22-30) mmol/L Anion Gap 25 H (10-20) BUN 71 H (9-20) mg/dL Creatinine 9.2 H* (0.8-1.5) mg/dL Est GFR ( Amer) 7 Est GFR (Non-Af Amer) 6 POC Glucose (mg/dL) 248 H (65-110) mg/dL Random Glucose 234 H (75-110) mg/dL Calcium 8.2 L (8.6-10.4) mg/dl Phosphorus 8.6 H (2.5-4.5) mg/dL Magnesium 2.7 H (1.6-2.3) mg/dL Total Bilirubin 0.5 (0.2-1.3) mg/dL AST 40 (17-59) U/L ALT 76 H (21-72) U/L Alkaline Phosphatase 74 (38-126) U/L Total Creatine Kinase (55-170) U/L CK-MB (Mass) (0.0-3.38) ng/mL Troponin I (0.00-0.120) ng/mL Total Protein 6.2 L (6.3-8.3) g/dL Albumin 3.4 L (3.5-5.0) g/dL Globulin 2.8 (2.2-3.9) gm/dL Albumin/Globulin Ratio 1.2 (1.0-2.1) Arterial Blood Potassium (3.6-5.2) mmol/L 01/21/18 01/21/18 01/21/18 Range/Units 21:21 16:04 11:58 WBC (4.8-10.8) K/uL RBC (4.40-5.90) Mil/uL Hgb (12.0-18.0) g/dL Hct (35.0-51.0) % MCV (80.0-94.0) fL MCH (27.0-31.0) pg MCHC (33.0-37.0) g/dL RDW (11.5-14.5) % Plt Count (130-400) K/uL MPV (7.2-11.7) fL Neut % (Auto) (50.0-75.0) % Lymph % (Auto) (20.0-40.0) % Kent % (Auto) (0.0-10.0) % Eos % (Auto) (0.0-4.0) % Baso % (Auto) (0.0-2.0) % Neut # (Auto) (1.8-7.0) K/uL Lymph # (Auto) (1.0-4.3) K/uL Kent # (Auto) (0.0-0.8) K/uL Eos # (Auto) (0.0-0.7) K/uL Baso # (Auto) (0.0-0.2) K/uL Puncture Site pCO2 (35-45) mm/Hg pO2 (80-100) mm/Hg HCO3 (21-28) mmol/L ABG pH (7.35-7.45) ABG Total CO2 (22-28) mmol/L ABG O2 Saturation (95-98) % ABG Base Excess (-2.0-3.0) mmol/L Vickey Test ABG Potassium (3.6-5.2) mmol/L Sodium (132-148) mmol/l Chloride (98-107) mmol/L Glucose (75-110) mg/dl Lactate (0.7-2.1) mmol/L Liter Flow Blood Gas Comments Crit Value Called To Crit Value Called By Crit Value Read Back Blood Gas Notified Time Potassium (3.6-5.2) mmol/L Carbon Dioxide (22-30) mmol/L Anion Gap (10-20) BUN (9-20) mg/dL Creatinine (0.8-1.5) mg/dL Est GFR ( Amer) Est GFR (Non-Af Amer) POC Glucose (mg/dL) 252 H 379 H 348 H (65-110) mg/dL Random Glucose (75-110) mg/dL Calcium (8.6-10.4) mg/dl Phosphorus (2.5-4.5) mg/dL Magnesium (1.6-2.3) mg/dL Total Bilirubin (0.2-1.3) mg/dL AST (17-59) U/L ALT (21-72) U/L Alkaline Phosphatase (38-126) U/L Total Creatine Kinase (55-170) U/L CK-MB (Mass) (0.0-3.38) ng/mL Troponin I (0.00-0.120) ng/mL Total Protein (6.3-8.3) g/dL Albumin (3.5-5.0) g/dL Globulin (2.2-3.9) gm/dL Albumin/Globulin Ratio (1.0-2.1) Arterial Blood Potassium (3.6-5.2) mmol/L 01/21/18 01/21/18 01/21/18 Range/Units 10:15 10:15 09:54 WBC 7.4 (4.8-10.8) K/uL RBC 4.10 L (4.40-5.90) Mil/uL Hgb 11.8 L (12.0-18.0) g/dL Hct 35.7 (35.0-51.0) % MCV 87.2 (80.0-94.0) fL MCH 28.7 (27.0-31.0) pg MCHC 33.0 (33.0-37.0) g/dL RDW 15.6 H (11.5-14.5) % Plt Count 195 (130-400) K/uL MPV 10.4 (7.2-11.7) fL Neut % (Auto) 77.3 H (50.0-75.0) % Lymph % (Auto) 13.0 L (20.0-40.0) % Kent % (Auto) 8.8 (0.0-10.0) % Eos % (Auto) 0.3 (0.0-4.0) % Baso % (Auto) 0.6 (0.0-2.0) % Neut # (Auto) 5.7 (1.8-7.0) K/uL Lymph # (Auto) 1.0 (1.0-4.3) K/uL Kent # (Auto) 0.7 (0.0-0.8) K/uL Eos # (Auto) 0.0 (0.0-0.7) K/uL Baso # (Auto) 0.0 (0.0-0.2) K/uL Puncture Site L/f pCO2 37 (35-45) mm/Hg pO2 30 L* (80-100) mm/Hg HCO3 20.1 L (21-28) mmol/L ABG pH 7.35 (7.35-7.45) ABG Total CO2 21.5 L (22-28) mmol/L ABG O2 Saturation 48.8 L (95-98) % ABG Base Excess -4.7 L (-2.0-3.0) mmol/L Vickey Test Na ABG Potassium 2.9 L (3.6-5.2) mmol/L Sodium 132 140.0 (132-148) mmol/l Chloride 95 L 108.0 H (98-107) mmol/L Glucose 216 H (75-110) mg/dl Lactate 1.2 (0.7-2.1) mmol/L Liter Flow 4.0 Blood Gas Comments Venous blood as/ dr harley Crit Value Called To Dr milton harley Crit Value Called By Geoffrey de la rosa [facility] Crit Value Read Back Y Blood Gas Notified Time 1000 Potassium 4.2 (3.6-5.2) mmol/L Carbon Dioxide 23 (22-30) mmol/L Anion Gap 19 (10-20) BUN 57 H (9-20) mg/dL Creatinine 8.0 H* (0.8-1.5) mg/dL Est GFR ( Amer) 8 Est GFR (Non-Af Amer) 7 POC Glucose (mg/dL) (65-110) mg/dL Random Glucose 299 H (75-110) mg/dL Calcium 8.1 L (8.6-10.4) mg/dl Phosphorus 7.1 H (2.5-4.5) mg/dL Magnesium 2.3 (1.6-2.3) mg/dL Total Bilirubin 0.4 (0.2-1.3) mg/dL AST 54 (17-59) U/L ALT 89 H (21-72) U/L Alkaline Phosphatase 75 (38-126) U/L Total Creatine Kinase 686 H (55-170) U/L CK-MB (Mass) 7.59 H (0.0-3.38) ng/mL Troponin I 112.0000 H* (0.00-0.120) ng/mL Total Protein 6.3 (6.3-8.3) g/dL Albumin 3.4 L (3.5-5.0) g/dL Globulin 2.9 (2.2-3.9) gm/dL Albumin/Globulin Ratio 1.2 (1.0-2.1) Arterial Blood Potassium 2.9 L (3.6-5.2) mmol/L Laboratory Results - last 24 hr 01/21/18 01/21/18 01/21/18 09:54 10:15 10:15 WBC 7.4 RBC 4.10 L Hgb 11.8 L Hct 35.7 MCV 87.2 MCH 28.7 MCHC 33.0 RDW 15.6 H Plt Count 195 MPV 10.4 Neut % (Auto) 77.3 H Lymph % (Auto) 13.0 L Kent % (Auto) 8.8 Eos % (Auto) 0.3 Baso % (Auto) 0.6 Neut # (Auto) 5.7 Lymph # (Auto) 1.0 Kent # (Auto) 0.7 Eos # (Auto) 0.0 Baso # (Auto) 0.0 Puncture Site L/f pCO2 37 pO2 30 L* HCO3 20.1 L ABG pH 7.35 ABG Total CO2 21.5 L ABG O2 Saturation 48.8 L ABG Base Excess -4.7 L Vickey Test Na ABG Potassium 2.9 L Sodium 140.0 132 Chloride 108.0 H 95 L Glucose 216 H Lactate 1.2 Liter Flow 4.0 Blood Gas Comments Venous blood as/ dr harley Crit Value Called To Dr milton harley Crit Value Called By Geoffrey de la rosa [facility] Crit Value Read Back Y Blood Gas Notified Time 1000 Potassium 4.2 Carbon Dioxide 23 Anion Gap 19 BUN 57 H Creatinine 8.0 H* Est GFR ( Amer) 8 Est GFR (Non-Af Amer) 7 POC Glucose (mg/dL) Random Glucose 299 H Calcium 8.1 L Phosphorus 7.1 H Magnesium 2.3 Total Bilirubin 0.4 AST 54 ALT 89 H Alkaline Phosphatase 75 Total Creatine Kinase 686 H CK-MB (Mass) 7.59 H Troponin I 112.0000 H* Total Protein 6.3 Albumin 3.4 L Globulin 2.9 Albumin/Globulin Ratio 1.2 Arterial Blood Potassium 2.9 L 01/21/18 01/21/18 01/21/18 11:58 16:04 21:21 WBC RBC Hgb Hct MCV MCH MCHC RDW Plt Count MPV Neut % (Auto) Lymph % (Auto) Kent % (Auto) Eos % (Auto) Baso % (Auto) Neut # (Auto) Lymph # (Auto) Kent # (Auto) Eos # (Auto) Baso # (Auto) Puncture Site pCO2 pO2 HCO3 ABG pH ABG Total CO2 ABG O2 Saturation ABG Base Excess Vickey Test ABG Potassium Sodium Chloride Glucose Lactate Liter Flow Blood Gas Comments Crit Value Called To Crit Value Called By Crit Value Read Back Blood Gas Notified Time Potassium Carbon Dioxide Anion Gap BUN Creatinine Est GFR ( Amer) Est GFR (Non-Af Amer) POC Glucose (mg/dL) 348 H 379 H 252 H Random Glucose Calcium Phosphorus Magnesium Total Bilirubin AST ALT Alkaline Phosphatase Total Creatine Kinase CK-MB (Mass) Troponin I Total Protein Albumin Globulin Albumin/Globulin Ratio Arterial Blood Potassium 01/22/18 01/22/18 01/22/18 06:14 06:14 07:34 WBC 9.4 RBC 4.25 L Hgb 12.5 Hct 37.3 MCV 87.9 MCH 29.3 MCHC 33.4 RDW 16.2 H Plt Count 211 MPV 10.9 Neut % (Auto) 72.6 Lymph % (Auto) 14.8 L Kent % (Auto) 11.2 H Eos % (Auto) 0.6 Baso % (Auto) 0.8 Neut # (Auto) 6.8 Lymph # (Auto) 1.4 Kent # (Auto) 1.1 H Eos # (Auto) 0.1 Baso # (Auto) 0.1 Puncture Site pCO2 pO2 HCO3 ABG pH ABG Total CO2 ABG O2 Saturation ABG Base Excess Vickey Test ABG Potassium Sodium 131 L Chloride 92 L Glucose Lactate Liter Flow Blood Gas Comments Crit Value Called To Crit Value Called By Crit Value Read Back Blood Gas Notified Time Potassium 4.6 Carbon Dioxide 19 L Anion Gap 25 H BUN 71 H Creatinine 9.2 H* Est GFR ( Amer) 7 Est GFR (Non-Af Amer) 6 POC Glucose (mg/dL) 248 H Random Glucose 234 H Calcium 8.2 L Phosphorus 8.6 H Magnesium 2.7 H Total Bilirubin 0.5 AST 40 ALT 76 H Alkaline Phosphatase 74 Total Creatine Kinase CK-MB (Mass) Troponin I Total Protein 6.2 L Albumin 3.4 L Globulin 2.8 Albumin/Globulin Ratio 1.2 Arterial Blood Potassium EKG/Cardiology Studies: Cardiology / EKG Studies 01/21/18 10:06 EKG [ELECTROCARDIOGRAM] Stat Comment: Mode Of Transportation: Reason For Exam: vtach Fingerstick Blood Sugar Results: 248 Critical Care Progress Note - Nutrition Nutrition: Nutrition Category Date Time Status NPO Diet [DIET] Diets 01/22/18 Breakfast Active Assessment/Plan - Assessment and Plan (Free Text) Assessment: This is a 57 year old male with PMHx of HTN, CAD with CABG, s/p 3 stents, KS x 3 , T2DM on insulin with diabetic neuropathy and gastroparesis,history of diabetic foot infections S/P amputation of the 5 digits of his right foot, ESRD on HD TTS with Right AVF, hx of permacath related infection with psuedomonas and septic embolic (rule out endocarditis via FLAKITO), patient was admitted to [facility] on 01/17, as a Code blue s/p 3 rounds of epi. Patient is intubated on Levophed and Dobutamine s/p cardiac catherization - which showed no obstruction of present graphs, LVEF 25-30%. Patient is transferred to [facility] for dialysis. Extubated 01/19/18. Patient's code status was re-evaluated. As of 10am 01/21/18 patient is FULL CODE; Palliative care confirmed with patient and Mr. Geoffrey Oro, patient's surrogate decision maker - patient is now FULL CODE. Patient is for PPM/AICD in [facility] 01/22/18 2pm. Will not return to [facility]. 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 No acute intracranial abnormality. - Aspiration precautions Cardio: A: HF with rEF - severe systolic dysfunction - ECHO (done at [place]): LVEF 30%, systolic function severely impaired - PPM/ AICD placement A: Cardiogenic Shock -RESOLVED - ECHO (done at [place]): LVEF 30%, systolic function severely impaired A: Complete heart block - resolved - Pacing wire placed during cardiac cath, removed - Patient is for PPM/AICD in [facility] 01/22/18 2pm A: Hx HTN, HLD - Lopressor 12.5mg PO BID - Held Crestor 2/2 transaminitis A: CAD with CABG, s/p 3 stents, KS x 3 - ASA Pulm: A: Repiratory Failure - Extubated 01/19 GI: A: Transaminitis - downtrending - As per GI- likely 2/ 2 ischemic hepatopathy - Viral studies negative and autoimmune studies ordered - Abdominal US: no acute findings - Held Crestor A: Chronic gastritis, nonbleeding esophagel ulcers - Prior EGD 04/06/2017 showing nonbleeding esophageal ulcers, LAGC esophagitis, and chronic gastritis - Protonix Renal: A: ESRD on HD TTS with Right AVF, making urine -- Dr. Wilson consulted - Patient is noncompliant, attends dialysis 1 out of 3 weekly sessions - Carlee Richard - Received 100 MEQ bicarb Endo: A: T2DM on Insulin - Accuchecks, ISS - Q6H - HgbA1c 7.6 ID: A: LLL Pneumonia vs Effusion - Likely 2/2 cardiac arrest - Lactate 4.2 -> 1.0 - Procal high - On Cefepime, started Azithro - F/U turner cultures - negative to date (done at [place]) - f/u pneumonia work up Heme/ Onc: A: Anemia of Chronic Disease - Procrit, Phoslo Prophylaxis: - Protonix - SCDs, Hep Q8H - Left Femoral TLC 01/18/18 - removed 01/20 - CODE STATUS: POLST:DNR/DNI (prior code status) - patient was intubated out in the field by EMS Disposition: Disposition: As of 10am 01/21/18 patient is FULL CODE; Palliative care confirmed with patient and Mr. Geoffrey Kirbyclifton, patient's surrogate decision maker - patient is now FULL CODE. Patient is for PPM/AICD in [facility] 01/22/18 2pm. Will not return to [facility]. DW Dr. Velvet Harley, Annel Fraser DO, PGY-1 <Velvet Harley - Last Filed: 01/22/18 10:48> CCU Objective - Vital Signs / Intake & Output Vital Signs (Last 4 hours): Vital Signs Temp Pulse Resp BP Pulse Ox 01/22/18 09:10 93 H 24 95 01/22/18 09:00 118 H 13 98 01/22/18 08:50 86 13 96 01/22/18 08:40 94 H 26 H 96 01/22/18 08:30 96 H 25 H 97 01/22/18 08:20 80 25 H 96 01/22/18 08:16 81 26 H 117/53 L 94 L 01/22/18 08:10 80 29 H 96 01/22/18 08:00 98.1 F 82 20 95 01/22/18 07:55 79 30 H 118/54 L 96 01/22/18 07:50 82 23 94 L 01/22/18 07:40 82 13 96 01/22/18 07:30 81 20 95 01/22/18 07:20 84 11 L 01/22/18 07:10 90 20 01/22/18 07:00 83 19 94 L Intake and Output (Last 8hrs): Intake & Output 01/21/18 01/22/1801/22/18 22:59 06:59 14:59 Intake Total 112 240 Output Total 450 Balance 112 -210 Weight 196 lb 2 oz Intake: Intake, IV Amount 0 Left Wrist 0 Oral 112 240 Output: Urine 450 Urine, Voided 450 Emesis 0 Other: # Voids Urine, Voided 2 # Bowel Movements 1 0 - Medications Active Medications: Active Medications Generic Name Dose Route Start Last Admin Trade Name Freq PRN Reason Stop Dose Admin Acetaminophen 650 mg 01/20/18 10:06 01/20/18 10:15 Tylenol 325mg Tab PO 650 mg Q6 PRN Administration Pain, Mild (1-3) Aspirin 81 mg 01/19/18 10:00 01/22/18 10:17 Aspirin Chewable PO 81 mg DAILY DESTINI Administration Calcium Acetate 1,334 mg 01/19/18 09:45 01/22/18 08:30 Phoslo PO Not Given TIDCC DESTINI Heparin Sodium (Porcine) 5,000 units 01/18/18 22:00 01/21/18 22:55 Heparin SC 5,000 units Q8 DESTINI Administration Insulin Human Regular 0 unit 01/19/18 16:30 01/22/18 07:58 Novolin R SC 2 u ACHS DESTINI Administration Protocol Metoprolol Tartrate 12.5 mg 01/21/18 16:31 01/22/18 10:02 Lopressor PO 12.5 mg BID DESTINI Administration Pantoprazole Sodium 40 mg 01/22/18 10:00 01/22/18 10:02 Protonix Ec Tab PO 40 mg DAILY DESTINI Administration - Patient Studies Lab Studies: Lab Studies 01/22/18 01/22/18 01/22/18 Range/Units 07:34 06:14 06:14 WBC 9.4 (4.8-10.8) K/uL RBC 4.25 L (4.40-5.90) Mil/uL Hgb 12.5 (12.0-18.0) g/dL Hct 37.3 (35.0-51.0) % MCV 87.9 (80.0-94.0) fL MCH 29.3 (27.0-31.0) pg MCHC 33.4 (33.0-37.0) g/dL RDW 16.2 H (11.5-14.5) % Plt Count 211 (130-400) K/uL MPV 10.9 (7.2-11.7) fL Neut % (Auto) 72.6 (50.0-75.0) % Lymph % (Auto) 14.8 L (20.0-40.0) % Kent % (Auto) 11.2 H (0.0-10.0) % Eos % (Auto) 0.6 (0.0-4.0) % Baso % (Auto) 0.8 (0.0-2.0) % Neut # (Auto) 6.8 (1.8-7.0) K/uL Lymph # (Auto) 1.4 (1.0-4.3) K/uL Kent # (Auto) 1.1 H (0.0-0.8) K/uL Eos # (Auto) 0.1 (0.0-0.7) K/uL Baso # (Auto) 0.1 (0.0-0.2) K/uL Sodium 131 L (132-148) mmol/L Potassium 4.6 (3.6-5.2) mmol/L Chloride 92 L (98-107) mmol/L Carbon Dioxide 19 L (22-30) mmol/L Anion Gap 25 H (10-20) BUN 71 H (9-20) mg/dL Creatinine 9.2 H* (0.8-1.5) mg/dL Est GFR ( Amer) 7 Est GFR (Non-Af Amer) 6 POC Glucose (mg/dL) 248 H (65-110) mg/dL Random Glucose 234 H (75-110) mg/dL Calcium 8.2 L (8.6-10.4) mg/dl Phosphorus 8.6 H (2.5-4.5) mg/dL Magnesium 2.7 H (1.6-2.3) mg/dL Total Bilirubin 0.5 (0.2-1.3) mg/dL AST 40 (17-59) U/L ALT 76 H (21-72) U/L Alkaline Phosphatase 74 (38-126) U/L CK-MB (Mass) (0.0-3.38) ng/mL Troponin I (0.00-0.120) ng/mL Total Protein 6.2 L (6.3-8.3) g/dL Albumin 3.4 L (3.5-5.0) g/dL Globulin 2.8 (2.2-3.9) gm/dL Albumin/Globulin Ratio 1.2 (1.0-2.1) 01/21/18 01/21/18 01/21/18 Range/Units 21:21 16:04 11:58 WBC (4.8-10.8) K/uL RBC (4.40-5.90) Mil/uL Hgb (12.0-18.0) g/dL Hct (35.0-51.0) % MCV (80.0-94.0) fL MCH (27.0-31.0) pg MCHC (33.0-37.0) g/dL RDW (11.5-14.5) % Plt Count (130-400) K/uL MPV (7.2-11.7) fL Neut % (Auto) (50.0-75.0) % Lymph % (Auto) (20.0-40.0) % Kent % (Auto) (0.0-10.0) % Eos % (Auto) (0.0-4.0) % Baso % (Auto) (0.0-2.0) % Neut # (Auto) (1.8-7.0) K/uL Lymph # (Auto) (1.0-4.3) K/uL Kent # (Auto) (0.0-0.8) K/uL Eos # (Auto) (0.0-0.7) K/uL Baso # (Auto) (0.0-0.2) K/uL Sodium (132-148) mmol/L Potassium (3.6-5.2) mmol/L Chloride (98-107) mmol/L Carbon Dioxide (22-30) mmol/L Anion Gap (10-20) BUN (9-20) mg/dL Creatinine (0.8-1.5) mg/dL Est GFR ( Amer) Est GFR (Non-Af Amer) POC Glucose (mg/dL) 252 H 379 H 348 H (65-110) mg/dL Random Glucose (75-110) mg/dL Calcium (8.6-10.4) mg/dl Phosphorus (2.5-4.5) mg/dL Magnesium (1.6-2.3) mg/dL Total Bilirubin (0.2-1.3) mg/dL AST (17-59) U/L ALT (21-72) U/L Alkaline Phosphatase (38-126) U/L CK-MB (Mass) (0.0-3.38) ng/mL Troponin I (0.00-0.120) ng/mL Total Protein (6.3-8.3) g/dL Albumin (3.5-5.0) g/dL Globulin (2.2-3.9) gm/dL Albumin/Globulin Ratio (1.0-2.1) 01/21/18 Range/Units 10:15 WBC (4.8-10.8) K/uL RBC (4.40-5.90) Mil/uL Hgb (12.0-18.0) g/dL Hct (35.0-51.0) % MCV (80.0-94.0) fL MCH (27.0-31.0) pg MCHC (33.0-37.0) g/dL RDW (11.5-14.5) % Plt Count (130-400) K/uL MPV (7.2-11.7) fL Neut % (Auto) (50.0-75.0) % Lymph % (Auto) (20.0-40.0) % Kent % (Auto) (0.0-10.0) % Eos % (Auto) (0.0-4.0) % Baso % (Auto) (0.0-2.0) % Neut # (Auto) (1.8-7.0) K/uL Lymph # (Auto) (1.0-4.3) K/uL Kent # (Auto) (0.0-0.8) K/uL Eos # (Auto) (0.0-0.7) K/uL Baso # (Auto) (0.0-0.2) K/uL Sodium (132-148) mmol/L Potassium (3.6-5.2) mmol/L Chloride (98-107) mmol/L Carbon Dioxide (22-30) mmol/L Anion Gap (10-20) BUN (9-20) mg/dL Creatinine (0.8-1.5) mg/dL Est GFR ( Amer) Est GFR (Non-Af Amer) POC Glucose (mg/dL) (65-110) mg/dL Random Glucose (75-110) mg/dL Calcium (8.6-10.4) mg/dl Phosphorus (2.5-4.5) mg/dL Magnesium (1.6-2.3) mg/dL Total Bilirubin (0.2-1.3) mg/dL AST (17-59) U/L ALT (21-72) U/L Alkaline Phosphatase (38-126) U/L CK-MB (Mass) 7.59 H (0.0-3.38) ng/mL Troponin I 112.0000 H* (0.00-0.120) ng/mL Total Protein (6.3-8.3) g/dL Albumin (3.5-5.0) g/dL Globulin (2.2-3.9) gm/dL Albumin/Globulin Ratio (1.0-2.1) Laboratory Results - last 24 hr 01/21/18 01/21/18 01/21/18 10:15 11:58 16:04 WBC RBC Hgb Hct MCV MCH MCHC RDW Plt Count MPV Neut % (Auto) Lymph % (Auto) [place] % (Auto) Eos % (Auto) Baso % (Auto) Neut # (Auto) Lymph # (Auto) Kent # (Auto) Eos # (Auto) Baso # (Auto) Sodium Potassium Chloride Carbon Dioxide Anion Gap BUN Creatinine Est GFR ( Amer) Est GFR (Non-Af Amer) POC Glucose (mg/dL) 348 H 379 H Random Glucose Calcium Phosphorus Magnesium Total Bilirubin AST ALT Alkaline Phosphatase CK-MB (Mass) 7.59 H Troponin I 112.0000 H* Total Protein Albumin Globulin Albumin/Globulin Ratio 01/21/18 01/22/18 01/22/18 21:21 06:14 06:14 WBC 9.4 RBC 4.25 L Hgb 12.5 Hct 37.3 MCV 87.9 MCH 29.3 MCHC 33.4 RDW 16.2 H Plt Count 211 MPV 10.9 Neut % (Auto) 72.6 Lymph % (Auto) 14.8 L Kent % (Auto) 11.2 H Eos % (Auto) 0.6 Baso % (Auto) 0.8 Neut # (Auto) 6.8 Lymph # (Auto) 1.4 Kent # (Auto) 1.1 H Eos # (Auto) 0.1 Baso # (Auto) 0.1 Sodium 131 L Potassium 4.6 Chloride 92 L Carbon Dioxide 19 L Anion Gap 25 H BUN 71 H Creatinine 9.2 H* Est GFR ( Amer) 7 Est GFR (Non-Af Amer) 6 POC Glucose (mg/dL) 252 H Random Glucose 234 H Calcium 8.2 L Phosphorus 8.6 H Magnesium 2.7 H Total Bilirubin 0.5 AST 40 ALT 76 H Alkaline Phosphatase 74 CK-MB (Mass) Troponin I Total Protein 6.2 L Albumin 3.4 L Globulin 2.8 Albumin/Globulin Ratio 1.2 01/22/18 07:34 WBC RBC Hgb Hct MCV MCH MCHC RDW Plt Count MPV Neut % (Auto) Lymph % (Auto) [place] % (Auto) Eos % (Auto) Baso % (Auto) Neut # (Auto) Lymph # (Auto) Kent # (Auto) Eos # (Auto) Baso # (Auto) Sodium Potassium Chloride Carbon Dioxide Anion Gap BUN Creatinine Est GFR ( Amer) Est GFR (Non-Af Amer) POC Glucose (mg/dL) 248 H Random Glucose Calcium Phosphorus Magnesium Total Bilirubin AST ALT Alkaline Phosphatase CK-MB (Mass) Troponin I Total Protein Albumin Globulin Albumin/Globulin Ratio EKG/Cardiology Studies: Cardiology / EKG Studies 01/21/18 10:06 EKG [ELECTROCARDIOGRAM] Stat Comment: Mode Of Transportation: Reason For Exam: [facility], [facility] [place] Critical Care Progress Note - Nutrition Nutrition: Nutrition Category Date Time Status NPO Diet [DIET] Diets 01/22/18 Breakfast Active Assessment/Plan - Assessment and Plan (Free Text) Plan: Patient seen at bedside. Patient remains stable overnight, no IV drips, no IVF fluids, tolerating oral diet. 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 Patient has also been informed of the importance of compliance with medical therapy. Patient verbalized understanding. - Patient remains hemodynamically stable. - Date & Time Date: 01/22/18 Time: 10:48
[2018-01-22 09:11] VITALS: TEMP 98.1
[2018-01-22] MEDS ORDERED: Pantoprazole 40 mg EC Tab PO SCH (10:00)
[2018-01-22 11:07] VITALS: BP 151/66; PULSE 84; RESP 14; O2SAT 99
--- NOTE | 2018-01-22 13:16 | CP.PCM.DIS ---
Provider - Provider Date of Admission: 01/18/18 16:32 Attending physician: Jurgen Harley MD Primary care physician: NO FAMILY PROVIDER Time Spent in preparation of Discharge (in minutes): 45 Hospital Course - Lab Results Lab Results: Micro Results 01/18/18 17:06 Naris MRSA Culture (Admit) - Final MRSA NOT DETECTED Most Recent Lab Values WBC 9.4 K/uL (4.8-10.8) 01/22/18 06:14 RBC 4.25 Mil/uL (4.40-5.90) L 01/22/18 06:14 Hgb 12.5 g/dL (12.0-18.0) 01/22/18 06:14 Hct 37.3 % (35.0-51.0) 01/22/18 06:14 MCV 87.9 fL (80.0-94.0) 01/22/18 06:14 MCH 29.3 pg (27.0-31.0) 01/22/18 06:14 MCHC 33.4 g/dL (33.0-37.0) 01/22/18 06:14 RDW 16.2 % (11.5-14.5) H 01/22/18 06:14 Plt Count 211 K/uL (130-400) 01/22/18 06:14 MPV 10.9 fL (7.2-11.7) 01/22/18 06:14 Neut % (Auto) 72.6 % (50.0-75.0) 01/22/18 06:14 Lymph % (Auto) 14.8 % (20.0-40.0) L 01/22/18 06:14 Grafton % (Auto) 11.2 % (0.0-10.0) H 01/22/18 06:14 Eos % (Auto) 0.6 % (0.0-4.0) 01/22/18 06:14 Baso % (Auto) 0.8 % (0.0-2.0) 01/22/18 06:14 Neut # (Auto) 6.8 K/uL (1.8-7.0) 01/22/18 06:14 Lymph # (Auto) 1.4 K/uL (1.0-4.3) 01/22/18 06:14 Grafton # (Auto) 1.1 K/uL (0.0-0.8) H 01/22/18 06:14 Eos # (Auto) 0.1 K/uL (0.0-0.7) 01/22/18 06:14 Baso # (Auto) 0.1 K/uL (0.0-0.2) 01/22/18 06:14 Neutrophils % (Manual) 89 % (50-75) H 01/20/18 07:13 Lymphocytes % (Manual) 3 % (20-40) L 01/20/18 07:13 Monocytes % (Manual) 8 % (0-10) 01/20/18 07:13 Basophils % (Manual) 1 % (0-2) 01/18/18 17:29 Platelet Estimate Normal (NORMAL) 01/20/18 07:13 Hypochromasia (manual) Slight 01/20/18 07:13 Poikilocytosis (manual Slight 01/20/18 07:13 Anisocytosis (manual) Slight 01/20/18 07:13 Ovalocytes Slight 01/18/18 17:29 Pavan Cells Slight 01/18/18 17:29 PT 11.8 SECONDS (9.7-12.2) 01/21/18 06:19 INR 1.1 01/21/18 06:19 APTT 27 SECONDS (21-34) 01/21/18 06:19 Puncture Site L/f 01/21/18 09:54 pCO2 37 mm/Hg (35-45) 01/21/18 09:54 pO2 30 mm/Hg (80-100) L* 01/21/18 09:54 HCO3 20.1 mmol/L (21-28) L 01/21/18 09:54 ABG pH 7.35 (7.35-7.45) 01/21/18 09:54 ABG Total CO2 21.5 mmol/L (22-28) L 01/21/18 09:54 ABG O2 Saturation 48.8 % (95-98) L 01/21/18 09:54 ABG Base Excess -4.7 mmol/L (-2.0-3.0) L 01/21/18 09:54 Vickey Test Na 01/21/18 09:54 ABG Potassium 2.9 mmol/L (3.6-5.2) L 01/21/18 09:54 Sodium 140.0 mmol/l (132-148) 01/21/18 09:54 Chloride 108.0 mmol/L (98-107) H 01/21/18 09:54 Glucose 216 mg/dl (75-110) H 01/21/18 09:54 Lactate 1.2 mmol/L (0.7-2.1) 01/21/18 09:54 Liter Flow 4.0 01/21/18 09:54 Blood Gas Comments Venous blood as/ dr harley 01/21/18 09:54 Crit Value Called To Dr milton harley 01/21/18 09:54 Crit Value Called By Geoffrey de la rosa rcp 01/21/18 09:54 Crit Value Read Back Y 01/21/18 09:54 Blood Gas Notified Time 1000 01/21/18 09:54 Sodium 131 mmol/L (132-148) L 01/22/18 06:14 Potassium 4.6 mmol/L (3.6-5.2) 01/22/18 06:14 Chloride 92 mmol/L (98-107) L 01/22/18 06:14 Carbon Dioxide 19 mmol/L (22-30) L 01/22/18 06:14 Anion Gap 25 (10-20) H 01/22/18 06:14 BUN 71 mg/dL (9-20) H 01/22/18 06:14 Creatinine 9.2 mg/dL (0.8-1.5) H* 01/22/18 06:14 Est GFR ( Amer) 7 01/22/18 06:14 Est GFR (Non-Af Amer) 6 01/22/18 06:14 POC Glucose (mg/dL) 206 mg/dL (65-110) H 01/22/18 11:09 Random Glucose 234 mg/dL (75-110) H 01/22/18 06:14 Lactic Acid 1.0 mmol/L (0.7-2.1) 01/19/18 06:38 Calcium 8.2 mg/dl (8.6-10.4) L 01/22/18 06:14 Phosphorus 8.6 mg/dL (2.5-4.5) H 01/22/18 06:14 Magnesium 2.7 mg/dL (1.6-2.3) H 01/22/18 06:14 Total Bilirubin 0.5 mg/dL (0.2-1.3) 01/22/18 06:14 AST 40 U/L (17-59) 01/22/18 06:14 ALT 76 U/L (21-72) H 01/22/18 06:14 Alkaline Phosphatase 74 U/L (38-126) 01/22/18 06:14 Total Creatine Kinase 686 U/L (55-170) H 01/21/18 10:15 CK-MB (Mass) 7.59 ng/mL (0.0-3.38) H 01/21/18 10:15 Troponin I 112.0000 ng/mL (0.00-0.120) H* 01/21/18 10:15 Total Protein 6.2 g/dL (6.3-8.3) L 01/22/18 06:14 Albumin 3.4 g/dL (3.5-5.0) L 01/22/18 06:14 Globulin 2.8 gm/dL (2.2-3.9) 01/22/18 06:14 Albumin/Globulin Ratio 1.2 (1.0-2.1) 01/22/18 06:14 Ceruloplasmin 25 mg/dL (18-36) 01/18/18 08:07 Alpha Fetoprotein 1.5 ng/mL (0.0-7.5) 01/18/18 19:00 Procalcitonin 23.35 NG/ML (0.19-0.49) H 01/19/18 14:30 Arterial Blood Potassium 2.9 mmol/L (3.6-5.2) L 01/21/18 09:54 Random Vancomycin < 5.0 ug/mL 01/18/18 17:29 Anti-Mitochondrial Ab Negative (Negative) 01/18/18 08:07 Hepatitis A IgM Ab Negative (NEGATIVE) 01/18/18 17:29 Hep Bs Antigen Negative (NEGATIVE) 01/18/18 19:07 Hep B Core IgM Ab Negative (NEGATIVE) 01/18/18 17:29 Hepatitis Be Antigen Non-reactive (Non-reactive) 01/18/18 08:07 Hepatitis C Antibody Negative (NEGATIVE) 01/18/18 17:29 Discharge Exam - Head Exam Head Exam: ATRAUMATIC, NORMAL INSPECTION, NORMOCEPHALIC Discharge Plan - Follow Up Plan Condition: GOOD Disposition: Trans to Other Acute Care Hosp Referrals: FAMILY PROVIDER,NO [Primary Care Provider] -
--- NOTE | 2018-01-22 13:29 | CP.PCM.PN ---
Subjective - Date & Time of Evaluation Date of Evaluation: 01/22/18 Time of Evaluation: 10:50 - Subjective Subjective: Patient in intensive care unit appears to be frail Vital sign not stable patient is tachycardic with heart rate in the range of 137 -147 and irregular Patient waiting to be transferred to [facility] for pacemaker Before we do any dialysis because of instability. Lab reviewed with serum creatinine in the range of 9 potassium is okay although sodium 131 hyponatremic at that expected to be corrected and improved post hemodialysis. Patient is not coming back to this hospital he is going to stay at [facility] Objective - Vital Signs/Intake and Output Vital Signs (last 24 hours): Temp Pulse Resp BP Pulse Ox 98.1 F 84 14 151/66 H 99 01/22/18 08:00 01/22/18 11:00 01/22/18 11:00 01/22/18 10:16 01/22/18 11:00 Intake and Output: 01/22/18 01/22/18 06:59 18:59 Intake Total 0 240 Output Total 450 Balance 0 -210 - Labs Labs: 01/22/18 06:14 01/22/18 06:14 PT 11.8 SECONDS (9.7-12.2) 01/21/18 06:19 INR 1.1 01/21/18 06:19 APTT 27 SECONDS (21-34) 01/21/18 06:19
--- NOTE | 2018-01-22 17:19 | CARD ---
APPROVED REPORT EKG Measurement Heart [id number] <Conclusion> Sinus rhythm with 1st degree AV block Left axis deviation Right bundle branch block Possible Septal infarct, age undetermined Abnormal ECG
--- NOTE | 2018-01-22 18:05 | CARD ---
APPROVED REPORT EKG Measurement Heart [id number] <Conclusion> Sinus tachycardia with 1st degree AV block with Recurrent Ventricular triplets following a normally conducted beat in a bigeminal pattern. The origen is likely the LV inferolateral apex. Left axis deviation Right bundle branch block Septal infarct, age undetermined Abnormal ECG
== END 2018-01-22 11:25 | disposition short-term general hospital (02) | DRG 121 ==
LOC: C.9I 16:32
PROVIDERS: ADMIT Family Medicine; ATTEND Family Medicine
PROC: 5A1945Z Respiratory Ventilation, 24-96 Consecutive Hours (ICD-10-PCS; principal; 2018-01-18)
PROC: 5A1D70Z Performance of Urinary Filtration, Intermittent, Less than 6 Hours Per Day (ICD-10-PCS; 2018-01-18)
PROC: 5A1D70Z Performance of Urinary Filtration, Intermittent, Less than 6 Hours Per Day (ICD-10-PCS; 2018-01-19)
PROC: 5A1D70Z Performance of Urinary Filtration, Intermittent, Less than 6 Hours Per Day (ICD-10-PCS; 2018-01-21)
DX: T80.219A Unspecified infection due to central venous catheter, initial encounter (principal); I21.4 Non-ST elevation (NSTEMI) myocardial infarction; I13.2 Hypertensive heart and chronic kidney disease with heart failure and with stage 5 chronic kidney disease, or end stage renal disease; A41.9 Sepsis, unspecified organism; E87.5 Hyperkalemia; I44.2 Atrioventricular block, complete; I47.2 Ventricular tachycardia; I50.9 Heart failure, unspecified; N18.6 End stage renal disease; E11.43 Type 2 diabetes mellitus with diabetic autonomic (poly)neuropathy; E11.22 Type 2 diabetes mellitus with diabetic chronic kidney disease; I76 Septic arterial embolism; E87.2 Acidosis; E87.1 Hypo-osmolality and hyponatremia; F17.200 Nicotine dependence, unspecified, uncomplicated; G93.40 Encephalopathy, unspecified; I25.10 Atherosclerotic heart disease of native coronary artery without angina pectoris; K29.50 Unspecified chronic gastritis without bleeding; Z66 Do not resuscitate; Z79.4 Long term (current) use of insulin; Z91.19 Patient's noncompliance with other medical treatment and regimen; Z95.1 Presence of aortocoronary bypass graft; Z99.2 Dependence on renal dialysis; N25.81 Secondary hyperparathyroidism of renal origin; K31.84 Gastroparesis; Z89.421 Acquired absence of other right toe(s); E78.5 Hyperlipidemia, unspecified; D63.8 Anemia in other chronic diseases classified elsewhere; K22.10 Ulcer of esophagus without bleeding

== ENCOUNTER 2018-02-04 13:02 | Inpatient (IN) | payer MEDICAID ==
[2018-02-04 13:02] VITALS: BMI 28.8
--- NOTE | 2018-02-04 14:03 | C.PDOC ---
History Of Present Illness Pt was transferred from [place] ED for hemodialysis as apparently they are not capable of hemodialysis there. Dr. Wilson is audiovisual lead technician. Chart also states that pt has LUE cellulitis. Pt states that his last hemodialysis was 5 days ago as he skipped Thursday. Time Seen by Provider: 02/04/18 13:13 Chief Complaint (Nursing): Medical Clearance History Per: Patient, EMS Onset/Duration Of Symptoms: Days (5) Current Symptoms Are (Timing): Still Present Severity: Moderate Reports Recently: Seen In ED, Hospitalized Additional History Per: Prior Records Past Medical History Reviewed: Historical Data, Nursing Documentation, Vital Signs Vital Signs: Last Vital Signs Temp 98.1 F 02/04/18 13:51 Pulse 79 02/04/18 13:51 Resp 22 02/04/18 13:51 BP 156/101 H 02/04/18 13:51 Pulse Ox 96 02/04/18 13:51 - Medical History PMH: Anemia, CAD, Cardia Arrhythmia, CHF, Diabetes, HTN, Hypercholesterolemia, End Stage Renal Disease, Chronic Kidney Disease Surgical History: CABG (triple 2012), Cholecystectomy, Coronary Stent (3) - [facility] Procedures (01/18/18) APPLICATION OF SPLINT (11/04/04) BYPASS RIGHT BRACHIAL ARTERY TO UP ARM VEIN, OPEN APPROACH (07/05/17) CLOSURE SKIN & SUBCUTANEOUS NEC (07/07/03) CONTRAST ARTERIOGRAM-LEG (09/14/05) CORONAR ARTERIOGR-2 CATH (09/14/05) CORONARY ARTERY STENT INSERTION [id number] (09/14/05) DRAINAGE OF BLADDER WITH DRAINAGE DEVICE, VIA OPENING (03/13/17) EXCISION OF LEFT LUNG, PERCUTANEOUS APPROACH, DIAGNOSTIC (04/09/17) FLUOROSCOPY OF LEFT HEART USING LOW OSMOLAR CONTRAST (01/18/18) FLUOROSCOPY OF MULT COR ART USING L OSM CONTRAST (01/18/18) FLUOROSCOPY OF OTHER UPPER ARTERIES USING L OSM CONTRAST (04/06/17) FLUOROSCOPY OF SING COR A GRAFT USING L OSM CONTRAST (04/06/17) INJECT/INFUSE ELECTROLYT (06/02/13) INJECT/INFUSE NEC (06/02/13) INJECT/INFUSE PLATELET INHIBITOR (09/14/05) INSERT INFUSION DEV IN L INT JUGULAR VEIN, PERC (07/05/17) INSERT INFUSION DEV IN R INT JUGULAR VEIN, PERC (07/05/17) INSERTION OF ENDOTRACHEAL AIRWAY INTO TRACHEA, VIA OPENING (01/18/18) INSERTION OF INFUSION DEV INTO L FEMOR VEIN, PERC APPROACH (01/18/18) INSERTION OF INFUSION DEV INTO SUP VENA CAVA, PERC APPROACH (04/27/17) INSERTION OF INFUSION DEVICE INTO R ATRIUM, PERC APPROACH (04/27/17) INSERTION OF TWO VASCULAR STENTS (09/14/05) INSPECTION OF UPPER INTESTINAL TRACT, ENDO (04/06/17) INSRT OF DRUG-ELUTING CORON ARTERY STENTS(S) (09/14/05) INTRODUCE OF OTH THERAP SUBST INTO RESP TRACT, VIA OPENING (04/09/17) LEFT HEART CARDIAC CATH (09/14/05) LT HEART ANGIOCARDIOGRAM (09/14/05) MEASURE OF CARDIAC SAMPL & PRESSURE, L HEART, PERC APPROACH (01/18/18) NEBULIZER THERAPY (12/01/12) PERC TRANSLUMINAL CORON ANGIOPLASTY PTCA OR CORON ATHERECT (09/14/05) PERFORMANCE OF CARDIAC OUTPUT, SINGLE, MANUAL (01/18/18) PERFORMANCE OF CARDIAC PACING, CONTINUOUS (01/18/18) PERFORMANCE OF URINARY FILTRATION, MULTIPLE (04/09/17) PERFORMANCE OF URINARY FILTRATION, SINGLE (03/09/17) PROCEDURE ON TWO VESSELS (09/14/05) REMOVAL OF INFUSION DEVICE FROM UPPER VEIN, WATERSHED PROGRAM MANAGER APPROACH (04/27/17) REMOVAL OF INFUSION DEVICE FROM UPPER VEIN, PERC APPROACH (07/05/17) REMOVE INFUSION DEV FROM HEAD & NECK SUBCU/FASCIA, WATERSHED PROGRAM MANAGER (04/09/17) RESPIRATORY VENTILATION, 24-96 CONSECUTIVE HOURS (01/18/18) RESPIRATORY VENTILATION, LESS THAN 24 CONSECUTIVE HOURS (01/18/18) TETANUS TOXOID ADMINIST (07/07/03) TRANSFUSE NONAUT RED BLOOD CELLS IN PERIPH VEIN, PERC (03/13/17) ULTRASONOGRAPHY OF HEART WITH AORTA, TRANSESOPHAGEAL (04/09/17) ULTRASONOGRAPHY OF LEFT JUGULAR VEINS, GUIDANCE (07/05/17) ULTRASONOGRAPHY OF RIGHT JUGULAR VEINS, GUIDANCE (07/05/17) ULTRASONOGRAPHY OF SUPERIOR VENA CAVA, GUIDANCE (04/27/17) Family History: States: Unknown Family Hx - Social History Hx Tobacco Use: No Hx Alcohol Use: Yes Hx Substance Use: Yes - Immunization History Hx Tetanus Toxoid Vaccination: No Hx Influenza Vaccination: No Hx Pneumococcal Vaccination: No Review Of Systems Constitutional: Positive for: Weakness Cardiovascular: Positive for: Paroxysmal Noc. Dyspnea Respiratory: Positive for: Shortness of Breath Gastrointestinal: Negative for: Abdominal Pain Skin: Positive for: Rash Neurological: Negative for: Weakness, Seizures Physical Exam - Physical Exam Appears: No Acute Distress, Chronically Ill Skin: Warm, Dry, Rash (left forearm erythema) Head: Atraumatic Eye(s): bilateral: PERRL Neck: Normal ROM, Supple Cardiovascular: Rhythm Irregular Respiratory: No Accessory Muscle Use Gastrointestinal/Abdominal: Soft Extremity: Normal ROM Neurological/Psych: Oriented x3, Normal Motor, Normal Sensation ED Course And Treatment O2 Sat by Pulse Oximetry: 96 Pulse Ox Interpretation: Normal Progress Note: Pt was already treated medically for hyperkalemia at [place] [facility]. - Physician Consult Information Physician Contacted: Philip Wilson (Renal) Outcome Of Conversation: He is aware of pt and will dialyse today. Disposition Discussed With : Tuan Franklin (personal finance instructor) Comment: He accepted pt on his service as pt's PMD (Dr. Freedman) deferred to on- call physician. Doctor Will See Patient In The: Hospital - Disposition Disposition: HOSPITALIZED Disposition Time: 14:45 Condition: GUARDED - Clinical Impression Clinical Impression: ESRD needing dialysis, Cellulitis
--- NOTE | 2018-02-04 15:38 | CP.PCM.CON ---
History of Present Illness - History of Present Illness History of Present Illness: Nephrology Consultation Note: Assessment: critical chest pain, missed HD, CHF exacerbation, hyperkalemia, left arm cellulitis s/p NSTEMI, cardiac arrest, CHF lvef 30% hx of esophageal ulceration, gastroparesis Diabetic chronic Kidney Disease (E11.22) Hypertensive Chronic Kidney Disease (I12.0) End stage renal disease (N18.6) dependence on hemodialysis (Z99.2) (TTS) Anemia (D64.9), Hyperphosphatemia (E83.39), Secondary Hyperparathyroidism (E21.1 ), HTN (I12.0) CAD s/p CABG chronic urine retention Plan: HD today as ordered per TTS schedule. continue with Nephrovite 1 tab/day. last Hb 9.7 hence TAMICA with HD as ordered maintain hemodynamic stable. Glycemic control, Dialysis consistent diet added phos binders. pt non-compliant to binders as outpt Further work up/management as per primary team Dose meds/antibiotics for ESRD status. Avoid fleets enema/magnesium based laxatives. bladder scan r/o urine retention. consider intermittent straight cath or indwelling myles consider doppler left arm r/o DVT. antibiotics as per primary team for cellulitis. pt ordered for vanco/zosyn @ [facility] Thanks for allowing me to participate in care of your patient. Will follow patient with you. Please call if any Qs. had d/w team. Dr Philip Wilson Office: [phone] CC: SOB reason for consult: ESRD HPI: Pt is a 57 y/o M with hx of ESRD on hemodialysis (TTS) via permacath, last dialysis sat, chronic anemia, hyperphosphatemia, secondary hyperparathyroidism, Diabetes Mellitus, hypertension, urine retention s/p myles , hx of permacath related infection with psuedomonas and septic embolic, CAD s/ p CABG, esophageal ulceration, gastroparesis, recent admission for NSTEMI/ cardiac arrest/pulm edema s/p AICD came with c/o shortness of breath, chest pain and poor sleep initially at [facility] then transferred to [facility]. left arm swelling/redness and pain worsening, he was given antibiotics Rx as outpt, pt hadn't started outpt HD: refuses HD for 4 hrs as ordered, regularly cuts treatment time to 3 hrs only, counselled and educated multiple times. often misses HD as well ROS:c/o chest pain, SOB and left arm swelling. says myles was removed last hospitalization Physical Examination: General Appearance: pt comfortable not in acute distress, co--operative Vitals reviewed and noted as below Head; Atraumatic, normocephalic ENT: normal mucosa, no rash/ulcer EYES: Pupils are equal, round and reactive to light accommodation. Eye muscles and extraocular movement intact. Sclera is anicteric. Neck; supple no lymphadenopathy, no thyromegaly or bruit Lungs: Normal respiratory rate/effort. Breath sounds bilateral equal and clear b /l Heart: Normal rate. s1s2 normal. No rub or gallop. left side AICD + Extremities: no edema. No varicose veins. 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 Normal turgor. No rash. Palpitation: Normal elasticity for age Abdomen: Abdomen is soft. Bowel sounds +. There is no abdominal tenderness, no guarding/rigidity or organomegaly Psych: Ao x 3, normal affect mood MSK: no joint tenderness or swelling. Digits and nails normal, no deformity. had toe amputations : kidney or bladder not palpable. used to have chronic myles Access: patent AVF Rt forearm Labs/imaging reviewed. Past medical history, past surgical history, family history, social history, allergy reviewed and noted as below Family Hx: no hx of CKD. Non contributory Past Patient History - Infectious Disease Hx of Infectious Diseases: None - Tetanus Immunizations Tetanus Immunization: Unknown - Past Medical History & Family History Past Medical History?: Yes - Past Social History Smoking Status: Current Some Days Smoker - CARDIAC Hx Cardia Arrhythmia: Yes Hx Congestive Heart Failure: Yes Hx Hypercholesterolemia: Yes Hx Hypertension: Yes - PULMONARY Hx Respiratory Disorders: Yes Other/Comment: PULMONARY EDEMA - NEUROLOGICAL Hx Neurological Disorder: Yes (NEUROPATHY) HX Cerebrovascular Accident: Yes Hx Dizziness: Yes (SYNCOPE) - HEENT Hx HEENT Problems: No (CONTACT LENSES) - RENAL Hx Chronic Kidney Disease: Yes - ENDOCRINE/METABOLIC Hx Endocrine Disorders: Yes Hx Diabetes Mellitus Type 2: Yes - HEMATOLOGICAL/ONCOLOGICAL Hx Anemia: Yes - INTEGUMENTARY Hx Dermatological Problems: Yes Other/Comment: righty lower ext rash, pt stated "I have had it about 20 yrs" - MUSCULOSKELETAL/RHEUMATOLOGICAL Hx Falls: No - GASTROINTESTINAL Hx Gastrointestinal Disorders: Yes (GASTROPARESIS) - GENITOURINARY/GYNECOLOGICAL Hx Genitourinary Disorders: Yes (URINARY RETENTION-MYLES) Hx Urinary Tract Infection: Yes - PSYCHIATRIC Hx Substance Use: Yes - SURGICAL HISTORY Hx Cholecystectomy: Yes Hx Coronary Artery Bypass Graft: Yes (2012) Hx Coronary Stent: Yes (3) - ANESTHESIA Hx Anesthesia: Yes Hx Anesthesia Reactions: No Meds Allergies/Adverse Reactions: Allergies Allergy/AdvReac Type Severity Reaction Status Date / Time shellfish derived Allergy ANAPHYLAXIS Verified 02/04/18 07:05 Seafood Allergy ANAPHYLAXIS Uncoded 02/04/18 07:05 Results - Vital Signs Recent Vital Signs: Last Vital Signs Temp 98.1 F 02/04/18 13:51 Pulse 85 02/04/18 15:06 Resp 20 02/04/18 15:06 BP 153/93 H 02/04/18 15:06 Pulse Ox 100 02/04/18 15:06
[2018-02-04] MEDS: EPOETIN ALFA 4,000 UNIT/ML ML Dialysis IV SCH (17:16)
[2018-02-05] MEDS: Multivitamin Vitamin B Complex (Nephro-Vite) Tab PO SCH (08:53)
[2018-02-05] MEDS: Metoprolol Succinate 25 mg XL Tab PO SCH (10:24)
[2018-02-05] MEDS: Pantoprazole 40 mg EC Tab PO SCH (10:24)
[2018-02-05 11:16] LABS: BASO # 0.1 K/uL (0.0-0.2); BASO % 2.3 % (0.0-2.0); EOS # 0.1 K/uL (0.0-0.7); EOS % 2.5 % (0.0-4.0); HEMOGLOBIN 9.2 g/dL (12.0-18.0); LYMPH # 0.7 K/uL (1.0-4.3); LYMPH % 16.2 % (20.0-40.0); MEAN CELL VOLUME 86.9 fL (80.0-94.0); MEAN CORPUSCULAR HGB CONC 32.2 g/dL (33.0-37.0); MEAN PLATELET VOLUME 9.9 fL (7.2-11.7); MONO # 0.3 K/uL (0.0-0.8); MONO % 7.9 % (0.0-10.0); NEUT % 71.1 % (50.0-75.0); RBC 3.29 Mil/uL (4.40-5.90); RED CELL DISTRIBUTION WIDTH 16.4 % (11.5-14.5)
[2018-02-05 11:18] LABS: WHITE BLOOD COUNT 4.3 K/uL (4.8-10.8)
[2018-02-05] MEDS ORDERED: (Novolin R) Insulin Human Regular 100 units/ml vial SC SCH (11:30)
[2018-02-05 11:32] LABS: ALB/GLOB RATIO 1.3 (1.0-2.1); ALBUMIN 3.2 g/dL (3.5-5.0); CALCIUM 8.2 mg/dl (8.6-10.4)
--- NOTE | 2018-02-05 14:53 | CP.PCM.PN ---
Subjective - Date & Time of Evaluation Date of Evaluation: 02/05/18 Time of Evaluation: 14:51 - Subjective Subjective: Nephrology Consultation Note: Assessment: STable chest pain, missed HD, CHF exacerbation, hyperkalemia, left arm cellulitis s/p NSTEMI, cardiac arrest, CHF lvef 30% hx of esophageal ulceration, gastroparesis Diabetic chronic Kidney Disease (E11.22) Hypertensive Chronic Kidney Disease (I12.0) End stage renal disease (N18.6) dependence on hemodialysis (Z99.2) (TTS) Anemia (D64.9), Hyperphosphatemia (E83.39), Secondary Hyperparathyroidism (E21.1 ), HTN (I12.0) CAD s/p CABG chronic urine retention Plan: HD tomorrow as ordered per TTS schedule. continue with Nephrovite 1 tab/day. last Hb 9.7 hence TAMICA with HD as ordered maintain hemodynamic stable. Glycemic control, Dialysis consistent diet added phos binders. pt non-compliant to binders as outpt Further work up/management as per primary team Dose meds/antibiotics for ESRD status. Avoid fleets enema/magnesium based laxatives. continue with intermittent straight cath or indwelling myles, pt declined self cath at home. Thanks for allowing me to participate in care of your patient. Will follow patient with you. Please call if any Qs. had d/w team. Dr Philip Wilson Office: [phone] reason for consult: ESRD HPI: Pt is a 57 y/o M with hx of ESRD on hemodialysis (TTS) via permacath, last dialysis sat, chronic anemia, hyperphosphatemia, secondary hyperparathyroidism, Diabetes Mellitus, hypertension, urine retention s/p myles , hx of permacath related infection with psuedomonas and septic embolic, CAD s/ p CABG, esophageal ulceration, gastroparesis, recent admission for NSTEMI/ cardiac arrest/pulm edema s/p AICD came with c/o shortness of breath, chest pain and poor sleep initially at [facility] then transferred to [facility] [place]. left arm swelling/redness and pain worsening, he was given antibiotics Rx as outpt, pt hadn't started outpt HD: refuses HD for 4 hrs as ordered, regularly cuts treatment time to 3 hrs only, counselled and educated multiple times. often misses HD as well ROS:denies chest pain, improved SOB and left arm swelling. says myles was removed last hospitalization, reinserted 02/04/18 due to urine retention Physical Examination: General Appearance: pt comfortable not in acute distress, co--operative Vitals reviewed and noted as below Head; Atraumatic, normocephalic ENT: normal mucosa, no rash/ulcer EYES: Pupils are equal, round and reactive to light accommodation. Eye muscles and extraocular movement intact. Sclera is anicteric. Neck; supple no lymphadenopathy, no thyromegaly or bruit Lungs: Normal respiratory rate/effort. Breath sounds bilateral equal and clear b /l Heart: Normal rate. s1s2 normal. No rub or gallop. left side AICD + Extremities: no edema. No varicose veins. 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 Normal turgor. No rash. Palpitation: Normal elasticity for age Abdomen: Abdomen is soft. Bowel sounds +. There is no abdominal tenderness, no guarding/rigidity or organomegaly Psych: Ao x 3, normal affect mood MSK: no joint tenderness or swelling. Digits and nails normal, no deformity. had toe amputations : kidney or bladder not palpable. used to have chronic myles Access: patent AVF Rt forearm Labs/imaging reviewed. Past medical history, past surgical history, family history, social history, allergy reviewed and noted as below Family Hx: no hx of CKD. Non contributory Objective - Vital Signs/Intake and Output Vital Signs (last 24 hours): Temp Pulse Resp BP Pulse Ox 98.5 F 80 20 126/72 97 02/05/18 07:00 02/05/18 12:00 02/05/18 07:00 02/05/18 07:00 02/05/18 07:00 Intake and Output: 02/05/18 02/05/18 06:59 18:59 Output Total 300 Balance -300 - Medications Medications: Current Medications Acetaminophen (Tylenol 325mg Tab) 650 mg PO Q6 PRN PRN Reason: Pain, moderate (4-7) Last Admin: 02/05/18 13:18 Dose: 650 mg Amlodipine Besylate (Norvasc) 10 mg PO DAILY [facility] Last Admin: 02/05/18 10:24 Dose: 10 mg Aspirin (Ecotrin) 81 mg PO DAILY [facility] Last Admin: 02/05/18 10:24 Dose: 81 mg Clonidine HCl (Catapres) 0.3 mg PO TID [facility] Last Admin: 02/05/18 13:13 Dose: 0.3 mg Epoetin Jasiel (Procrit) 4,000 unit IV TTS [facility] Last Admin: 02/04/18 17:16 Dose: 4,000 unit Gabapentin (Neurontin) 100 mg PO TID [facility] Last Admin: 02/05/18 13:13 Dose: 100 mg Heparin Sodium (Porcine) (Heparin) 5,000 units SC Q12 [facility] Last Admin: 02/05/18 10:24 Dose: 5,000 units Hydralazine HCl (Apresoline) 25 mg PO TID [facility] Last Admin: 02/05/18 10:24 Dose: 25 mg Vancomycin/Sodium Chloride (Vancomycin 1 Gm/Ns 200 Ml) 1 gm in 200 mls @ 133 mls/hr IVPB TTS [facility] PRN Reason: Protocol Stop: 02/11/18 10:01 Insulin Human Regular (Novolin R) 0 unit SC ACHS [facility] PRN Reason: Protocol Last Admin: 02/05/18 12:34 Dose: 6 units Isosorbide Mononitrate (Imdur) 60 mg PO DAILY [facility] Last Admin: 02/05/18 10:24 Dose: 60 mg Losartan Potassium (Cozaar) 100 mg PO DAILY [facility] Last Admin: 02/05/18 10:24 Dose: 100 mg Metoprolol Succinate (Toprol Xl) 25 mg PO DAILY [facility] Last Admin: 02/05/18 10:24 Dose: 25 mg Pantoprazole Sodium (Protonix Ec Tab) 40 mg PO DAILY [facility] Last Admin: 02/05/18 10:24 Dose: 40 mg Rosuvastatin Calcium (Crestor) 20 mg PO HS [facility] Last Admin: 02/04/18 21:55 Dose: 20 mg Sevelamer Carbonate (Renvela) 1,600 mg PO TIDCC [facility] Last Admin: 02/05/18 12:46 Dose: 1,600 mg Tamsulosin HCl (Flomax) 0.4 mg PO DAILY [facility] Last Admin: 02/05/18 10:24 Dose: 0.4 mg Vitamin B Complex/Vit C/Folic Acid (Nephro-Gail) 1 tab PO 0800 [facility] Last Admin: 02/05/18 08:53 Dose: 1 tab - Labs Labs: 02/05/18 11:05 02/05/18 11:05
--- NOTE | 2018-02-05 15:19 | CP.PCM.PN ---
Subjective - Date & Time of Evaluation Date of Evaluation: 02/05/18 Time of Evaluation: 15:17 - Subjective Subjective: Internal Medicine Progress Note - Dr Franklin Service Patient seen and examined at bedside. Per nursing no acute events overnight. Patient states that he went to [facility] because he missed his dialysis. Patient has a history of non-complaince. He was subsequently transferred to [facility] and underwent emergent dialysis yesterday. Patient was also found to have left arm redness and swelling that started a few days ago. Offers no other complaints at this time. Denies headaches, dizziness, cp, palpitations, sob, abdominal pain, changes in bowel habits. Patient states that he wishes to be DNR/DNI. Objective - Vital Signs/Intake and Output Vital Signs (last 24 hours): Temp Pulse Resp BP Pulse Ox 98.5 F 80 20 126/72 97 02/05/18 07:00 02/05/18 12:00 02/05/18 07:00 02/05/18 07:00 02/05/18 07:00 Intake and Output: 02/05/18 02/05/18 06:59 18:59 Output Total 300 Balance -300 - Medications Medications: Current Medications Acetaminophen (Tylenol 325mg Tab) 650 mg PO Q6 PRN PRN Reason: Pain, moderate (4-7) Last Admin: 02/05/18 13:18 Dose: 650 mg Amlodipine Besylate (Norvasc) 10 mg PO DAILY [facility] Last Admin: 02/05/18 10:24 Dose: 10 mg Aspirin (Ecotrin) 81 mg PO DAILY [facility] Last Admin: 02/05/18 10:24 Dose: 81 mg Clonidine HCl (Catapres) 0.3 mg PO TID [facility] Last Admin: 02/05/18 13:13 Dose: 0.3 mg Epoetin Jasiel (Procrit) 4,000 unit IV TTS [facility] Last Admin: 02/04/18 17:16 Dose: 4,000 unit Gabapentin (Neurontin) 100 mg PO TID [facility] Last Admin: 02/05/18 13:13 Dose: 100 mg Heparin Sodium (Porcine) (Heparin) 5,000 units SC Q12 [facility] Last Admin: 02/05/18 10:24 Dose: 5,000 units Hydralazine HCl (Apresoline) 25 mg PO TID [facility] Last Admin: 02/05/18 10:24 Dose: 25 mg Vancomycin/Sodium Chloride (Vancomycin 1 Gm/Ns 200 Ml) 1 gm in 200 mls @ 133 mls/hr IVPB TTS [facility] PRN Reason: Protocol Stop: 02/11/18 10:01 Insulin Human Regular (Novolin R) 0 unit SC ACHS [facility] PRN Reason: Protocol Last Admin: 02/05/18 12:34 Dose: 6 units Isosorbide Mononitrate (Imdur) 60 mg PO DAILY [facility] Last Admin: 02/05/18 10:24 Dose: 60 mg Losartan Potassium (Cozaar) 100 mg PO DAILY [facility] Last Admin: 02/05/18 10:24 Dose: 100 mg Metoprolol Succinate (Toprol Xl) 25 mg PO DAILY [facility] Last Admin: 02/05/18 10:24 Dose: 25 mg Pantoprazole Sodium (Protonix Ec Tab) 40 mg PO DAILY [facility] Last Admin: 02/05/18 10:24 Dose: 40 mg Rosuvastatin Calcium (Crestor) 20 mg PO HS [facility] Last Admin: 02/04/18 21:55 Dose: 20 mg Sevelamer Carbonate (Renvela) 1,600 mg PO TIDCC [facility] Last Admin: 02/05/18 12:46 Dose: 1,600 mg Tamsulosin HCl (Flomax) 0.4 mg PO DAILY [facility] Last Admin: 02/05/18 10:24 Dose: 0.4 mg Vitamin B Complex/Vit C/Folic Acid (Nephro-Ninfa) 1 tab PO 0800 [facility] Last Admin: 02/05/18 08:53 Dose: 1 tab - Labs Labs: 02/05/18 11:05 02/05/18 11:05 - Constitutional Appears: Non-toxic, No Acute Distress, Chronically Ill - Head Exam Head Exam: ATRAUMATIC, NORMAL INSPECTION, NORMOCEPHALIC - Eye Exam Eye Exam: EOMI, Normal appearance - ENT Exam ENT Exam: Mucous Membranes Moist - Neck Exam Neck Exam: Full ROM - Respiratory Exam Respiratory Exam: Clear to Ausculation Bilateral, NORMAL BREATHING PATTERN. absent: Rales, Rhonchi, Wheezes - Cardiovascular Exam Cardiovascular Exam: REGULAR RHYTHM, +S1, +S2 - GI/Abdominal Exam GI & Abdominal Exam: Soft. absent: Guarding, Rigid, Tenderness - Rectal Exam Rectal Exam: Deferred - Extremities Exam Additional comments: Left forearm: erythematous, warm to touch, pulses intact - Neurological Exam Neurological Exam: Alert, Awake, Oriented x3 - Psychiatric Exam Psychiatric exam: Normal Affect, Normal Mood - Skin Skin Exam: Dry, Normal Color, Warm Assessment and Plan - Assessment and Plan (Free Text) Assessment: A/P: Patient is a 57 year old male with past medical history of Diabetes mellitus, HTN, ESRD on HD, non-compliance, CAD s/p CABG, Heart block s/p pacemaker, NSTEMI, GI bleed presents to [facility] after missing Dialysis appointment. ESRD on HD (TThS) -Stable, afebile (Tmax 100.0) -Patient went for Hemodialysis yesterday -Continue HD TThS -Renvela 1,600mg PO TID, Nephro-ninfa 1 tab PO daily -Nephro on consult, help appreciated Left Forearm Cellulitis -Patient started on Vancomycin 1 gm TThS after Dialysis and Zosyn 2.25mg Q12H IVPB (renally dosed) -Upper extremity dopplers ordered to rule out DVT -Wound care on consult -Infectious Disease on consult, help appreciated History of Hypertension -Continue Cozaar 100mg PO daily -Continue Metoprolol 50mg PO BID, Lisinopril 5mg PO daily -Aspirin 81mg PO daily -Hydralazine 25mg PO TID, Clonidine 0.3mg PO TID -Monitor vitals History of CAD s/p CABG -Patient with pacemaker -Continue Aspirin 81mg PO daily -Continue Crestor 20mg PO HS, Imdur 60mg PO daily Anemia -Continue Procrit 4,000 unit TTS History of Diabetes mellitus/Peripheral Neuropathy -Gabapentin 100mg PO TID -High dose ISS, accuchecks ACHS Chronic Urine Retention -Indwelling myles -Flomax 0.4mg PO daily GI/DVT ppx: -Protonix 40mg PO daily -SCDs Plan discussed with Dr Noemi Park DO PGY-2
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
[2018-02-05] MEDS: (Novolin R) Insulin Human Regular 100 units/ml vial SC SCH ×2 (17:10→22:02)
[2018-02-05] MEDS: Piperacillin/Tazobact 3.375 GM in Sodium Chloride 100 ML IVPB SCH (17:51)
[2018-02-06] MEDS: Piperacillin/Tazobact 3.375 GM in Sodium Chloride 100 ML IVPB SCH ×3 (01:00→17:44)
[2018-02-06] MEDS: (Novolin R) Insulin Human Regular 100 units/ml vial SC SCH ×4 (07:48→21:54)
[2018-02-06] MEDS: Multivitamin Vitamin B Complex (Nephro-Vite) Tab PO SCH (08:41)
[2018-02-06] MEDS: Pantoprazole 40 mg EC Tab PO SCH (09:56)
[2018-02-06] MEDS: Metoprolol Succinate 25 mg XL Tab PO SCH (09:56)
[2018-02-06] MEDS ORDERED: Vancomycin 1 gm/NS 200 ml 1 GM/200 ML BAG IVPB SCH (10:00)
[2018-02-06] MEDS: EPOETIN ALFA 4,000 UNIT/ML ML Dialysis IV SCH (10:32)
--- NOTE | 2018-02-06 18:35 | CP.PCM.PN ---
Subjective - Date & Time of Evaluation Date of Evaluation: 02/06/18 Time of Evaluation: 18:33 - Subjective Subjective: Nephrology Consultation Note: Assessment: Stable chest pain, missed HD, CHF exacerbation, hyperkalemia, left arm cellulitis s/p NSTEMI, cardiac arrest, CHF lvef 30% hx of esophageal ulceration, gastroparesis Diabetic chronic Kidney Disease (E11.22) Hypertensive Chronic Kidney Disease (I12.0) End stage renal disease (N18.6) dependence on hemodialysis (Z99.2) (TTS) Anemia (D64.9), Hyperphosphatemia (E83.39), Secondary Hyperparathyroidism (E21.1 ), HTN (I12.0) CAD s/p CABG chronic urine retention Plan: HD TTS continue with Nephrovite 1 tab/day. Epo w/ HD bp stable cont phos binders continue with intermittent straight cath or indwelling myles, pt declined self cath at home. S: seen and examined, no acute events o/n feels well Physical Examination: General Appearance: pt comfortable not in acute distress, co--operative Vitals reviewed and noted as below Head; Atraumatic, normocephalic ENT: normal mucosa, no rash/ulcer EYES: Pupils are equal, round and reactive to light accommodation. Eye muscles and extraocular movement intact. Sclera is anicteric. Neck; supple no lymphadenopathy, no thyromegaly or bruit Lungs: Normal respiratory rate/effort. Breath sounds bilateral equal and clear b /l Heart: Normal rate. s1s2 normal. No rub or gallop. left side AICD + Extremities: no edema. No varicose veins. 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 Normal turgor. No rash. Palpitation: Normal elasticity for age Abdomen: Abdomen is soft. Bowel sounds +. There is no abdominal tenderness, no guarding/rigidity or organomegaly Psych: Ao x 3, normal affect mood MSK: no joint tenderness or swelling. Digits and nails normal, no deformity. had toe amputations : kidney or bladder not palpable. used to have chronic myles Access: patent AVF Rt forearm Objective - Vital Signs/Intake and Output Vital Signs (last 24 hours): Temp Pulse Resp BP Pulse Ox 98.2 F 82 20 104/57 L 99 02/06/18 16:15 02/06/18 16:46 02/06/18 16:15 02/06/18 17:55 02/06/18 16:15 Intake and Output: 02/06/18 02/06/18 06:59 18:59 Intake Total 490 800 Output Total 400 100 Balance 90 700 - Medications Medications: Current Medications Acetaminophen (Tylenol 325mg Tab) 650 mg PO Q6 PRN PRN Reason: Pain, moderate (4-7) Last Admin: 02/06/18 13:27 Dose: 650 mg Amlodipine Besylate (Norvasc) 10 mg PO DAILY [facility] Last Admin: 02/06/18 09:55 Dose: Not Given Aspirin (Ecotrin) 81 mg PO DAILY [facility] Last Admin: 02/06/18 09:55 Dose: Not Given Clonidine HCl (Catapres) 0.3 mg PO TID [facility] Last Admin: 02/06/18 17:54 Dose: Not Given Epoetin Jasiel (Procrit) 4,000 unit IV TTS [facility] Last Admin: 02/06/18 10:32 Dose: 4,000 unit Gabapentin (Neurontin) 100 mg PO TID [facility] Last Admin: 02/06/18 17:55 Dose: 100 mg Heparin Sodium (Porcine) (Heparin) 5,000 units SC Q12 [facility] Last Admin: 02/06/18 09:55 Dose: Not Given Hydralazine HCl (Apresoline) 25 mg PO TID [facility] Last Admin: 02/06/18 17:54 Dose: Not Given Vancomycin/Sodium Chloride (Vancomycin 1 Gm/Ns 200 Ml) 1 gm in 200 mls @ 133 mls/hr IVPB TTS [facility] PRN Reason: Protocol Stop: 02/11/18 10:01 Last Admin: 02/06/18 13:25 Dose: 133 mls/hr Piperacillin Sod/Tazobactam (Sod 3.375 gm/ Sodium Chloride) 100 mls @ 200 mls/ hr IVPB Q8H [facility] PRN Reason: Protocol Last Admin: 02/06/18 17:44 Dose: 200 mls/hr Insulin Human Regular (Novolin R) 0 unit SC ACHS [facility] PRN Reason: Protocol Last Admin: 02/06/18 17:43 Dose: 6 units Isosorbide Mononitrate (Imdur) 60 mg PO DAILY [facility] Last Admin: 02/06/18 09:55 Dose: Not Given Losartan Potassium (Cozaar) 100 mg PO DAILY [facility] Last Admin: 02/06/18 09:55 Dose: Not Given Metoprolol Succinate (Toprol Xl) 25 mg PO DAILY [facility] Last Admin: 02/06/18 09:56 Dose: Not Given Pantoprazole Sodium (Protonix Ec Tab) 40 mg PO DAILY [facility] Last Admin: 02/06/18 09:56 Dose: Not Given Rosuvastatin Calcium (Crestor) 20 mg PO HS [facility] Last Admin: 02/05/18 21:49 Dose: 20 mg Sevelamer Carbonate (Renvela) 1,600 mg PO TIDCC [facility] Last Admin: 02/06/18 17:55 Dose: 1,600 mg Tamsulosin HCl (Flomax) 0.4 mg PO DAILY [facility] Last Admin: 02/06/18 09:55 Dose: Not Given Vitamin B Complex/Vit C/Folic Acid (Nephro-Gail) 1 tab PO 0800 [facility] Last Admin: 02/06/18 08:41 Dose: Not Given - Labs Labs: 02/05/18 11:05 02/05/18 11:05
[2018-02-07] MEDS: Piperacillin/Tazobact 3.375 GM in Sodium Chloride 100 ML IVPB SCH ×3 (00:47→16:33)
[2018-02-07] MEDS: (Novolin R) Insulin Human Regular 100 units/ml vial SC SCH ×4 (08:37→21:39)
[2018-02-07] MEDS: Multivitamin Vitamin B Complex (Nephro-Vite) Tab PO SCH (08:38)
[2018-02-07] MEDS: Pantoprazole 40 mg EC Tab PO SCH (10:11)
[2018-02-07] MEDS: Metoprolol Succinate 25 mg XL Tab PO SCH (10:11)
--- NOTE | 2018-02-07 15:09 | CP.PCM.PN ---
Subjective - Date & Time of Evaluation Date of Evaluation: 02/07/18 Time of Evaluation: 09:00 - Subjective Subjective: less redness and swelling afebrile in NAD Objective - Vital Signs/Intake and Output Vital Signs (last 24 hours): Temp Pulse Resp BP Pulse Ox 98.1 F 82 20 150/82 98 02/07/18 07:00 02/07/18 07:00 02/07/18 07:00 02/07/18 07:00 02/07/18 07:00 Intake and Output: 02/07/18 02/07/18 06:59 18:59 Intake Total 800 480 Output Total 100 Balance 700 480 - Medications Medications: Current Medications Acetaminophen (Tylenol 325mg Tab) 650 mg PO Q6 PRN PRN Reason: Pain, moderate (4-7) Last Admin: 02/06/18 22:08 Dose: 650 mg Amlodipine Besylate (Norvasc) 10 mg PO DAILY [facility] Last Admin: 02/07/18 10:11 Dose: 10 mg Aspirin (Ecotrin) 81 mg PO DAILY [facility] Last Admin: 02/07/18 10:11 Dose: 81 mg Clonidine HCl (Catapres) 0.3 mg PO Q8H [facility] Epoetin Jasiel (Procrit) 4,000 unit IV TTS [facility] Last Admin: 02/06/18 10:32 Dose: 4,000 unit Gabapentin (Neurontin) 100 mg PO Q8H [facility] Heparin Sodium (Porcine) (Heparin) 5,000 units SC Q12 [facility] Last Admin: 02/07/18 10:11 Dose: 5,000 units Hydralazine HCl (Apresoline) 25 mg PO Q8H [facility] Vancomycin/Sodium Chloride (Vancomycin 1 Gm/Ns 200 Ml) 1 gm in 200 mls @ 133 mls/hr IVPB TTS [facility] PRN Reason: Protocol Stop: 02/11/18 10:01 Last Admin: 02/06/18 13:25 Dose: 133 mls/hr Piperacillin Sod/Tazobactam (Sod 3.375 gm/ Sodium Chloride) 100 mls @ 200 mls/ hr IVPB Q8H [facility] PRN Reason: Protocol Last Admin: 02/07/18 08:37 Dose: 200 mls/hr Insulin Human Regular (Novolin R) 0 unit SC ACHS [facility] PRN Reason: Protocol Last Admin: 02/07/18 12:57 Dose: 6 units Isosorbide Mononitrate (Imdur) 60 mg PO DAILY [facility] Last Admin: 02/07/18 10:15 Dose: 60 mg Losartan Potassium (Cozaar) 100 mg PO DAILY [facility] Last Admin: 02/07/18 10:11 Dose: 100 mg Metoprolol Succinate (Toprol Xl) 25 mg PO DAILY [facility] Last Admin: 02/07/18 10:11 Dose: 25 mg Pantoprazole Sodium (Protonix Ec Tab) 40 mg PO DAILY [facility] Last Admin: 02/07/18 10:11 Dose: 40 mg Rosuvastatin Calcium (Crestor) 20 mg PO HS [facility] Last Admin: 02/06/18 22:04 Dose: 20 mg Sevelamer Carbonate (Renvela) 1,600 mg PO TIDCC [facility] Last Admin: 02/07/18 08:36 Dose: 1,600 mg Tamsulosin HCl (Flomax) 0.4 mg PO DAILY [facility] Last Admin: 02/07/18 10:11 Dose: 0.4 mg Vitamin B Complex/Vit C/Folic Acid (Nephro-Gail) 1 tab PO 0800 [facility] Last Admin: 02/07/18 08:38 Dose: 1 tab - Labs Labs: 02/05/18 11:05 02/05/18 11:05 - Constitutional Appears: Non-toxic, Chronically Ill - Head Exam Head Exam: NORMOCEPHALIC - Eye Exam Eye Exam: PERRL - ENT Exam ENT Exam: Mucous Membranes Dry - Neck Exam Neck Exam: absent: Thyromegaly - Respiratory Exam Respiratory Exam: Decreased Breath Sounds - Cardiovascular Exam Cardiovascular Exam: REGULAR RHYTHM - GI/Abdominal Exam GI & Abdominal Exam: Distended, Soft - Rectal Exam Rectal Exam: Deferred - Exam Exam: NORMAL INSPECTION - Extremities Exam Extremities Exam: absent: Pedal Edema - Back Exam Back Exam: absent: CVA tenderness (L), CVA tenderness (R) Assessment and Plan (1) Cellulitis Status: Acute (2) ESRD needing dialysis Status: Acute - Assessment and Plan (Free Text) Assessment: cont vanco/zosyn
[2018-02-07] MEDS ORDERED: DiphenhydrAMINE 50 mg/ml Inj IVP STA (22:37)
[2018-02-08] MEDS: Piperacillin/Tazobact 3.375 GM in Sodium Chloride 100 ML IVPB SCH ×2 (00:15→08:44)
--- NOTE | 2018-02-08 07:31 | PN ---
DATE: 02/07/2018 The patient with IV fluids. Supportive care. Psych consult. Tuan Franklin MD
--- NOTE | 2018-02-08 07:31 | HP ---
HISTORY OF PRESENT ILLNESS: The patient is a 57-year-old male, admitting to the hospital complaining of cellulitis. The patient noncompliant . PHYSICAL EXAMINATION: GENERAL: The patient is awake, alert, and oriented. VITAL SIGNS: Temperature 98, pulse 90. HEENT: Within normal limits. NECK: Supple. CHEST: Symmetrical. HEART: Regular. ABDOMEN: Soft. EXTREMITIES: No edema. IMPRESSION AND PLAN: Patient suffers from Cellulitis. The patient is to bed rest, antibiotics. Tuan Franklin MD
--- NOTE | 2018-02-08 07:39 | CP.PCM.PN ---
Subjective - Date & Time of Evaluation Date of Evaluation: 02/08/18 Time of Evaluation: 07:24 Objective - Vital Signs/Intake and Output Vital Signs (last 24 hours): Temp Pulse Resp BP Pulse Ox 98.3 F 78 20 171/83 H 95 02/08/18 05:10 02/08/18 05:10 02/08/18 05:10 02/08/18 05:10 02/08/18 05:10 Intake and Output: 02/08/18 02/08/18 06:59 18:59 Intake Total 900 Output Total 300 Balance 600 - Medications Medications: Current Medications Acetaminophen (Tylenol 325mg Tab) 650 mg PO Q6 PRN PRN Reason: Pain, moderate (4-7) Last Admin: 02/08/18 02:06 Dose: 650 mg Amlodipine Besylate (Norvasc) 10 mg PO DAILY [facility] Last Admin: 02/07/18 10:11 Dose: 10 mg Aspirin (Ecotrin) 81 mg PO DAILY [facility] Last Admin: 02/07/18 10:11 Dose: 81 mg Clonidine HCl (Catapres) 0.3 mg PO Q8H [facility] Last Admin: 02/08/18 05:28 Dose: 0.3 mg Epoetin Jasiel (Procrit) 4,000 unit IV TTS [facility] Last Admin: 02/06/18 10:32 Dose: 4,000 unit Gabapentin (Neurontin) 100 mg PO Q8H [facility] Last Admin: 02/08/18 05:29 Dose: 100 mg Heparin Sodium (Porcine) (Heparin) 5,000 units SC Q12 [facility] Last Admin: 02/07/18 21:12 Dose: 5,000 units Hydralazine HCl (Apresoline) 25 mg PO Q8H [facility] Last Admin: 02/08/18 05:28 Dose: 25 mg Vancomycin/Sodium Chloride (Vancomycin 1 Gm/Ns 200 Ml) 1 gm in 200 mls @ 133 mls/hr IVPB TTS [facility] PRN Reason: Protocol Stop: 02/11/18 10:01 Last Admin: 02/06/18 13:25 Dose: 133 mls/hr Piperacillin Sod/Tazobactam (Sod 3.375 gm/ Sodium Chloride) 100 mls @ 200 mls/ hr IVPB Q8H [facility] PRN Reason: Protocol Last Admin: 02/08/18 00:15 Dose: 200 mls/hr Insulin Human Regular (Novolin R) 0 unit SC ACHS [facility] PRN Reason: Protocol Last Admin: 02/07/18 21:39 Dose: Not Given Isosorbide Mononitrate (Imdur) 60 mg PO DAILY [facility] Last Admin: 02/07/18 10:15 Dose: 60 mg Losartan Potassium (Cozaar) 100 mg PO DAILY [facility] Last Admin: 02/07/18 10:11 Dose: 100 mg Metoprolol Succinate (Toprol Xl) 25 mg PO DAILY [facility] Last Admin: 02/07/18 10:11 Dose: 25 mg Pantoprazole Sodium (Protonix Ec Tab) 40 mg PO DAILY [facility] Last Admin: 02/07/18 10:11 Dose: 40 mg Rosuvastatin Calcium (Crestor) 20 mg PO HS [facility] Last Admin: 02/07/18 21:12 Dose: 20 mg Sevelamer Carbonate (Renvela) 1,600 mg PO TIDCC [facility] Last Admin: 02/07/18 16:33 Dose: 1,600 mg Tamsulosin HCl (Flomax) 0.4 mg PO DAILY [facility] Last Admin: 02/07/18 10:11 Dose: 0.4 mg Vitamin B Complex/Vit C/Folic Acid (Nephro-Gail) 1 tab PO 0800 [facility] Last Admin: 02/07/18 08:38 Dose: 1 tab - Labs Labs: 02/05/18 11:05 02/05/18 11:05
[2018-02-08 08:13] VITALS: PULSE 80
[2018-02-08 08:40] LABS: BASO # 0.1 K/uL (0.0-0.2); BASO % 2.2 % (0.0-2.0); EOS # 0.2 K/uL (0.0-0.7); EOS % 3.1 % (0.0-4.0); HEMOGLOBIN 8.8 g/dL (12.0-18.0); LYMPH # 0.9 K/uL (1.0-4.3); LYMPH % 16.1 % (20.0-40.0); MEAN CELL VOLUME 86.6 fL (80.0-94.0); MEAN CORPUSCULAR HEMOGLOBIN 28.8 pg (27.0-31.0); MEAN CORPUSCULAR HGB CONC 33.2 g/dL (33.0-37.0); MEAN PLATELET VOLUME 10.5 fL (7.2-11.7); MONO # 0.4 K/uL (0.0-0.8); MONO % 6.9 % (0.0-10.0); NEUT # 3.8 K/uL (1.8-7.0); NEUT % 71.7 % (50.0-75.0); RBC 3.06 Mil/uL (4.40-5.90); RED CELL DISTRIBUTION WIDTH 16.1 % (11.5-14.5); WHITE BLOOD COUNT 5.3 K/uL (4.8-10.8)
[2018-02-08] MEDS: (Novolin R) Insulin Human Regular 100 units/ml vial SC SCH ×3 (08:43→16:50)
[2018-02-08] MEDS: Multivitamin Vitamin B Complex (Nephro-Vite) Tab PO SCH (08:44)
[2018-02-08] MEDS: Metoprolol Succinate 25 mg XL Tab PO SCH (09:07)
[2018-02-08 09:10] LABS: ALB/GLOB RATIO 1.3 (1.0-2.1); ALBUMIN 3.2 g/dL (3.5-5.0); CALCIUM 8.3 mg/dl (8.6-10.4)
[2018-02-08] MEDS: Pantoprazole 40 mg EC Tab PO SCH (10:02)
[2018-02-08] MEDS ORDERED: EPOETIN ALFA 4,000 UNIT/ML ML Dialysis IV SCH (10:42)
--- NOTE | 2018-02-08 11:41 | CP.PCM.PN ---
Subjective - Date & Time of Evaluation Date of Evaluation: 02/08/18 Time of Evaluation: 11:39 - Subjective Subjective: Nephrology Consultation Note: Assessment: Stable chest pain, missed HD, CHF exacerbation, hyperkalemia, left arm cellulitis s/p NSTEMI, cardiac arrest, CHF lvef 30% hx of esophageal ulceration, gastroparesis Diabetic chronic Kidney Disease (E11.22) Hypertensive Chronic Kidney Disease (I12.0) End stage renal disease (N18.6) dependence on hemodialysis (Z99.2) (TTS) Anemia (D64.9), Hyperphosphatemia (E83.39), Secondary Hyperparathyroidism (E21.1 ), HTN (I12.0) CAD s/p CABG chronic urine retention Plan: HD tomorrow as ordered per TTS schedule. continue with Nephrovite 1 tab/day. last Hb 8.8 hence TAMICA with HD as ordered maintain hemodynamic stable. Glycemic control, Dialysis consistent diet added phos binders. pt non-compliant to binders as outpt Further work up/management as per primary team Dose meds/antibiotics for ESRD status. Avoid fleets enema/magnesium based laxatives. continue with intermittent straight cath or indwelling myles, pt declined self cath at home. ID following Thanks for allowing me to participate in care of your patient. Will follow patient with you. Please call if any Qs. had d/w team. Dr Philip Wilson Office: [phone] reason for consult: ESRD HPI: Pt is a 57 y/o M with hx of ESRD on hemodialysis (TTS) via permacath, last dialysis sat, chronic anemia, hyperphosphatemia, secondary hyperparathyroidism, Diabetes Mellitus, hypertension, urine retention s/p myles , hx of permacath related infection with psuedomonas and septic embolic, CAD s/ p CABG, esophageal ulceration, gastroparesis, recent admission for NSTEMI/ cardiac arrest/pulm edema s/p AICD came with c/o shortness of breath, chest pain and poor sleep initially at [facility] then transferred to [facility]. left arm swelling/redness and pain worsening, he was given antibiotics Rx as outpt, pt hadn't started outpt HD: refuses HD for 4 hrs as ordered, regularly cuts treatment time to 3 hrs only, counselled and educated multiple times. often misses HD as well ROS: feels same. c/o lack of sleep. reports SOB/chest pain same as before. Physical Examination: General Appearance: pt comfortable not in acute distress, co--operative Vitals reviewed and noted as below Head; Atraumatic, normocephalic ENT: normal mucosa, no rash/ulcer EYES: Pupils are equal, round and reactive to light accommodation. Eye muscles and extraocular movement intact. Sclera is anicteric. Neck; supple no lymphadenopathy, no thyromegaly or bruit Lungs: Normal respiratory rate/effort. Breath sounds bilateral equal and clear b /l .had Rt chest wall tenderness Heart: Normal rate. s1s2 normal. No rub or gallop. left side AICD + Extremities: no edema. No varicose veins. 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 Normal turgor. No rash. Palpitation: Normal elasticity for age Abdomen: Abdomen is soft. Bowel sounds +. There is no abdominal tenderness, no guarding/rigidity or organomegaly Psych: Ao x 3, normal affect mood MSK: no joint tenderness or swelling. Digits and nails normal, no deformity. had toe amputations : kidney or bladder not palpable. chronic myles Access: patent AVF Rt forearm Labs/imaging reviewed. Past medical history, past surgical history, family history, social history, allergy reviewed and noted as below Family Hx: no hx of CKD. Non contributory Objective - Vital Signs/Intake and Output Vital Signs (last 24 hours): Temp Pulse Resp BP Pulse Ox 97.7 F 80 20 115/80 96 02/08/18 08:00 02/08/18 09:05 02/08/18 08:00 02/08/18 09:05 02/08/18 08:00 Intake and Output: 02/08/18 02/08/18 06:59 18:59 Intake Total 900 Output Total 300 Balance 600 - Medications Medications: Current Medications Acetaminophen (Tylenol 325mg Tab) 650 mg PO Q6 PRN PRN Reason: Pain, moderate (4-7) Last Admin: 02/08/18 02:06 Dose: 650 mg Amlodipine Besylate (Norvasc) 10 mg PO DAILY [facility] Last Admin: 02/08/18 09:07 Dose: Not Given Aspirin (Ecotrin) 81 mg PO DAILY [facility] Last Admin: 02/08/18 10:02 Dose: 81 mg Clonidine HCl (Catapres) 0.3 mg PO Q8H [facility] Last Admin: 02/08/18 05:28 Dose: 0.3 mg Epoetin Jasiel (Procrit) 8,000 unit IV TTS [facility] Gabapentin (Neurontin) 100 mg PO Q8H [facility] Last Admin: 02/08/18 05:29 Dose: 100 mg Heparin Sodium (Porcine) (Heparin) 5,000 units SC Q12 [facility] Last Admin: 02/08/18 10:02 Dose: 5,000 units Hydralazine HCl (Apresoline) 25 mg PO Q8H [facility] Last Admin: 02/08/18 05:28 Dose: 25 mg Vancomycin/Sodium Chloride (Vancomycin 1 Gm/Ns 200 Ml) 1 gm in 200 mls @ 133 mls/hr IVPB TTS [facility] PRN Reason: Protocol Stop: 02/11/18 10:01 Last Admin: 02/06/18 13:25 Dose: 133 mls/hr Piperacillin Sod/Tazobactam (Sod 3.375 gm/ Sodium Chloride) 100 mls @ 200 mls/ hr IVPB Q8H [facility] PRN Reason: Protocol Last Admin: 02/08/18 08:44 Dose: 200 mls/hr Insulin Human Regular (Novolin R) 0 unit SC ACHS [facility] PRN Reason: Protocol Last Admin: 02/08/18 08:43 Dose: 6 units Isosorbide Mononitrate (Imdur) 60 mg PO DAILY [facility] Last Admin: 02/08/18 09:07 Dose: Not Given Losartan Potassium (Cozaar) 100 mg PO DAILY [facility] Last Admin: 02/08/18 09:07 Dose: Not Given Metoprolol Succinate (Toprol Xl) 25 mg PO DAILY [facility] Last Admin: 02/08/18 09:07 Dose: Not Given Pantoprazole Sodium (Protonix Ec Tab) 40 mg PO DAILY [facility] Last Admin: 02/08/18 10:02 Dose: 40 mg Rosuvastatin Calcium (Crestor) 20 mg PO HS [facility] Last Admin: 02/07/18 21:12 Dose: 20 mg Sevelamer Carbonate (Renvela) 1,600 mg PO TIDCC [facility] Last Admin: 02/08/18 08:44 Dose: 1,600 mg Tamsulosin HCl (Flomax) 0.4 mg PO DAILY [facility] Last Admin: 02/08/18 10:02 Dose: 0.4 mg Vitamin B Complex/Vit C/Folic Acid (Nephro-Gail) 1 tab PO 0800 [facility] Last Admin: 02/08/18 08:44 Dose: 1 tab - Labs Labs: 02/08/18 08:33 02/08/18 08:33
--- NOTE | 2018-02-08 12:29 | CP.PCM.PN ---
Subjective - Date & Time of Evaluation Date of Evaluation: 02/08/18 Time of Evaluation: 09:00 - Subjective Subjective: afeb' cultures neg thus far celuilitis less Objective - Vital Signs/Intake and Output Vital Signs (last 24 hours): Temp Pulse Resp BP Pulse Ox 97.7 F 80 20 115/80 96 02/08/18 08:00 02/08/18 09:05 02/08/18 08:00 02/08/18 09:05 02/08/18 08:00 Intake and Output: 02/08/18 02/08/18 06:59 18:59 Intake Total 900 Output Total 300 Balance 600 - Medications Medications: Current Medications Acetaminophen (Tylenol 325mg Tab) 650 mg PO Q6 PRN PRN Reason: Pain, moderate (4-7) Last Admin: 02/08/18 12:11 Dose: 650 mg Amlodipine Besylate (Norvasc) 10 mg PO DAILY [facility] Last Admin: 02/08/18 09:07 Dose: Not Given Aspirin (Ecotrin) 81 mg PO DAILY [facility] Last Admin: 02/08/18 10:02 Dose: 81 mg Clonidine HCl (Catapres) 0.3 mg PO Q8H [facility] Last Admin: 02/08/18 05:28 Dose: 0.3 mg Epoetin Jasiel (Procrit) 8,000 unit IV TTS [facility] Gabapentin (Neurontin) 100 mg PO Q8H [facility] Last Admin: 02/08/18 05:29 Dose: 100 mg Heparin Sodium (Porcine) (Heparin) 5,000 units SC Q12 [facility] Last Admin: 02/08/18 10:02 Dose: 5,000 units Hydralazine HCl (Apresoline) 25 mg PO Q8H [facility] Last Admin: 02/08/18 05:28 Dose: 25 mg Vancomycin/Sodium Chloride (Vancomycin 1 Gm/Ns 200 Ml) 1 gm in 200 mls @ 133 mls/hr IVPB TTS [facility] PRN Reason: Protocol Stop: 02/11/18 10:01 Last Admin: 02/06/18 13:25 Dose: 133 mls/hr Piperacillin Sod/Tazobactam (Sod 3.375 gm/ Sodium Chloride) 100 mls @ 200 mls/ hr IVPB Q8H [facility] PRN Reason: Protocol Last Admin: 02/08/18 08:44 Dose: 200 mls/hr Insulin Human Regular (Novolin R) 0 unit SC ACHS [facility] PRN Reason: Protocol Last Admin: 02/08/18 12:12 Dose: 6 units Isosorbide Mononitrate (Imdur) 60 mg PO DAILY [facility] Last Admin: 02/08/18 09:07 Dose: Not Given Losartan Potassium (Cozaar) 100 mg PO DAILY [facility] Last Admin: 02/08/18 09:07 Dose: Not Given Metoprolol Succinate (Toprol Xl) 25 mg PO DAILY [facility] Last Admin: 02/08/18 09:07 Dose: Not Given Pantoprazole Sodium (Protonix Ec Tab) 40 mg PO DAILY [facility] Last Admin: 02/08/18 10:02 Dose: 40 mg Rosuvastatin Calcium (Crestor) 20 mg PO HS [facility] Last Admin: 02/07/18 21:12 Dose: 20 mg Sevelamer Carbonate (Renvela) 1,600 mg PO TIDCC [facility] Last Admin: 02/08/18 12:13 Dose: 1,600 mg Tamsulosin HCl (Flomax) 0.4 mg PO DAILY [facility] Last Admin: 02/08/18 10:02 Dose: 0.4 mg Vitamin B Complex/Vit C/Folic Acid (Nephro-Gail) 1 tab PO 0800 [facility] Last Admin: 02/08/18 08:44 Dose: 1 tab - Labs Labs: 02/08/18 08:33 02/08/18 08:33 - Constitutional Appears: Non-toxic - Head Exam Head Exam: NORMOCEPHALIC - Eye Exam Eye Exam: PERRL - ENT Exam ENT Exam: Mucous Membranes Dry - Neck Exam Neck Exam: absent: Lymphadenopathy - Respiratory Exam Respiratory Exam: Decreased Breath Sounds - Cardiovascular Exam Cardiovascular Exam: REGULAR RHYTHM - GI/Abdominal Exam GI & Abdominal Exam: Distended, Soft Assessment and Plan (1) Cellulitis Status: Acute (2) ESRD needing dialysis Status: Acute
--- NOTE | 2018-02-08 13:10 | VASCLAB ---
Date of service: 02/08/2018 PROCEDURE: Left Upper Extremity Venous Duplex Exam HISTORY: Left arm swelling, arm pain, r/o DVT PRIORS: None. TECHNIQUE: Left upper extremity, internal jugular, subclavian, axillary, brachial, ulnar, radial, basilic and upper cephalic veins were evaluated. Flow was assessed with color Doppler, compressibility, assessment of phasic flow and augmentation response. Report prepared by MIKA Valles FINDINGS: LEFT: 1. Internal Jugular: 1.1. Compressibility - Fully compressible: Thrombus - None : Flow - Phasic: Augmentation -Normal: Reflux - None. 2. Subclavian: 2.1. Unable to scan due to stitches in place 3. Axillary: 3.1. Compressibility - Fully compressible: Thrombus - None : Flow - Phasic: Augmentation -Normal: Reflux - None. 4. Brachial: 4.1. Compressibility - Fully compressible: Thrombus - None: Flow - Phasic: Augmentation -Normal: Reflux - None. 5. Ulnar: 5.1. Compressibility - Fully compressible: Thrombus - None: Flow - Phasic: Augmentation -Normal: Reflux - None. 6. Radial: 6.1. Compressibility - Fully compressible: Thrombus - None: Flow - Phasic: Augmentation - Normal: Reflux - None. 7. Cephalic: 7.1. Compressibility - Incompressible: Thrombus - Acute: Flow - Absent : Augmentation -Normal: Reflux - None. 8. Basilic: 8.1. Compressibility - Fully compressible: Thrombus - None: Flow - Phasic: Augmentation -Normal: Reflux - None. OTHER FINDINGS: Normal venous flow noted in the RIGHT internal jugular and right subclavian veins. IMPRESSION: Left: 1. Superficial phlebitis of the left cephalic vein, at the upper arm level. 2. No evidence of DVT in the left upper extremity. Findings were reported by the vascular radiologist to Evelyn Sousa at 9:51 a.m.
--- NOTE | 2018-02-08 14:10 | CP.PCM.DIS ---
Provider - Provider Date of Admission: 02/04/18 13:28 Attending physician: Tuan Franklin MD Time Spent in preparation of Discharge (in minutes): 45 Hospital Course - Lab Results Lab Results: Most Recent Lab Values WBC 5.3 K/uL (4.8-10.8) 02/08/18 08:33 RBC 3.06 Mil/uL (4.40-5.90) L 02/08/18 08:33 Hgb 8.8 g/dL (12.0-18.0) L 02/08/18 08:33 Hct 26.5 % (35.0-51.0) L 02/08/18 08:33 MCV 86.6 fL (80.0-94.0) 02/08/18 08:33 MCH 28.8 pg (27.0-31.0) 02/08/18 08:33 MCHC 33.2 g/dL (33.0-37.0) 02/08/18 08:33 RDW 16.1 % (11.5-14.5) H 02/08/18 08:33 Plt Count 184 K/uL (130-400) 02/08/18 08:33 MPV 10.5 fL (7.2-11.7) 02/08/18 08:33 Neut % (Auto) 71.7 % (50.0-75.0) 02/08/18 08:33 Lymph % (Auto) 16.1 % (20.0-40.0) L 02/08/18 08:33 [place] % (Auto) 6.9 % (0.0-10.0) 02/08/18 08:33 Eos % (Auto) 3.1 % (0.0-4.0) 02/08/18 08:33 Baso % (Auto) 2.2 % (0.0-2.0) H 02/08/18 08:33 Neut # (Auto) 3.8 K/uL (1.8-7.0) 02/08/18 08:33 Lymph # (Auto) 0.9 K/uL (1.0-4.3) L 02/08/18 08:33 [place] # (Auto) 0.4 K/uL (0.0-0.8) 02/08/18 08:33 Eos # (Auto) 0.2 K/uL (0.0-0.7) 02/08/18 08:33 Baso # (Auto) 0.1 K/uL (0.0-0.2) 02/08/18 08:33 Sodium 135 mmol/L (132-148) 02/08/18 08:33 Potassium 4.5 mmol/L (3.6-5.2) 02/08/18 08:33 Chloride 96 mmol/L (98-107) L 02/08/18 08:33 Carbon Dioxide 24 mmol/L (22-30) 02/08/18 08:33 Anion Gap 20 (10-20) 02/08/18 08:33 BUN 48 mg/dL (9-20) H 02/08/18 08:33 Creatinine 7.8 mg/dL (0.8-1.5) H* D 02/08/18 08:33 Est GFR ( Amer) 9 02/08/18 08:33 Est GFR (Non-Af Amer) 7 02/08/18 08:33 POC Glucose (mg/dL) 277 mg/dL (65-110) H 02/08/18 11:24 Random Glucose 272 mg/dL (75-110) H 02/08/18 08:33 Calcium 8.3 mg/dl (8.6-10.4) L 02/08/18 08:33 Phosphorus 5.1 mg/dL (2.5-4.5) H 02/08/18 08:33 Magnesium 1.9 mg/dL (1.6-2.3) 02/08/18 08:33 Total Bilirubin 0.6 mg/dL (0.2-1.3) 02/08/18 08:33 AST 22 U/L (17-59) 02/08/18 08:33 ALT 46 U/L (21-72) 02/08/18 08:33 Alkaline Phosphatase 129 U/L (38-126) H 02/08/18 08:33 Total Protein 5.7 g/dL (6.3-8.3) L 02/08/18 08:33 Albumin 3.2 g/dL (3.5-5.0) L 02/08/18 08:33 Globulin 2.5 gm/dL (2.2-3.9) 02/08/18 08:33 Albumin/Globulin Ratio 1.3 (1.0-2.1) 02/08/18 08:33 - Hospital Course Hospital Course: 57yo male PMHx ESRD on HD (Thu//Thu), DM type 2 on insulin, SC x3, admitted to via [facility] and referred for ID eval for antibiotic management of cellulitis left arm. The patient reports it started feeling warm for the past couple of days. PMH: ESRD on HD (Thu//Thu), DM type 2 on insulin, SC x3, CAD s/p 3 stents and CABG, HTN, peripheral neuropathy and gastroparesis PSurgHx: Coronary Stents x 3, CABG, Cholecystectomy, left hip surgery, Left knee surgery, Right foot partial amputation SocHx: Former ETOH abuser (~40 years abuse, quit 6-7 years ago); denies tobacco and illicit drug use; admits marijuana intermittently FamHx: Father: pancreatic ca; mother: denies Hospital Course: While admitted the patient had HD. He was started on IV antibiotics while admitted. The patient was evaluated today and determined stable for discharge. Imagin. Venous duplex scan: Superficial phlebitits of left cephalic vein, at the upper arm level, No evidence of DVT in left upper extremity Discharge Instructions: 1. Follow up with PMD within 5 to 7 days after discharge. 2.Continue HD TTS. 3. Encouraged patient to return to hospital for any new or worsening symptoms. Medications: 1.Ancef 2gm IV @ HD TTS X 3 Doses 2. Vancomycin 1gm IV @ HD TTS X 3 Doses Discharge Exam - Head Exam Head Exam: NORMOCEPHALIC - Eye Exam Eye Exam: EOMI, Normal appearance, PERRL Pupil Exam: NORMAL ACCOMODATION, PERRL. absent: Irregular, Unequal - Respiratory Exam Respiratory Exam: Clear to PA & Lateral, NORMAL BREATHING PATTERN. absent: Decreased Breath Sounds, Rales - Cardiovascular Exam Cardiovascular Exam: +S1, +S2 - GI/Abdominal Exam GI & Abdominal Exam: Normal Bowel Sounds, Unremarkable - Neurological Exam Neurological exam: Alert, CN II-XII Intact, Oriented x3 - Psychiatric Exam Psychiatric exam: Normal Affect, Normal Mood - Skin Skin Exam: Dry, Intact, Normal Color Discharge Plan - Discharge Medications Prescriptions: ceFAZolin IV 2 gm in Dextrose [Ancef IV 2 gm DUPLEX] 2 gm IVPB TTS #3 bag Vancomycin 1gm in NS 250ml [Vancomycin 1gm] 1 gm IVPB TTS #3 bag - Follow Up Plan Condition: GUARDED Disposition: HOME/ ROUTINE Instructions: End Stage Kidney Disease (DC), Dialysis and Diet, Cellulitis (DC) Referrals: Tuan Franklin MD [Staff Provider] - Philip Wilson MD [Staff Provider] - Bertin Castillo MD [Staff Provider] -
[2018-02-08 16:00] VITALS: BP 143/77; RESP 20; TEMP 97.5; O2SAT 97
--- NOTE | 2018-02-08 16:07 | PCM.PSYCH ---
Initial Psychiatric Evaluation - Initial Psychiatric Evaluation Chief Complaint (in patient's own words): "I can't sleep" History of Present Illness and Precipitating Events: Patient is a 57 year old male with a past medical history or ESRD was transferred from [facility] for evaluation and treatment of cellulitis in his left arm. Psychiatry was consulted for the patient's difficulty in sleeping and strange dreams. The patient states that he has been having trouble sleeping for the last couple of weeks. He is single and lives alone. The patient recently suffered an OR a couple of weeks ago. The patient states that he has no suicidal ideations, no audio hallucinations, or paranoia. Past medical history: ESRD, DM II on insulin, OR X3, CAD s/p 3 stents and CABG, HTN, peripheral neuropathy Past surgical hx: Coronary stents X3, CABG, cholecystectomy, left hip surgery, right foot partial amputation Social history: former alcohol abuse quit 6 years ago, denies tobacco and illicit drug use, admits to occasional marijuana use Family History: denies Current Medications: Active Medications Generic Name Dose Route Start Last Admin Trade Name Patel PRN Reason Stop Dose Admin Acetaminophen 650 mg 02/04/18 18:51 02/08/18 12:11 Tylenol 325mg Tab PO 650 mg Q6 PRN Administration Pain, moderate (4-7) Amlodipine Besylate 10 mg 02/05/18 10:00 02/08/18 09:07 Norvasc PO Not Given DAILY [facility] Aspirin 81 mg 02/05/18 10:00 02/08/18 10:02 Ecotrin PO 81 mg DAILY [facility] Administration Clonidine HCl 0.3 mg 02/07/18 14:00 02/08/18 14:19 Catapres PO Not Given Q8H [facility] Epoetin Jasiel 8,000 unit 02/08/18 10:42 Procrit IV TTS [facility]I Heparin Sodium (Porcine) 5,000 units 02/05/18 10:00 02/08/18 10:02 Heparin SC 5,000 units Q12 [facility] Administration Hydralazine HCl 25 mg 02/07/18 14:00 02/08/18 14:19 Apresoline PO Not Given Q8H [facility] Vancomycin/Sodium Chloride 1 gm in 200 mls @ 133 mls/hr 02/06/18 10:00 13:25 Vancomycin 1 Gm/Ns 200 Ml IVPB 02/11/18 10:01 133 mls/hr TTS [facility]I Administration Protocol Piperacillin Sod/Tazobactam 100 mls @ 200 mls/hr 02/05/18 16:30 02/08/18 08: 44 Sod 3.375 gm/ Sodium Chloride IVPB 200 mls/hr Q8H [facility] Administration Protocol Insulin Human Regular 0 unit 02/05/18 15:24 02/08/18 12:12 Novolin R SC 6 units ACHS [facility] Administration Protocol Isosorbide Mononitrate 60 mg 02/05/18 10:00 02/08/18 09:07 Imdur PO Not Given DAILY [facility] Losartan Potassium 100 mg 02/05/18 10:00 02/08/18 09:07 Cozaar PO Not Given DAILY [facility] Metoprolol Succinate 25 mg 02/05/18 10:00 02/08/18 09:07 Toprol Xl PO Not Given DAILY [facility] Pantoprazole Sodium 40 mg 02/05/18 10:00 02/08/18 10:02 Protonix Ec Tab PO 40 mg DAILY [facility] Administration Rosuvastatin Calcium 20 mg 02/04/18 22:00 02/07/18 21:12 Crestor PO 20 mg HS [facility] Administration Sevelamer Carbonate 1,600 mg 02/04/18 17:00 02/08/18 12:13 Renvela PO 1,600 mg TIDCC [facility] Administration Tamsulosin HCl 0.4 mg 02/05/18 10:00 02/08/18 10:02 Flomax PO 0.4 mg DAILY [facility] Administration Trazodone HCl 100 mg 02/08/18 22:00 Desyrel PO HS [facility] Vitamin B Complex/Vit C/Folic Acid 1 tab 02/05/18 08:00 02/08/18 08:44 Nephro-Gail PO 1 tab 0800 [facility] Administration Past Psychiatric History - Past Psychiatric History Pertinent Medical Hx (Current Medical&Sleep Prob, Allergies): Allergies Allergy/AdvReac Type Severity Reaction Status Date / Time shellfish derived Allergy ANAPHYLAXIS Verified 02/04/18 07:05 Seafood Allergy ANAPHYLAXIS Uncoded 02/04/18 07:05 Aspirin [Ecotrin] 81 mg PO DAILY 02/04/18 Atorvastatin [Lipitor] 40 mg PO DAILY 02/04/18 Calcium Acetate 667 mg PO TID 02/04/18 Gabapentin [Neurontin] 100 mg PO TID 02/04/18 Insulin Human Regular [HumuLIN R] 0 units SC QID 02/04/18 Isosorbide Mononitrate [Imdur] 60 mg PO DAILY 02/04/18 Lisinopril [Zestril] 5 mg PO DAILY 02/04/18 Losartan [Cozaar] 100 mg PO DAILY 02/04/18 Metoprolol Succinate 25 mg PO DAILY 02/04/18 Omeprazole 20 mg PO DAILY 02/04/18 Ondansetron [Zofran Odt] 4 mg PO Q4 PRN 02/04/18 Pantoprazole Sodium [Protonix] 40 mg PO DAILY 02/04/18 Sevelamer [Renagel] 800 mg PO TID 02/04/18 Tamsulosin HCl [Flomax] 0.4 mg PO DAILY 02/04/18 amLODIPine [Norvasc] 10 mg PO DAILY 02/04/18 cloNIDine [Catapres] 0.3 mg PO TID 02/04/18 hydrALAZINE [hydralazine Hydrochloride] 25 mg PO TID 02/04/18 Vancomycin 1gm in NS 250ml [Vancomycin 1gm] 1 gm IVPB TTS #3 bag 02/08/18 ceFAZolin IV 2 gm in Dextrose [Ancef IV 2 gm DUPLEX] 2 gm IVPB TTS #3 bag Review of Systems - Psychiatric Psychiatric: Abnormal Sleep Pattern Mental Status Examination - Personal Presentation Personal Presentation: Obese - Affect Affect: Broad - Motor Activity Motor Activity: Calm - Reliability in Providing Information Reliability in Providing Information: Fair - Speech Speech: Organized - Formal Thought Process Formal Thought Process: No Impairment - Cognitive Functions Orientation: Person, Place, Situation, Time Estimate of Intelligence: Below average Judgement: Intact, as evidence by: Insight regarding need for hospitalization - Risk Risk: Falls, Diminished functioning - Limitations Limitations: Living alone DSM 5 DX - DSM 5 DSM 5 Diagnosis: Adjustment Disorder - Recommended/Plan of Treatment Treatment Recommendations and Plan of Treatment: Recommend sleep study Trazadone 100 mg Sleep hygiene discussed Support and psychoeducation given Psych will sign off at this time.
[2018-02-08] MEDS ORDERED: SEVELAMER 800 MG PO SCH (18:00)
[2018-02-08] MEDS ORDERED: CALCIUM ACETATE 667 MG PO SCH (18:00)
== END 2018-02-08 17:25 | disposition home or self-care (01) | DRG 563 ==
LOC: C.ER 13:02 → C.9E 13:28 → C.5S 14:39
PROVIDERS: ADMIT Internal Medicine Pulmonary Disease; ATTEND Internal Medicine Pulmonary Disease
PROC: 5A1D70Z Performance of Urinary Filtration, Intermittent, Less than 6 Hours Per Day (ICD-10-PCS; principal; 2018-02-04)
PROC: 5A1D70Z Performance of Urinary Filtration, Intermittent, Less than 6 Hours Per Day (ICD-10-PCS; 2018-02-06)
DX: L03.114 Cellulitis of left upper limb (principal); N18.6 End stage renal disease; I21.4 Non-ST elevation (NSTEMI) myocardial infarction; I13.2 Hypertensive heart and chronic kidney disease with heart failure and with stage 5 chronic kidney disease, or end stage renal disease; I50.9 Heart failure, unspecified; I80.8 Phlebitis and thrombophlebitis of other sites; E11.43 Type 2 diabetes mellitus with diabetic autonomic (poly)neuropathy; E87.5 Hyperkalemia; N25.81 Secondary hyperparathyroidism of renal origin; I25.10 Atherosclerotic heart disease of native coronary artery without angina pectoris; F43.20 Adjustment disorder, unspecified; E83.39 Other disorders of phosphorus metabolism; K31.84 Gastroparesis; Z66 Do not resuscitate; Z79.4 Long term (current) use of insulin; I25.2 Old myocardial infarction; Z86.73 Personal history of transient ischemic attack (TIA), and cerebral infarction without residual deficits; Z87.440 Personal history of urinary (tract) infections; Z87.11 Personal history of peptic ulcer disease; Z91.15 Patient's noncompliance with renal dialysis